=== PATIENT | male | born 1940 | race Caucasian/White ===

== ENCOUNTER 2018-07-09 09:51 | Outpatient (CLI) | payer MEDICARE, SELFPAY ==
--- NOTE | 2018-07-09 10:03 | DI.RAD_ITS ---
SYMPTOM/DIAGNOSIS: LT WRIST PAIN, M25.532 LEFT WRIST: No trauma history is provided. The bony structures are normally mineralized. There are moderate degenerative changes involving the first metacarpal multangular joint. Elsewhere minimal DJD is evident.
== END 2018-07-09 10:11 ==
PROVIDERS: PCP Family Medicine; Visit Provider Family Medicine
DX: M25.532 Pain in left wrist (principal); M19.232 Secondary osteoarthritis, left wrist
CPT/HCPCS: 73110

== ENCOUNTER → 2018-09-13 14:18 | Outpatient (BNVA) | payer MEDICARE, SELFPAY | PROVIDERS: PCP Family Medicine; Visit Provider Urology | DX: R97.20 Elevated prostate specific antigen [PSA] (principal); N47.5 Adhesions of prepuce and glans penis | CPT/HCPCS: 99213 ==

== ENCOUNTER 2018-10-10 02:07 | Outpatient (CLI) | payer OTHER, SELFPAY ==
[2018-10-10 11:12] LABS: HCT 40.2 % (40.0-50.0); HGB 13.7 g/dL (13.5-17.5); Mean Corp. HGB Concentration 34.1 g/dL (32.0-36.0); Mean Corpuscular Hemoglobin 32.9 pg (27.0-33.0); Mean Corpuscular Volume 96.4 fL (80-95); Mean Platelet Volume 10.9 fL (8.0-11.0); Platelet Count 157 x1000/uL (130-400); RBC 4.17 m/cumm (4.50-6.00); RBC Distribution Width 13.8 % (11.8-14.1); White Blood Cell Count 6.53 k/cumm (4.4-10.8)
[2018-10-10 11:25] LABS: Cholesterol 173 mg/dL (50-200); HDL Cholesterol 55 mg/dL (40-60); LDL CHOLESTEROL 97 mg/dL (<100); Triglyceride 96 mg/dL (30-150)
[2018-10-10 11:36] LABS: Uric Acid 4.1 mg/dL (3.5-7.2)
[2018-10-11 10:38] LABS: PSA, Diagnostic 19.3 ng/ml (0-6.5)
== END 2018-10-10 02:27 ==
PROVIDERS: PCP Family Medicine; Visit Provider Urology
DX: E78.5 Hyperlipidemia, unspecified (principal); M10.9 Gout, unspecified; K22.70 Barrett's esophagus without dysplasia; R97.20 Elevated prostate specific antigen [PSA]
CPT/HCPCS: 36415; 80061; 83721; 85027; 84153; 84550

== ENCOUNTER 2018-11-13 01:25 | Outpatient (CLI) | payer OTHER, SELFPAY ==
[2018-11-14 10:36] LABS: PSA, Diagnostic 18.5 ng/ml (0-6.5)
== END 2018-11-13 01:45 ==
PROVIDERS: PCP Family Medicine; Visit Provider Urology
DX: R97.20 Elevated prostate specific antigen [PSA] (principal)
CPT/HCPCS: 36415; 84153

== ENCOUNTER 2019-04-29 01:33 | Outpatient (CLI) | payer OTHER, SELFPAY ==
[2019-04-30 09:34] LABS: PSA, Diagnostic 18.9 ng/ml (0-6.5)
== END 2019-04-29 01:53 ==
PROVIDERS: PCP Family Medicine; Visit Provider Urology
DX: R97.20 Elevated prostate specific antigen [PSA] (principal)
CPT/HCPCS: 36415; 84153

== ENCOUNTER → 2019-05-09 15:17 | Outpatient (BNVA) | payer OTHER, SELFPAY | PROVIDERS: PCP Family Medicine; Visit Provider Urology | DX: R97.20 Elevated prostate specific antigen [PSA] (principal) | CPT/HCPCS: 99213 ==

== ENCOUNTER 2019-10-14 02:13 | Outpatient (CLI) | payer OTHER, SELFPAY ==
[2019-10-14 13:25] LABS: HCT 40.8 % (40.0-50.0); Mean Corp. HGB Concentration 34.3 g/dL (32.0-36.0); Mean Corpuscular Volume 96.2 fL (80-95); Mean Platelet Volume 10.7 fL (8.0-11.0); Platelet Count 156 x1000/uL (130-400); RBC 4.24 m/cumm (4.50-6.00); RBC Distribution Width 13.5 % (11.8-14.1); White Blood Cell Count 5.32 k/cumm (4.4-10.8)
[2019-10-15 10:38] LABS: PSA, Diagnostic 19.7 ng/mL (0.0-6.5)
== END 2019-10-14 02:33 ==
PROVIDERS: Urology; PCP Family Medicine; Visit Provider Family Medicine
DX: M10.9 Gout, unspecified (principal); K44.9 Diaphragmatic hernia without obstruction or gangrene; R97.20 Elevated prostate specific antigen [PSA]
CPT/HCPCS: 36415; 85027; 84153; 84550

== ENCOUNTER → 2019-11-07 08:52 | Outpatient (BNVA) | payer OTHER, SELFPAY | PROVIDERS: PCP Family Medicine; Referring Provider Family Medicine; Visit Provider Urology | DX: R97.20 Elevated prostate specific antigen [PSA] (principal); N40.0 Benign prostatic hyperplasia without lower urinary tract symptoms | CPT/HCPCS: 99213 ==

== ENCOUNTER 2020-11-01 02:38 | Outpatient (CLI) | payer OTHER, SELFPAY ==
[2020-11-01 12:33] LABS: Calculated LDL 91 mg/dL (<100); Cholesterol 160 mg/dL (<200); HDL Cholesterol 55 mg/dL (40-60); Triglyceride 70 mg/dL (<150)
[2020-11-01 22:29] LABS: PSA, Diagnostic 30.8 ng/mL (0.0-6.5)
== END 2020-11-01 02:39 | disposition home or self-care (01) ==
PROVIDERS: PCP Family Medicine; Visit Provider Family Medicine
DX: E78.5 Hyperlipidemia, unspecified (principal); C61 Malignant neoplasm of prostate
CPT/HCPCS: 36415; 80061; 84153

== ENCOUNTER → 2020-11-11 14:51 | Outpatient (BNVA) | payer OTHER, SELFPAY | PROVIDERS: PCP Family Medicine; Referring Provider Family Medicine; Visit Provider Nurse Practitioner Gerontology | DX: R97.20 Elevated prostate specific antigen [PSA] (principal); N40.0 Benign prostatic hyperplasia without lower urinary tract symptoms | CPT/HCPCS: 81003; 99214 ==

== ENCOUNTER 2021-05-04 03:29 | Outpatient (CLI) | payer OTHER, SELFPAY ==
[2021-05-04 22:12] LABS: PSA, Diagnostic 35.9 ng/mL (0.0-6.5)
== END 2021-05-04 03:30 | disposition home or self-care (01) ==
LOC: LBO 03:29
PROVIDERS: PCP Family Medicine; Visit Provider Nurse Practitioner Gerontology
DX: R97.20 Elevated prostate specific antigen [PSA] (principal)
CPT/HCPCS: 36415; 84153

== ENCOUNTER → 2021-05-10 14:54 | Outpatient (BNVA) | payer OTHER, SELFPAY | PROVIDERS: PCP Family Medicine; Referring Provider Family Medicine; Visit Provider Nurse Practitioner Gerontology | DX: R39.89 Other symptoms and signs involving the genitourinary system (principal); R97.20 Elevated prostate specific antigen [PSA] | CPT/HCPCS: 99214 ==

== ENCOUNTER 2021-05-26 01:23 | Outpatient (CLI) | payer OTHER, SELFPAY ==
--- NOTE | 2021-05-26 08:15 | DI.US_ITS ---
Exam(s) US PROSTATE BIOPSY EXAM: US PROSTATE BIOPSY CLINICAL HISTORY: ELEVATED PSA,R97.20 TECHNIQUE: Transrectal ultrasound was provided for Dr. Roe for guidance with performing prostate b iopsy. COMPARISON: No exams were available for comparison FINDINGS: No images were obtained. Please see procedure note for details. DATA REPOSITORY:
--- NOTE | 2021-05-26 14:10 | PROST_PTH ---
PATIENT: Ministerio Trevino LOC: [facility] U#:[id number] AGE/SX: 80/M ROOM: RE05/26/[address]: Lynne Beebe DNP : 1940 BED: DIS: 05/26/2021 SPEC #: [id number] RECD: 05/26/21 16:11 STATUS: ANG RE #: [id number] DENAE: 05/26/21 14:[address]: Lynne Bermudez DEPT: Surgical Specimen RECD BY: Manju Del Rio ENTERED: 05/26/21 16:14 SP TYPE: PROST OTHR DR: Demarco Lopez MD Tissues: 1 - PROSTATE NEEDLE BIOPSY 2 - PROSTATE NEEDLE BIOPSY 3 - PROSTATE NEEDLE BIOPSY 4 - PROSTATE NEEDLE BIOPSY 5 - PROSTATE NEEDLE BIOPSY 6 - PROSTATE NEEDLE BIOPSY 7 - PROSTATE NEEDLE BIOPSY 8 - PROSTATE NEEDLE BIOPSY 9 - PROSTATE NEEDLE BIOPSY 10 - PROSTATE NEEDLE BIOPSY 11 - PROSTATE NEEDLE BIOPSY 12 - PROSTATE NEEDLE BIOPSY Procedures: GROSS AND MICRO LEVEL 4 Comments: [id number]
--- NOTE | 2021-05-26 15:00 | W.PM.OP ---
Date of service: 05/26/21 Time of Service: 15:00 Operative Note Operative Note DATE OF PROCEDURE: 05/26/21 PRE-OP DIAGNOSIS: PSA elevated POST-OP DIAGNOSIS: same PROCEDURE: Transrectal ultra sound guided biopsy of the prostate SURGEON: Allen Roe ANESTHESIA TYPE: Local By Surgeon Refer to Anesthesia Record ESTIMATED BLOOD LOSS: 5 PATHOLOGY: other (12 laterally directed biopsies from the prostate) COMPLICATIONS: None Patient was transported to: same day Patient's condition: stable Indications: This is a 80-year-old gentleman who has had a negative prostate biopsy in the past. His PSA has gradually been raising and is now up to 35 ng/dL. He presents for repeat biopsy. Findings: Prostate volume 53 cc Procedure Description: The patient was given a preprocedural antibiotic and mechanical bowel prep. He is brought to the radiology suite on 05/26/2021. He was then placed in the left lateral position. The transrectal ultrasound probe was placed and the prostate was imaged in transverse and longitudinal planes. The prostatic volume was 53 cc. A periprostatic nerve block was then performed using 1% Xylocaine. The transition zone was enlarged. The peripheral zone was somewhat asymmetric with the left side being larger than the right. A total of 12 laterally directed biopsies were then taken. Each of the biopsies was labeled and sent to pathology for permanent section. The patient tolerated this procedure well. He will return in 2 weeks to review the pathology results.
== END 2021-05-26 01:43 ==
PROVIDERS: PCP Family Medicine; Visit Provider Nurse Practitioner Gerontology
DX: R97.20 Elevated prostate specific antigen [PSA] (principal); C61 Malignant neoplasm of prostate
CPT/HCPCS: 55700; 76942; 88305

== ENCOUNTER → 2021-06-10 10:53 | Outpatient (BNVA) | payer OTHER, SELFPAY | PROVIDERS: PCP Family Medicine; Referring Provider Family Medicine; Visit Provider Urology | DX: C61 Malignant neoplasm of prostate (principal) | CPT/HCPCS: 99215 ==

== ENCOUNTER 2021-06-24 02:28 | Outpatient (CLI) | payer OTHER, SELFPAY ==
--- NOTE | 2021-06-24 06:45 | DI.CT_ITS ---
Exam(s) CT ABDOMEN PELVIS W EXAM: CT ABDOMEN PELVIS W CLINICAL HISTORY: r/o mets,PROSTATE CA,C61 TECHNIQUE: Imaging Protocol: Axial computed tomography images with coronal and sagittal reformatted images were created and reviewed CONTRAST MATERIAL: Intravenous: Omnipaque 350 Contrast volume:100 mL Oral: Yes COMPARISON: CT CHEST FOR PULMONARY EMBOLUS from 08/18/2016 FINDINGS: ABDOMEN: Lung Bases: Normal where visualized. Small hiatal hernia. Liver: Normal density. No measurable mass. There is a lobulated contour of the liver suggesting hepat ic cirrhosis. Please correlate clinically. Portal, Superior Mesenteric, and Splenic Veins: Unremarkable. Gallbladder and Biliary Tract: No radiodense calculus or dilation. Pancreas: Normal density, no abnormal calcifications or inflammatory process. Spleen: Normal. Adrenals: No masses seen. Kidneys: Normal size, contour and axis. No radiodense stones or obstructive uropathy. No masses seen. Abdominal Aorta: Abdominal portion non-dilated. Moderate atherosclerosis. Bowel: No obstruction or bowel wall thickening. Appendix is unremarkable. There is diverticulosis see n in the sigmoid colon, but no evidence of acute diverticulitis. Peritoneal Cavity: No ascites, collection or mesenteric inflammatory response. No free air. Lymph Nodes: Within normal limits. Bones: Within normal limits for the patient's age. No lytic or sclerotic lesions are seen. Soft Tissues: Unremarkable. PELVIS: Bladder: There is diffuse thickening of the wall of the urinary bladder. This may be due to chronic bladder outlet obstruction but an infectious/inflammatory process cannot be excluded. Reproductive Organs: The prostate gland is enlarged and lobulated. There is heterogeneous enhancemen t. Lymph Nodes: Within normal limits. Bones: No lytic or sclerotic lesions. IMPRESSION: 1. No evidence of abdominal or pelvic metastatic disease. 2. Enlarged heterogeneously enhancing prostate gland. 3. Diffuse thickening of the wall of the urinary bladder. Differential considerations include underd istention, chronic bladder outlet obstruction, or an infectious/inflammatory process. Please clinica lly correlate. 4. Lobulated contour of the liver suspicious for hepatic cirrhosis. 5. Sigmoid diverticulosis, but no evidence of acute diverticulitis. RADIATION DOSE DELIVERED: 767.88mGy.cm Total DLP DATA REPOSITORY: All CT scans at this facility are submitted to the National Radiology Data Registry (NRDR) Dose Index Registry (DIR) with the [employer] (ACR). RADIATION OPTIMIZATION: All CT scans at this facility use at least one of these dose optimization te chniques: automated exposure control; mA and/or kV adjustment per patient size (includes targeted exa ms where dose is matched to clinical indication); or iterative reconstruction.
--- NOTE | 2021-06-24 06:55 | DI.NM_ITS ---
Exam(s) NM BONE SCAN WHOLE BODY GRP EXAM: NM BONE SCAN WHOLE BODY GRP CLINICAL HISTORY: r/o mets,PROSTATE CA,C61. TECHNIQUE: Injected Dose: 26 mCi Tc-99m MDP Delayed Images: 2-3 hours. COMPARISON: CR LEFT KNEE LIMITED 1 OR 2 VIEWS from 08/13/2012 CR LEFT KNEE LIMITED 1 OR 2 VIEWS from 08/13/[address] ABDOMEN PELVIS W from 06/24/2021 FINDINGS: Symmetric axial uptake. Bilateral renal excretion is identified. There is a focus of increased radiot racer uptake at the right aspect of the L4-L5 disc level. Comparison with a CT scan performed the show degenerative changes in this region. No lytic or sclerotic lesion is identified in this area. There is a photopenic area in the left knee consistent with the patient's known left total kne e replacement. There is symmetric activity in the shoulders most consistent with degenerative change s. IMPRESSION: 1. No evidence of metastatic disease. 2. Uptake in the lumbar spine at the L4-5 level on the right likely reflecting the degenerative celeste es seen on the CT scan from 06/24/2021. DATA REPOSITORY:
[2021-06-24] MEDS: Omnipaque 350 MG/ML 50 ML BTL IJ (09:11)
[2021-06-24] MEDS: Breeza Beverage 473 ML BTL PO (09:13)
== END 2021-06-24 02:48 ==
PROVIDERS: PCP Family Medicine; Visit Provider Urology
DX: C61 Malignant neoplasm of prostate (principal); M47.816 Spondylosis without myelopathy or radiculopathy, lumbar region; K57.30 Diverticulosis of large intestine without perforation or abscess without bleeding; N40.0 Benign prostatic hyperplasia without lower urinary tract symptoms
CPT/HCPCS: 78306; 74177; 82565; Q9967

== ENCOUNTER → 2021-06-27 14:56 | Outpatient (BNVA) | payer OTHER, SELFPAY | PROVIDERS: PCP Family Medicine; Referring Provider Family Medicine; Visit Provider Urology | DX: C61 Malignant neoplasm of prostate (principal) | CPT/HCPCS: 96402; J9217 ==

== ENCOUNTER → 2021-07-14 14:49 | Outpatient (BNVA) | payer OTHER, SELFPAY | PROVIDERS: PCP Family Medicine; Referring Provider Family Medicine; Visit Provider Physical Therapy Assistant | DX: R13.10 Dysphagia, unspecified (principal) | CPT/HCPCS: 99213 ==

== ENCOUNTER → 2021-07-28 13:26 | Outpatient (BNVA) | payer OTHER, SELFPAY | PROVIDERS: PCP Family Medicine; Referring Provider Family Medicine; Visit Provider Nurse Practitioner Gerontology | DX: C61 Malignant neoplasm of prostate (principal) | CPT/HCPCS: 96402; J9217 ==

== ENCOUNTER 2021-07-29 03:16 | Outpatient (CLI) | payer OTHER, SELFPAY ==
[2021-07-29 10:47] LABS: Source Nasal/Nares
[2021-07-29 15:01] LABS: COVID-19 PCR Negative (Negative)
== END 2021-07-29 03:17 | disposition home or self-care (01) ==
LOC: LBO 03:16
PROVIDERS: PCP Family Medicine; Visit Provider Surgery
DX: Z20.822 Contact with and (suspected) exposure to COVID-19 (principal); Z01.818 Encounter for other preprocedural examination
CPT/HCPCS: 87635

== ENCOUNTER 2021-08-01 08:14 | Day surgery (SDC) | payer OTHER, SELFPAY ==
--- NOTE | 2021-08-01 06:34 | W.PM.ENDDOP ---
Date of service: 08/01/21 Time of Service: 09:59 Endoscopy Report DATE OF PROCEDURE: 08/01/21 PRE-OP DIAGNOSIS: Dysphagia POST-OP DIAGNOSIS: other (Hiatal Hernia, Esophagitis, Gastritis with polyps) PROCEDURE: EGD with biopsies SURGEON: Kayla Chaves ANESTHESIA TYPE: General:No Airway (Carmen Mathis CRNA) ESTIMATED BLOOD LOSS: 3 PATHOLOGY: other (Antrum Bx, Cardia bx, Distal esophagus bx) COMPLICATIONS: None DISPOSITION: same day INDICATIONS: 80 y/o male with a history of GERD, hiatal hernia and hyperlipidemia presents for further evaluation of dysphagia. Patient has previously under gone several EGDs at [facility] in 2013, 2015, 2018 for surveillance of his Barretts esophagus.. He reports being due in 2022. Most recent Colonoscopy was in 2018 which was remarkable for a single polyp, with recommended follow up in 5 years. However, he has been progressively having difficulty swallowing items such as meats. He and his describe frequent coughing through all meals. He denies any pain with swallowing, heart burn, abdominal pain or bloating. FINDINGS: Inflammation of the stomach with several polyps Hiatal hernia Inflammation of the distal esophagus PROCEDURE DESCRIPTION: After informed consent was obtained the patient was take to the procedure room and placed in a supine position. Monitors were applied and a time out was done. The patients name, date of , procedure type, allergies to medications and metal in their body was reviewed. A bite block was placed and the patient was sedated. Once sedated and comfortable the gastroscope was advanced through the oropharynx which was grossly normal into the esophagus. The proximal and mid-esophagus were normal. In the distal esophagus there was inflammation noted. The scope was advanced into the stomach and through the pylorus into the 3rd portion of the duodenum. The duodenum was noted to be normal. The scope was retracted back into the stomach and biopsies were done to rule out H. pylori. There were no ulcers. There was moderate inflammation throughout the stomach. There were 2 polyps in the cardia which were biopsied. The scope was retroflexed. The cardia and fundus were noted to have inflammation. There was a hiatal hernia noted. The scope was retracted back into the esophagus and biopsies were done of the GE junction to rule out Landers's. The Z line was irregular. The GE junction was at 38 cm. There was erosion of the esophageal lining at 37 cm and this was biopsied. The scope was removed and the patient was woken up and taken back to [facility] in stable condition. Follow up: I will call patient with results. Add Carafate to take TID before meals
--- NOTE | 2021-08-01 06:35 | PDOC.DSDIS_ITS ---
Discharge Plan Disposition Patient Disposition: HOME Condition: Good Discharge Details Reason For Visit: EGD Attending Provider: Kayla Chaves Primary Care Provider: Demarco Lopez Home Meds and New Rx's Prescriptions: New sucralfate [Carafate] 1 gram tablet 1 g PO TID 14 Days Qty: 42 RF: 0 Continued fluocinonide 0.05 % cream 1 applic TP PRN RF: 0 triamcinolone acetonide 0.1 % cream 1 applic TP PRN RF: 0 creamy vaseline See Rx Instructions topical .COMPLEX RF: 0 vitamin B complex [B Complex-Vitamin B12] Tablet 1 tab PO DAILY RF: 0 valacyclovir 1 gram tablet 1,000 mg PO DAILY Qty: 30 RF: 2 pantoprazole 40 mg tablet,delayed release (DR/EC) 40 mg PO DAILY Qty: 90 RF: 4 simvastatin 40 mg tablet 40 mg PO DAILY Qty: 90 RF: 4 allopurinol 300 mg tablet 300 mg PO DAILY Qty: 90 RF: 4 cholecalciferol (vitamin D3) 10 mcg (400 unit) capsule 10 mcg PO DAILY RF: 0 calcium carbonate [Calcium 600] 600 mg calcium (1,500 mg) tablet 600 mg PO DAILY RF: 0 Lupron Depot (3 month) 11.25 mg Syringe Kit IM RF: 0 Discharge Instructions Instructions: Diet for Stomach Ulcers and Gastritis (ED), Gastritis (DC), Gastric Polyps (DC), Hiatal Hernia (DC), Esophagitis (DC) Additional Instructions: Findings: Inflammation of the stomach, esophagus Hiatal hernia Follow up: I am ordering a Barium swallow to look at the function of the esophagus and make sure you are not aspirating Please call if you develop: fevers >101.5 Nausea or Vomiting Abdominal pain that is not transient Rectal bleeding that is more then a tbsp A hard abdomen and inability to pass gas DAY SURGERY UNIT POST ENDOSCOPY INSTRUCTIONS Instructions for everyone who is given Anesthesia: For your safety, please do the following for the next 24 Hours: a. Do not drive or operate dangerous equipment b. Do not drink alcohol beverages or use any recreational drugs for the first 24 hours or while taking pain medications. The medications in your body may have a reaction that can be dangerous. c. Do not make any important decisions or sign any important papers 1. Generally there are no restrictions on your activity after a day or so has gone by, but you may feel a bit fatigued for a few days. 2. After you arrive home you may have a light meal and return to a normal diet as you can tolerate it without feeling sick to your stomach. 3. After surgery, you may feel pain or discomfort. This should be only transi ent, but if it persists please contact your doctor. 4. If there are any questions regarding the findings of your procedure, please feel free to contact your doctor. 6. If you are unable to contact your doctor with a problem, contact the hospital at [phone]. 7. Continue all your regular medications unless directed otherwise. I understand the above instructions and have no questions. Signature of Patient or Responsible Adult Escort Date/Time Name of Responsible Adult Escort Signature of Nurse Date/Time Activity:: Activity as Tolerated Diet:: low acid Discharge Orders Discharge Orders: Discharge Order (Routine); Ordered 08/01/21 Ordered By: Kayla Chaves
[2021-08-01 08:43] VITALS: BP 128/60; PULSE 54; RESP 16; TEMP 36.4; O2SAT 97
--- NOTE | 2021-08-01 09:03 | ANES.PREOP_ITS ---
General Info Date of Service Date Performed: 08/01/21 Height: 5 ft 6 in Weight: 78.4 kg Body Mass Index (BMI): 27.8 Surgical Procedure: Operation Date: 08/01/21 09:50 Proposed Procedures Side Surgeon p Gastroscopy Kayla Chaves MD Meds Allergies and Home Medications Allergies Allergy/AdvReac Type Severity Reaction Status Date / Time No Known Allergies Allergy Verified 08/01/21 08:36 Home Medication Medication Instructions Recorded creamy vaseline See Rx Instructions TOPICAL 10/17/19 .COMPLEX fluocinonide 0.05 % topical cream 1 applic TP PRN gm 10/17/19 triamcinolone acetonide 0.1 % 1 applic TP PRN gm 10/17/19 topical cream allopurinol 300 mg tablet 300 mg PO DAILY #90 tab-cap 10/22/20 pantoprazole 40 mg tablet,delayed 40 mg PO DAILY #90 tab-cap 10/22/20 release simvastatin 40 mg tablet 40 mg PO DAILY #90 tab-cap 10/22/20 valacyclovir 1 gram tablet 1,000 mg PO DAILY #30 tab 10/22/20 vitamin B complex 1 tab PO DAILY 10/22/20 calcium carbonate 600 mg calcium 600 mg PO DAILY 07/14/21 (1,500 mg) tablet cholecalciferol (vitamin D3) 10 10 mcg PO DAILY 07/14/21 mcg (400 unit) capsule leuprolide (3 month) [Lupron Depot mg IM 08/01/21 (3 month)] Current Visit Medications: Current Medications Generic Name Dose Route Start Last Admin Trade Name Freq PRN Reason Stop Dose Admin Hyoscyamine Sulfate 0.125 mg 08/01/21 06:36 Hyoscyamine 0.125 Mg Sl/Oral/Chew SL DIRECTED PRN Ringer's Solution 1,000 mls @ 80 mls/hr 08/01/21 06:00 IV 08/28/21 23:59 INFUSION ZONIA IV Miscellaneous Supplies 1 each 08/01/21 06:00 Iv Access IV 08/28/21 23:59 DIRECTED [facility] Ondansetron HCl 4 mg 08/01/21 06:36 Ondansetron 4 Mg/2 Ml Vial IVP Q4H PRN PRN Nausea / Vomiting Sodium Chloride 0 ml 08/01/21 06:00 Normal Saline Flush 10 Ml Syr IV 08/28/21 23:59 PRN PRN Sodium Chloride 0 ml 08/01/21 06:00 Normal Saline 10 Ml Vial IJ 08/28/21 23:59 DIRECTED PRN Sterile Water 0 ml 08/01/21 06:00 Water,Injection,Sterile 10 Ml Vial IJ 08/28/21 23:59 DIRECTED PRN PFSH Active Problems Active Problems: Problem Status Onset Code 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 game Surgical History Surgical History Arthroplasty of knee 10/03/11; LEFT LACERATION REPAIR (09/23/1949) NASOPHARYNGOSCOPY (08/17/97) Tonsillectomy (~1947) Tobacco Smoking/Tobacco Use Status: Former Tobacco Use Passive smoking exposure: Yes Second hand exposure: Yes Alcohol Alcohol Intake: current Alcohol intake frequency: 0-2 drinks per day Alcohol type: beer and hard liquor Substance Use Substance use: Never Substance use type: does not use Details: alcohol: t-1 , 1/4 ounce alcohol Vital Signs and Lab Results Vital Signs Most Recent Vital Signs in EMR: Most Recent Vital Signs Temp Pulse Resp BP Pulse Ox 36.4 C L 54 L 16 128/60 97 08/01/21 08:43 08/01/21 08:43 08/01/21 08:43 08/01/21 08:43 08/01/21 08:43 Lab Results Blood Type / Crossmatch: No Data to Display Complete Blood Count: No Data to Display Complete Metabolic Panel: No Data to Display Liver Function Panel: No Data to Display Coagulation Panel: No Data to Display Cardiac Panel: No Data to Display Arterial Blood Gas: No Data to Display Venous Blood Gas: No Data to Display Pancreas Panel: No Data to Display Thyroid Panel: No Data to Display Infectious Disease: Coronavirus (COVID-19)(PCR) Negative (Negative) 07/29/21 09:01 07/29/21 Coronavirus 2019 Source Nasal/Nares 07/29/21 09:01 07/29/21 Blood Cultures: No Data to Display Toxicology Panel: No Data to Display Imaging and Studies Imaging and Studies Stress Test Summary: Summary: 1. Myocardial perfusion imaging: No myocardial perfusion defects noted. 2. Stress ECG conclusions: Barrios treadmill score: -21. This score predicts a high risk of cardiac events. 3. Impressions: Typical symptoms developed with exercise. Significant EKG changes in multiple leads with prolonged time to improvement in recovery. Abnormal hemodynamics with exercise. Normal perfusion, however significant loop of bowel on rest images. No TID. Patient will likely require LHC, patient should follow up with cardiology. 09/06/15 Anesthesia Assessment and Plan Anesthesia History Personal History: No History of Anesthesia Complications Family History: No Family History of Anesthesia Complications Exercise Tolerance Exercise Tolerance: Metabolic Equivalents>4 Pertinent Negatives Pertinent Negatives: No Symptoms of GERD (Dysphagia), No Major Cardiovascular Symptoms or Complaints, No Major Pulmonary Symptoms or Complaints and No History of CVA/TIA Cardiac & Pulmonary Exam Cardiac Exam: Normal S1/S2 Heart Sounds Pulmonary Exam: Clear Bilateral Breath Sounds Implantable Cardiac Device Does patient have a Pacemaker or an ICD?: No Airway Exam Known Difficult Airway: No Mallampati Class: 2 Mouth Opening: Normal (> 3cm) Thyromental Distance: Greater than 3 cm Neck Range of Motion: Full ROM Neck Circumference: Normal Teeth Condition: Normal Dentition ASA Classification ASA Score: ASA 2 Emergency Case?: No NPO Status NPO Status: NPO Clears >2 hours, Solids >8 hours Anesthesia Plan Resuscitation Status: Full Code Anesthesia Technique: General Anesthesia Airway Planned: Natural Airway Monitors Used: Standard Monitors
[2021-08-01] MEDS: Lactated Ringers 1,000 ML 80 ML IV (09:05)
[2021-08-01 09:30] VITALS: BMI 27.8
--- NOTE | 2021-08-01 09:45 | STOM_PTH ---
PATIENT: Ministerio Trevino LOC: [facility] U#:[id number] AGE/SX: 80/M ROOM: RE08/01/[address]: Kayla Chaves MD : 1940 BED: DIS: 08/01/2021 SPEC #: [id number] RECD: 08/01/21 12:30 STATUS: ANG REQ #: [id number] DENAE: 08/01/21 09:[address]: Kayla Chaves DEPT: Surgical Specimen RECD BY: Manju Del Rio ENTERED: 08/01/21 12:31 SP TYPE: STOMACH OTHR DR: Demarco Lopez MD Tissues: 1 - STOMACH BIOPSY 2 - STOMACH BIOPSY 3 - ESOPHAGUS BIOPSY Procedures: GROSS AND MICRO LEVEL 4 Comments: [id number]
[2021-08-01 10:00] VITALS: BP 132/65; PULSE 68; RESP 20; TEMP 36.4; O2SAT 99
[2021-08-01 10:28] VITALS: BP 105/55; PULSE 49; RESP 18; TEMP 36.4; O2SAT 100
--- NOTE | 2021-08-01 10:34 | W.ANESPOSTOP ---
Postoperative Evaluation Date, Time and Location Date Performed: 08/01/21 Time Performed: 10:00 Patient Location: Day Surgery Unit Vital Signs Most Recent Imported Vital Signs: Most Recent Vital Signs Temp Pulse Resp BP Pulse Ox 36.4 C L 68 20 132/65 99 08/01/21 10:00 08/01/21 10:00 08/01/21 10:00 08/01/21 10:00 08/01/21 10:00 Pain Score Most Recent Pain Score: Most Recent Pain Score Pain Level 0 08/01/21 10:00 Assessment Mental Status: Awake (Alert & Oriented to Patient Baseline) Airway and Respiratory Function: Patent airway with normal (patient baseline) respiratory exam Cardiovascular Function: Hemodynamically Stable Hydration Status: Adequately Hydrated Nausea & Vomiting: No Nausea or Vomiting Pain: Pt. Denies Any Pain Peripheral Nerve Block: Patient did not receive a nerve block
== END 2021-08-01 11:04 | disposition home or self-care (01) ==
PROVIDERS: PCP Family Medicine; Visit Provider Surgery
PROC: 0DJ68ZZ Inspection of Stomach, Via Natural or Artificial Opening Endoscopic (ICD-10-PCS; CPT 43235; principal; 2021-08-01 09:45)
DX: K29.70 Gastritis, unspecified, without bleeding (principal); K22.70 Barrett's esophagus without dysplasia; K44.9 Diaphragmatic hernia without obstruction or gangrene; K31.7 Polyp of stomach and duodenum; K20.90 Esophagitis, unspecified without bleeding; E78.5 Hyperlipidemia, unspecified
CPT/HCPCS: 43239; 88305; J2001; J2704

== ENCOUNTER 2021-08-12 01:46 | Outpatient (CLI) | payer OTHER, SELFPAY ==
--- NOTE | 2021-08-12 07:30 | DI.RAD_ITS ---
Exam(s) RF BARIUM SWALLOW UGI EXAM: RF BARIUM SWALLOW UGI CLINICAL HISTORY: Dysphagia, ? aspiration, BARRETTS ESOPHAGUS, HIATAL HERNIA TECHNIQUE: 2D and realtime digital imaging was performed. CONTRAST MATERIAL: Thick and thin barium and barium tablet were administered. COMPARISON: CT CT ABDOMEN PELVIS W from 06/24/2021 FINDINGS: The lateral tack cutter view of the neck shows degenerative changes, greatest at C 6 7. No prevertebral so ft tissue swelling. Epiglottis appears normal. PA and lateral chest tack cutter so normal heart size and clear lung michael. Mildly tortuous aorta. Mild degenerative changes are noted in the spine. Automobile Technician view of the abdomen shows a normal bowel gas pattern. Degenerative changes and mild scoliosis are no bridgette. There is no evidence of organomegaly. There are no visible urinary tract calculi. Patient swallowed barium without difficulty. Laryngeal penetration and alannah aspiration was observed . Esophageal peristalsis appears normal. There is some pooling in the vallecula and piriform sinuse s. There is a prominent cricopharyngeus impression. A tiny Zenker's diverticulum is also present. There is a small hiatal hernia. No significant reflux was observed. there is no evidence of ulcera tion, stricture or mass in the esophagus, stomach or duodenum. Barium tablet passed into the stomach without delay. Multiple diverticula are noted in the jejunum. IMPRESSION: 1. Significant aspiration during the swallow. 2. Small hiatal hernia. Tiny Zenker diverticulum. 3. Multiple jejunal diverticula. RADIATION DOSE DELIVERED: Ka,r= mGy
[2021-08-12] MEDS: Simethicone/Sod Bicarb/Cit Ac, 4 gram PACKET 1 PACKET PO (09:44)
[2021-08-12] MEDS: Barium Sulfate 700 MG TAB PO (09:44)
[2021-08-12] MEDS: Barium Sulfate 60% W/V 355 ML BTL PO (09:44)
== END 2021-08-12 02:06 ==
PROVIDERS: PCP Family Medicine; Visit Provider Surgery
DX: R13.10 Dysphagia, unspecified (principal); K22.70 Barrett's esophagus without dysplasia; K22.5 Diverticulum of esophagus, acquired; K44.9 Diaphragmatic hernia without obstruction or gangrene; K57.10 Diverticulosis of small intestine without perforation or abscess without bleeding; R05.8 Other specified cough
CPT/HCPCS: 74221; 74246; J3490

== ENCOUNTER 2021-09-16 02:01 | Outpatient (CLI) | payer OTHER, SELFPAY ==
[2021-09-16 10:35] LABS: Source Nasal/Nares
[2021-09-17 12:51] LABS: COVID-19 PCR Negative (Negative)
== END 2021-09-16 02:02 | disposition home or self-care (01) ==
LOC: LBO 02:01
PROVIDERS: PCP Family Medicine; Visit Provider Family Medicine
DX: Z20.822 Contact with and (suspected) exposure to COVID-19 (principal)
CPT/HCPCS: 87635

== ENCOUNTER 2021-09-19 02:46 | Outpatient (CLI) | payer OTHER, SELFPAY ==
--- NOTE | 2021-09-19 08:31 | DI.RAD_ITS ---
Exam(s) RF MODIFIED SPEECH BA SWALLOW TECHNIQUE: Modified barium swallow was performed in conjunction with speech pathology. CONTRAST MATERIAL: Oral barium Oral water soluble contrast was administered. COMPARISON: No exams were available for comparison FINDINGS: FLUOROSCOPY WAS PROVIDED DURING MODIFIED BARIUM SWALLOW PERFORMED BY THE SPEECH PATHOLOGIST. Please see speech pathology report for details. There was penetration but no alannah aspiration on this study. No Zenker's diverticulum. Hypertense u pper esophageal sphincter was demonstrated. IMPRESSION: Penetration but no aspiration evident. See separate speech pathology report. RADIATION DOSE DELIVERED: ashely Mcbride=21.3 mGy
--- NOTE | 2021-09-19 14:30 | ST.MBS ---
Date of Service Date of service: 09/19/21 Time of Service: 14:30 Modified Barium Swallow Study Findings: Videofluoroscopic Swallowing Evaluation / Modified Barium Swallow Study (VFSE/MBSS) Speech Language Pathology Report SUBJECTIVE: Patient was received in the radiology suite. He reports no interim updates to swallow fxn/medical status since last visit in our office. Agreeable to participate in instrumental swallow study this date. OBJECTIVE: Videofluoroscopic Swallow Evaluation (VFSE/MBSS) was conducted in the lateral projection by Speech-Language Pathologist, in collaboration with Radiologist, to evaluate oropharyngeal swallow function. 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 See radiologist?s note for this exam for further detail. PO barium contrast trials: Oral barium water soluble contrast was administered as follows: -IDDSI Level 0 Varibar thin liquid (40% w/v) -IDDSI Level 2 Varibar nectar thick/mildly thick liquid (40% w/v) -IDDSI Level 4 Varibar pudding/pureed/extremely thick (40% w/v) -IDDSI Level 7 Regular Solid: 1/2 brenda cracker coated in 3 mL Varibar puddin -13 mm ----Barium tablet PHYSIOLOGIC FINDINGS Oral Phase 1 Lip Closure: [0-No labial escape] 2 Tongue Control: [0- Cohesive bolus between tongue to palatal seal] though noting anterior escape during post 3 Bolus Preparation/Mastication: [0- Timely and efficient chewing/mashing] 4 Bolus Transport/Lingual Motion: [1- Delayed initiation of tongue motion] mild 5 Oral residue: [1- Trace residue lining oral structures] Location: tongue 6 Initiation of pharyngeal swallow: [0- Bolus head at posterior angle of ramus; first hyoid excursion] [2- Bolus head at posterior laryngeal surface of epiglottis] Noting depression of the hyoid bone during AP transit, and delayed initiation of hyoid excursion at times, whereas elevation of the thyroid cartilage begins during AP transit or at posterior angle of ramus Pharyngeal Phase 7 Velar Elevation: [1- Trace column of contrast or air between soft palate and pharyngeal wall] thin liquid only, appearing due to delayed elevation 8 Laryngeal Elevation: [1- Partial superior movement of thyroid cartilage with partial approximation of arytenoids to epiglottic petiole] 9 Anterior Hyoid Excursion: [1- Partial anterior movement] ? noting variable performance, more excursion with larger bolus, at times appearing without anterior movement, at times with partial. [2- No anterior movement] 10 Epiglottic Movement: [2- Absent/No inversion] 11 Laryngeal Vestibule Closure: [1- Incomplete; narrow column of air/contrast in laryngeal vestibule] Mildly thick, Thin [2- None; wide column of air/contrast in laryngeal vestibule] (variable/inconsistent with Thin liquids) Penetration occurs variably both before and during initial swallow onset from current bolus (vs. prior residue). 12 Pharyngeal Stripping Wave: [1- Present; diminished] 13 Pharyngeal Contraction: DNT; lack of AP view 14 PES/UES Opening: [1- Partial distension and partial duration; partial obstruction of flow] 15 Tongue Base Retraction: [2- Narrow column of contrast between tongue base and posterior pharyngeal wall] [3- Wide column of contrast between tongue base and posterior pharyngeal wall ] variable 16 Pharyngeal residue: [2- Collection of residue within or on pharyngeal structures ] Location: Diffuse: Valleculae>Pyriform sinuses > tongue base, aryepiglottic folds Herlinda Pharyngeal Residue Severity Rating Scale (YPRS) (Blade, et al, 2015) Vallecula Residue Severity IV Moderate 25-50% Epiglottic ligament covered (liquid trials) V Severe >50% Filled to epiglottic rim] (pudding thick, regular solid trials) Pyriform Sinus Residue Severity II Trace 1-5% Trace coating of the mucosa (liquids) III Mild 5-25% Up wall to quarter full (pudding, solids) Esophageal Phase 17 Esophageal Clearance Upright Position: [DNT; lack of AP view] though noting at time of exam Radiologist noting esophageal retention of barium tablet NOTE: This study was performed for interpretation only of the oropharyngeal and pharyngoesophageal domains of swallowing. It is not intended to diagnose any other radiologic abnormalities or substitute for a formal esophagram study. Overall 8-Point Penetration-Aspiration Scale (PAS) (Tarik, et al, 1996) 1 - No material enters the airway. (Pudding thick & regular solids) 2 - Material enters the airway, remains above the vocal folds, and is ejected from the airway. 3 - Material enters the airway, remains above the vocal folds, and is not ejected from the airway. 4 - Material enters the airway, contacts the vocal folds, and is ejected from the airway. (Mildly thickened liquids, thin liquids (variable) 5 - Material enters the airway, contacts the vocal folds, and is not ejected from the airway. (Thin liquids) 6 - Material enters the airway, passes below the vocal folds, and is ejected into the larynx or out of the airway. 7 - Material enters the airway, passes below the vocal folds, and is not ejected from the trachea despite effort. 8 - Material enters the airway, passes below the vocal folds, and no effort is made to eject. Clinical Indicator(s) of Prandial/Postprandial Aspiration: none Trialed Compensatory Swallow Strategies & Outcome: Postures: none Maneuvers: -3-second Preparatory Set - unsuccessful -Volitional Cough - successful -Volitional Throat Clear - successful -Secondary saliva swallow x[3]- successful to improve, not resolve pharyngeal residue. 3x swallows to clear barium tablet from valleculae, then pyriform sinus. Bolus Modifications -Delivery/Alternating Consistencies - Wash with thin liquid successful to clear barium tablet from esophagus] -Reduced Volume - successful, reduced degree of penetration for thin liquids -Increased Viscosity ? unsuccessful to eliminate penetration of liquids into laryngeal vestibule Dysphagia Outcome and Severity Scale (APRIL) [LEVEL 7 - Full PO: normal diet - Normal in all situations LEVEL 6 - Full PO: normal diet - Within functional limits/modified independence LEVEL 5 - Full PO: modified diet and/or independence - Mild dysphagia; Distant supervision, may need 1 diet consistency restricted LEVEL 4 - Full PO: modified diet and/or independence - Mild-moderate dysphagia; Intermittent supervision/cueing, 1 or 2 consistencies restricted LEVEL 3 - Full PO: modified diet and/or independence - Moderate dysphagia; Total assist, supervision, or strategies 2 or more diet consistencies restricted LEVEL 2 - Nonoral nutrition necessary - Moderate-severe dysphagia; Maximum assistance or use of strategies with partial PO only (tolerates at least 1 consistency safely with total use of strategies) LEVEL 1 - Nonoral nutrition necessary - Severe dysphagia; NPO, unable to tolerate any PO safely] IMPRESSIONS: Diagnosis: Moderate oral/pharyngeal/esophageal dysphagia, likely chronic; likely due to presbyphagia and anatomic/physiologic changes of pharynx and esophagus 2/2 chronic GERD. Characterized by reduced tongue base retraction, lack of epiglottic inversion, reduced anterior hyoid excursion, and reduced distension of PES in setting of hypertension noted by radiologist at UES. Swallow safety is impaired; swallow efficiency is impaired. Patient appears to be at low risk for potential aspiration PNA, pulmonary compromise given lack of PNA hx and high activity level, and low risk for malnutrition, low risk for dehydration. Diet modification is indicated to reduce risk of choking in setting of significant pharyngeal residue. Swallow prognosis is good given overall activity level, candidacy for oral-pharyngeal swallow exercises, and pending patient/caregiver training in risk management as outlined. Patient appears to be an excellent candidate for behavioral swallow rehabilitation. PLAN: Noting patient to receive radiation therapy early 2020 for prostate CA, may wish to coordinate scheduling of LEVELER HELPER visits with [facility] (across the [place] from our office), or may wish to defer swallow rehabilitation until after cancer treatment. Patient wishes to consider these options and contact our office when/if he wishes to engage in swallow rehabilitation. Diet recommendation: IDDSI Level 6-Soft & Bite-Sized Solids 0-Thin Liquids Please see further details at www.iddsi.org Risk Management: Behavioral reflux precautions, including upright position during + 90 mins after meals. Small bites, approx [id number] Very small sips, approx 5mL / teaspoon Multiple swallows per solid bolus (2-3) to encourage clearance of pharyngeal stasis/residue Control risk factors for aspiration pneumonia via (a) thorough oral hygiene & (b) maintaining physical mobility as tolerated Specialist referrals: n/a ? patient already followed by GI. Continue to address medical treatment of GERD with PCP. Ancillary tests: n/a ? already performed Therapy: Recommend subsequent outpatient session with LEVELER HELPER to review results of today's exam and develop treatment plan as appropriate. May consider the following: - Strategy training to decrease risk of aspiration/choking - Exercises to promote tongue base retraction, anterior hyoid excursion, and UES distension in setting of hypertensive PES 2/2 chronic GERD. - Further reflux education/counseling Goal: TBD pending patient/caregiver interview Follow-up exam: N/A at this time. If patient wishes to engage in swallow rehabilitation, a follow-up exam may be conducted in the future to monitor for improvement. Time spent: 40 minutes Thank you for allowing me to take part in this patient's care. Please feel free to contact me with any questions/concerns. Margaret Chaney M.S., CCC-LEVELER HELPER Speech Language Pathologist [phone] Coding CPT Codes MOTION FLUOROSCOPY/SWALLOW - [id number] ([id number])
[2021-09-19] MEDS: Barium Sulfate 81% w/w for Oral Suspension 148 GM BTL PO (15:47)
[2021-09-19] MEDS: Barium Sulfate Oral Paste 40% W/V 230 ML TUBE PO (15:49)
[2021-09-19] MEDS: Barium Sulfate 700 MG TAB PO (15:51)
== END 2021-09-19 03:06 ==
PROVIDERS: PCP Family Medicine; Visit Provider Speech-Language Pathologist
DX: R13.14 Dysphagia, pharyngoesophageal phase (principal); R13.11 Dysphagia, oral phase; K21.9 Gastro-esophageal reflux disease without esophagitis
CPT/HCPCS: 92611; 74221

== ENCOUNTER → 2021-10-31 14:28 | Outpatient (BNVA) | payer OTHER, SELFPAY | PROVIDERS: PCP Family Medicine; Visit Provider Nurse Practitioner Gerontology | DX: C61 Malignant neoplasm of prostate (principal) | CPT/HCPCS: 96402; J9217 ==

== ENCOUNTER 2021-12-09 20:44 | Outpatient (CLI) | payer OTHER, SELFPAY ==
--- NOTE | 2021-12-09 09:45 | DI.RAD_ITS ---
Exam(s) XR HIP RT COMPLETE AP PELVIS EXAM: XR HIP RT COMPLETE AP PELVIS CLINICAL HISTORY: RT HIP PAIN S/P FALL, PRIMARY MALIGNANT NEOPLASM OF PROSTATE, C61 TECHNIQUE: COMPARISON: CT CHEST FOR PULMONARY EMBOLUS from 08/18/[address] ABDOMEN PELVIS W from 06/24/2021 FINDINGS: Two views were obtained. There are severe degenerative changes of the lumbar spine. There are moder ate degenerative changes of the SI joints and hips. There is an ossicle projected adjacent to the ac etabulum on the right which has been present on prior examinations. There is no evidence of acute fr acture or dislocation. IMPRESSION: RADIATION DOSE DELIVERED: Total DLP
== END 2021-12-09 21:04 ==
PROVIDERS: PCP Family Medicine; Visit Provider Radiology Radiation Oncology
DX: C61 Malignant neoplasm of prostate (principal); M16.11 Unilateral primary osteoarthritis, right hip; M51.36 Other intervertebral disc degeneration, lumbar region
CPT/HCPCS: 73502

== ENCOUNTER 2021-12-14 02:28 | Outpatient (CLI) | payer OTHER, SELFPAY ==
[2021-12-14 14:37] LABS: HCT 35.3 % (40.0-50.0); HGB 11.9 g/dL (13.5-17.5); MCHC 33.7 % (32.0-36.0); MCV 97.8 fL (80-95); MPV 10.3 fL (8.0-11.0); Platelet Count 128 10^3/uL (130-400); RBC 3.61 10^6/uL (4.36-5.78); RDW 13.8 % (11.8-14.1)
[2021-12-14 16:44] LABS: Anion Gap 11.2 mmol/L (3-11); BUN 18 mg/dL (7-18); CO2 24.8 mmol/L (21.0-32.0); Calcium 9.6 mg/dL (8.5-10.1); Chloride 106 mmol/L (98-107); Glucose 93 mg/dL (74-106); Sodium 142 mmol/L (136-145)
[2021-12-14 16:58] LABS: Calculated LDL 99 mg/dL (<100); Cholesterol 182 mg/dL (<200); HDL Cholesterol 60 mg/dL (40-60); Triglyceride 119 mg/dL (<150)
[2021-12-14 22:52] LABS: PSA, Diagnostic 0.2 ng/mL (0.0-6.5)
[2021-12-20 15:16] LABS: Testosterone, Total <7.0 ng/dL (240-950)
== END 2021-12-14 02:29 | disposition home or self-care (01) ==
PROVIDERS: PCP Family Medicine; Visit Provider Family Medicine
DX: Z00.00 Encounter for general adult medical examination without abnormal findings (principal); E78.5 Hyperlipidemia, unspecified; R53.83 Other fatigue; E87.1 Hypo-osmolality and hyponatremia; C61 Malignant neoplasm of prostate
CPT/HCPCS: 36415; 80048; 80061; 84402; 84403; 85027; 84153

== ENCOUNTER → 2022-01-30 13:04 | Outpatient (BNVA) | payer OTHER, SELFPAY | PROVIDERS: PCP Family Medicine; Referring Provider Family Medicine; Visit Provider Nurse Practitioner Gerontology | DX: C61 Malignant neoplasm of prostate (principal) | CPT/HCPCS: 99213 ==

== ENCOUNTER → 2022-01-31 14:21 | Outpatient (BNVA) | payer OTHER, SELFPAY | PROVIDERS: PCP Family Medicine; Referring Provider Family Medicine; Visit Provider Nurse Practitioner Gerontology | DX: R97.20 Elevated prostate specific antigen [PSA] (principal); C61 Malignant neoplasm of prostate | CPT/HCPCS: 96402; J9217 ==

== ENCOUNTER 2022-03-06 04:00 | Outpatient (CLI) | payer OTHER, SELFPAY | END 2022-03-06 04:01 | disposition home or self-care (01) | LOC: LBO 04:00 | PROVIDERS: PCP Family Medicine; Visit Provider Nurse Practitioner Gerontology ==

== ENCOUNTER 2022-03-20 03:29 | Outpatient (CLI) | payer OTHER, SELFPAY ==
[2022-03-23 13:08] LABS: PSA, Ultrasensitive 0.02 ng/mL (<= 6.5)
[2022-03-27 15:43] LABS: Testosterone, Total <7.0 ng/dL (240-950)
== END 2022-03-20 03:30 | disposition home or self-care (01) ==
LOC: LBO 03:29
PROVIDERS: PCP Family Medicine; Visit Provider Nurse Practitioner Gerontology
DX: C61 Malignant neoplasm of prostate (principal); R97.20 Elevated prostate specific antigen [PSA]
CPT/HCPCS: 36415; 84153; 84403

== ENCOUNTER → 2022-05-24 15:11 | Outpatient (BNVA) | payer OTHER, SELFPAY | PROVIDERS: PCP Family Medicine; Referring Provider Family Medicine; Visit Provider Nurse Practitioner Gerontology | DX: C61 Malignant neoplasm of prostate (principal); R97.20 Elevated prostate specific antigen [PSA] | CPT/HCPCS: 96402; J9217 ==

== ENCOUNTER 2022-08-11 01:24 | Outpatient (CLI) | payer OTHER, SELFPAY ==
--- OUTSIDE RECORDS SUMMARY | 2022-08-11 01:25 | XMS_ITS | Encounter Summary ---
:1940 Author Organization [facility] [place] [address] Care Team Providers Name Role Phone Demarco Lopez MD Primary Care Provider [phone] Encounter Details Date Type Department Care Team Description 09/07/2021 Orders Only [facility] malignant neoplasm of prostate with high risk of recurrence due to Tai score of 8 to 10 and PSA greater than 20; [facility] BRENDA Lagunas [address] [id number] Social History Tobacco Use Types Packs/Day Years Used Date Smoking Tobacco: Former Cigarettes 1 30 Smokeless Tobacco: Never Comments: quit 40 years ago Alcohol Use Standard Drinks/Week Comments Yes 3 (1 standard drink = 0.6 oz pure alcoho l) drinks nonalchoholic beer Financial Resource Strain Answer Date Recorded How hard is it for you to pay for the very basics like Not h jennifer at all 08/05/2021 food, housing, medical care, and heating? Food Insecurity Answer Date Recorded Within the past 12 months, you worried that your food would Never true 08/05/2021 run out before you got money to buy more. Within the past 12 months, the food you bought just didn't N ever true 08/05/2021 last and you didn't have money to get more. Transportation Needs Answer Date Recorded In the past 12 months, has lack of transportation kept you f rom No 08/05/2021 medical appointments or from getting medications? In the past 12 months, has lack of transportation kept you f rom No 08/05/2021 meetings, work, or getting things needed for daily living? Housing Stability Answer Date Recorded In the last 12 months, was there a time when you were not ab le No 08/05/2021 to pay the mortgage or rent on time? In the last 12 months, how many places have you lived? 1 08/05/2021 In the last 12 months, was there a time when you did not hav e a No 08/05/[address] or slept in a fpc (including now)? Sex Assigned at Date Recorded Not on file documented as of this encounter Plan of Treatment Upcoming Encounters Date Type Specialty Care Team Description 04/13/2023 Hospital Encounter Gastroenterology Janneth Schwartz MD [facility] ER DR GASTROENTEROLOGY DEPT. [place], [place] [address] (Wo rk) Scheduled Procedures Name Priority Associated Diagnoses Date/Time COLONOSCOPY, DIAGNOSTIC 5 yr surv from 04/12/18 documented as of this encounter Visit Diagnoses Diagnosis Primary malignant neoplasm of prostate w ith high risk of recurrence due to Tai score of 8 to 10 and PSA greater than 20 Anxiety Anxiety state, unspecified documented in this encounter Care Teams Joiner Helper Relationship Specialty Start Date End Date Demarco Lopez MD PCP - General 04/20/[address] [place] [address] documented as of this encounter
--- OUTSIDE RECORDS SUMMARY | 2022-08-11 01:25 | XMS_ITS | Encounter Summary ---
:1940 Author Organization [facility] [place] [address] Care Team Providers Name Role Phone Demarco Lopez MD Primary Care Provider [phone] Encounter Details Date Type Department Care Team Description 11/17/2021 [facility] neoplasm of prostate [address] with high risk of [place], [place] RADIATION ONCOL OGY recurrence due to [id number] [place], [place] Tai score of 8 to [phone] 10 and PSA greater [phone] (Wo rk) than 20 Social History Tobacco Use Types Packs/Day Years [...] place to sleep or slept in a group home (including now)? Sex Assigned at Date Recorded Not on file documented as of this encounter Last Filed Vital Signs Vital Sign Reading Time Taken Comments Blood Pressure 106/72 11/17/2021 3:00 PM EST Pulse 79 11/17/2021 3:00 PM EST Temperature 36.5 ??C (97.7 ??F) 11/17/2021 3:00 PM EST Respiratory Rate 16 11/17/2021 3:00 PM EST Oxygen Saturation 98% 11/17/2021 3:00 PM EST Inhaled Oxygen Concentration - - Weight 80.4 kg (177 lb 3.2 oz) 11/17/2021 3:00 PM EST Height - - Body Mass Index 27.75 04/12/2018 2:36 PM EDT documented in this encounter Progress Notes Errol Brasher MD - 11/17/2021 3:00 PM EST Images from the original note were not included. 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 Roe Diagnosis High-Risk Prostate Cancer (PSA 35, cT1c, Gl 4+5) NEOADJUVANT / CONCURRENT THERAPY: LT-ADT (planned 32 months; from Dr Roe) Lupron #1: (7.5 mg) - Dr Roe - 06/27/21 Lupron #2: (22.5 mg) - Dr Roe - 07/28/21 Lupron #3: (22.5 mg) - Dr Roe - 10/31/21 INTENT OF THERAPY: Definitive (Curative) RADIATION TREATMENT DETAILS: Initial Treatment Site Mini-Pelvis (to avoid diverticular disease), Entire SV and Prostate Prescribed Dose 45 Gy in 25 fractions Boost Treatment Site 1 Proximal SV and Prostate Prescribe Dose 68.4Gy in 38 fractions Boost Treatment Site 2 Prostate Prescribed Dose 79.2 Gy in 44 fractions Current Dose: 46.8 Gy in 26 fractions INTERVAL HISTORY General No changes since last seen. +HF, tolerable. GI No diarrhea. 2-3 smaller/softer BMs daily. Nocturia 0-1 x/nt at baseline. Now going 3-4x/nt. Not emptying bladder well. Slight dysuria - Tylenol BID helps. Prostate Today's Scores 08/05/2021 Sexual Health Inventory for Men 1 (Severe ED) International Prostate Symptom Score 4 ( Mild LUTS) MEDICATIONS Medications 11/11/21 4756 Medication Sig Taking? acetaminophen (Tylenol) 325 mg Tablet Take by mouth every 4 hours as needed for Pain. Taking 1 tab, TID for dysuria Yes pantoprazole EC (Protonix) 40 mg Tablet, Delayed Release (E.C.) daily. Yes Psyllium Seed-Sucrose (0) Powder Take by mouth daily. Yes simvastatin (Zocor) 40 mg Tablet Take 40 mg by mouth daily. Yes cholecalciferol, Vitamin D3, 50 mcg (2,000 unit) Capsule Take by mouth daily. Yes calcium carbonate/vitamin D3 (CALTRATE WITH VITAMIN D3 ORAL) Take by mouth. Yes triamcinolone (KENALOG) 0.1 % Cream Apply to affected itchy rash areas twice daily until clear Yes Calcipotriene (DOVONEX) 0.005 % Crea 1 Appl(s), Top, Twice daily to affected areas until jyotsna Yes allopurinol (ZYLOPRIM) 300 mg tablet Take by mouth daily. Patient taking differently: Take by mouth daily. Yes colchicine (COLCRYS) 0.6 mg tablet Take by mouth daily. Patient taking differently: Take by mouth daily. Yes VITAMIN B COMPLEX (B COMPLEX VITAMINS ORAL) Yes ibuprofen (ADVIL;MOTRIN) 800 mg tablet Take by mouth. IMAGING I have personally reviewed this patient's interval portal imaging to confirm accurate positioning and alignment which matches the patient's original approved treatment planning images. EXAM: BP 106/72 Pulse 79 Temp 36.5 ??C (97.7 ??F) Resp 16 Wt 80.4 kg (177 lb 3.2 oz) SpO2 98% BMI 27.75 kg/m?? Constitutional: he appears well-developed and well-nourished. No distress. Abdomen: Soft, nt Performance Status: KPS Score ECOG Grade Definition X 90-100 0 Fully active, able to carry on all pre-disease performance without restriction 70-80 1 Restricted in physically strenuous activity but ambulatory and able to carry out work of a light or sedentary nature, e.g., light house work, office work 50-60 2 Ambulatory and capable of all selfcare but unable to carry out any work activities; up and about more than 50% of waking hours 30-40 3 Capable of only limited selfcare; confined to bed or chair more than 50% of waking hours 10-20 4 Completely disabled; cannot carry on any selfcare; totally confined to bed or chair IMPRESSION/PLAN Tolerance to radiotherapy/ADT: Tolerating as anticipated. Continue as planned. Tolerating Lupron well - getting this from Dr Roe. LUTS Rec Aleve BID QAC for urgency/frequency. Likely he will benefit from Flomax. Rx sent to pharmacy for 0.4mg qHS. Followup: Return to clinic next week for on treatment check. documented in this encounter Plan of Treatment Upcoming Encounters Date Type Specialty Care Team Description 04/13/2023 Hospital Encounter Gastroenterology Janneth Schwartz MD [facility] GA[facility] DEPT. [place], [place] [address] (Wo rk) Scheduled Procedures Name Priority Associated Diagnoses Date/Time COLONOSCOPY, DIAGNOSTIC 5 yr surv from 04/12/18 documented as of this encounter Visit Diagnoses Diagnosis Primary malignant neoplasm of prostate w ith high risk of recurrence due to Tai score of 8 to 10 and PSA greater than 20 documented in this encounter Care Teams Setter Automatic Spinning Lathe Relationship Specialty Start Date End Date Demarco Lopez MD PCP - General 04/20/[address] [place] [address] documented as of this encounter
--- OUTSIDE RECORDS SUMMARY | 2022-08-11 01:25 | XMS_ITS | Encounter Summary ---
:1940 Author Organization [facility] Address [address] [place] [address] Care Team Providers Name Role Phone Demarco Lopez MD Primary Care Provider [phone] Encounter Details Date Type Department Care Team Description 09/28/2021 Notes [facility] OFFICE OF CARE [address] [place] [phone] Social History Tobacco Use Types Packs/Day Years [...] place to sleep or slept in a custodial (including now)? Sex Assigned at Date Recorded Not on file documented as of this encounter Progress Notes Yudelka Andrade MSW - 09/28/2021 2:58 PM EST Reason for Referral: Brief assessment of social and emotional needs. Met with pt prior to his sim today to introduce myself and role of social media intern to assess/address barriers to getting to and through treatments; address support needs and connect with community services and resources as needed. Family/Social Supports: Pt identified his of 21 years (together 50 years) as his primary support. Living Situation/Daily Activities/Transportation: Pt manages his daily chores and activities. He does not expect any issues with transportation. 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 He has [employer] Managed Medicare for insurance. He does not have any financial concerns. Advance Directives: Pt has completed his advance directive and a copy is in his record. Utilization of Community Resources: None at this time. Adjustment to Illness/Mental Health Concerns: Pt indicated he is coping as best he can. He has good support from his . They have planned for their present and future needs. Identified Needs: Pt did not identify any specific needs. Referrals: None at this time. Social Work Interventions: Brief assessment Supportive Counseling Plan: Informed pt of WEIGHT TRAINING INSTRUCTOR availability and contact information. Will follow to assess/address psychosocial needs. YESSY Walker, HOSPITAL LIAISON, OSW-C Quality Assurance Assessor [facility] documented in this encounter Plan of Treatment Upcoming Encounters Date Type Specialty Care Team Description 04/13/2023 Hospital Encounter Gastroenterology Janneth Schwartz MD [facility] ER GASTROENTEROLOGY DEPT. [place], [place] [address] (Wo rk) Scheduled Procedures Name Priority Associated Diagnoses Date/Time COLONOSCOPY, DIAGNOSTIC 5 yr surv from 04/12/18 documented as of this encounter Visit Diagnoses Not on filedocumented in this encounter Care Teams Surface Boss Relationship Specialty Start Date End Date Demarco Lopez MD PCP - General 04/20/[address] [place] [address] documented as of this encounter
--- OUTSIDE RECORDS SUMMARY | 2022-08-11 01:25 | XMS_ITS | Encounter Summary ---
:1940 Author Organization [facility] [place] [address] Care Team Providers Name Role Phone Demarco Lopez MD Primary Care Provider [phone] Encounter Details Date Type Department Care Team Description 11/24/2021 [facility] neoplasm of prostate [address] with high risk of [place], [place] RADIATION ONCOL OGY recurrence due to [id number] [place], [place] Tai score of 8 to [phone] 10 and PSA greater [phone] (Wo rk) than 20 Social History Tobacco [...] Sign Reading Time Taken Comments Blood Pressure 129/60 11/24/2021 3:00 PM EST Pulse 73 11/24/2021 3:00 PM EST Temperature 36.7 ??C (98 ??F) 11/24/2021 3:00 PM EST Respiratory Rate 18 11/24/2021 3:00 PM EST Oxygen Saturation 98% 11/24/2021 3:00 PM EST Inhaled Oxygen Concentration - - Weight 79.2 kg (174 lb 9.6 oz) 11/24/2021 3:00 PM EST Height - - Body Mass Index 27.35 04/12/2018 2:36 PM EDT documented in this encounter Progress Notes Errol Brasher MD - 11/24/2021 3:15 PM EST Images from the original note were not included. RADIATION ONCOLOGY - Weekly On Treatment Visit Note 11/24/21 ERROL BRASHER MD Radiation Oncology [facility] [phone] (paging chief catalyst operator) Pager #[phone] PATIENT IDENTIFICATION Name Shailesh Trevino Date of [...] 79.2 Gy in 44 fractions Current Dose: 55.8 Gy in 31 fractions INTERVAL HISTORY General Overall feels fair. More tired. +HF, tolerable. GI No diarrhea. 1 BM daily. Nocturia 0-1 x/nt at baseline. Now going 2-3x/nt which is better since starting ibuprofen and flomax qhs. Some overnight overflow UI as well the past 2 nights. Dysuria resolved with ibuprofen 200mg qAC. Prostate Today's Scores 08/05/2021 Sexual Health Inventory for Men 1 (Severe ED) International Prostate Symptom Score 4 ( Mild LUTS) MEDICATIONS Medications 11/24/21 1526 Medication Sig Taking? tamsulosin (Flomax) 0.4 mg Capsule Take 1 capsule by mouth nightly. Yes pantoprazole EC (Protonix) 40 mg Tablet, [...] COMPLEX (B COMPLEX VITAMINS ORAL) Yes ibuprofen (Advil) 200 mg Tablet Take 200 mg by mouth every 6 hours as needed for Pain. 1 pill with each meal for urinary frequency acetaminophen (Tylenol) 325 mg Tablet Take by mouth every 4 hours as needed for Pain. Taking 1 tab, TID for dysuria IMAGING I have personally reviewed this patient's interval portal imaging to confirm accurate positioning and alignment which matches the patient's original approved treatment planning images. EXAM: BP 129/60 Pulse 73 Temp 36.7 ??C (98 ??F) Resp 18 Wt 79.2 kg (174 lb 9.6 oz) SpO2 98% BMI 27.35 kg/m?? Constitutional: he appears well-developed and well-nourished. [...] getting this from Dr Roe. LUTS Rec cont ibuprofen, Flomax qhs. Followup: Return to clinic next week for on treatment check. documented in this encounter Plan of Treatment Upcoming Encounters Date Type Specialty Care Team Description 04/13/2023 Hospital Encounter Gastroenterology Janneth Schwartz MD [facility] GASTROENTEROLOGY DEPT. [place], [place] [address] (Wo rk) Scheduled Procedures Name Priority Associated Diagnoses Date/Time COLONOSCOPY, DIAGNOSTIC 5 yr surv from 04/12/18 documented as of this encounter Visit Diagnoses Diagnosis Primary malignant neoplasm of prostate w ith high risk of recurrence due to Tai score of 8 to 10 and PSA greater than 20 documented in this encounter Care Teams Tongue Presser Relationship Specialty Start Date End Date Demarco Lopez MD PCP - General 04/20/[address] [place] [address] documented as of this encounter
--- OUTSIDE RECORDS SUMMARY | 2022-08-11 01:25 | XMS_ITS | Encounter Summary ---
:1940 Author Organization [facility] [place] [address] Care Team Providers Name Role Phone Demarco Lopez MD Primary Care Provider [phone] Encounter Details Date Type Department Care Team Description 02/02/2022 TH Visit Radiation Oncology [facility]rol S, Prim rafat malignant (TeleHealth) at [facility] neoplasm of prostate [address] [place] [address] DR with high risk of [place], [place] RADIATION ONCOL OGY recurrence due to [address] [place], [place] Tai score of 8 to [phone] 10 and PSA greater [phone] than 20 (Work) Social History Tobacco Use Types Packs/Day Years [...] place to sleep or slept in a [facility] (including now)? Sex Assigned at Date Recorded Not on file documented as of this encounter Progress Notes Errol Brasher MD - 02/02/2022 2:00 PM EDT Images from the original note were not included. RADIATION ONCOLOGY - End of Treatment Phone Visit Note 02/02/22 ERROL BRASHER MD Radiation Oncology [facility] [phone] (paging motion picture operator) Pager #[phone] PATIENT IDENTIFICATION Name Shailesh Trevino Date of 1940 PCP Demarco Lopez MD Referring MD (if different) Dr. Roe Diagnosis High-Risk Prostate Cancer (PSA 35, cT1c, Gl 4+5) NEOADJUVANT / CONCURRENT THERAPY: LT-ADT (planned 32 months; ongoing from Dr oRe) INTENT OF THERAPY: Definitive (Curative) RADIATION TREATMENT DETAILS: Initial Treatment Site Mini-Pelvis (to avoid diverticular disease), Entire SV and Prostate Prescribed Dose 45 Gy in 25 fractions Boost Treatment Site 1 Proximal SV and Prostate Prescribe Dose 68.4Gy in 38 fractions Boost Treatment Site 2 Prostate Prescribed Dose 79.2 Gy in 44 fractions Completion Date 12/14/21 INTERVAL HISTORY General Overall feels fair. Main concern are multiple recent implant failures / tooth fractures which have increased in frequency since starting Lupron. (He does have a history of dental issues that precede ADT/RT.) GI No diarrhea. 1 BM daily. Nocturia 0-1 x/nt per baseline, taking flomax 0.8 mg qhs. Prostate Today's Scores 08/05/2021 Sexual Health Inventory for Men 1 (Severe ED) International Prostate Symptom Score 4 ( Mild LUTS) MEDICATIONS Medications 12/08/21 9254 Medication Sig Taking? naproxen sodium (ANAPROX) 220 mg Tablet Take 220 mg by mouth 2 times daily (with meals). tamsulosin (Flomax) 0.4 mg Capsule Take 1 capsule by mouth nightly. Patient taking differently: Take 0.4 mg by mouth nightly. 1- 2 a night pantoprazole EC (Protonix) 40 mg Tablet, Delayed Release (E.C.) daily. Psyllium Seed-Sucrose (0) Powder Take by mouth daily. simvastatin (Zocor) 40 mg Tablet Take 40 mg by mouth daily. cholecalciferol, Vitamin D3, 50 mcg (2,000 unit) Capsule Take by mouth daily. calcium carbonate/vitamin D3 (CALTRATE WITH VITAMIN D3 ORAL) Take by mouth. allopurinol (ZYLOPRIM) 300 mg tablet Take by mouth daily. Patient taking differently: Take by mouth daily. VITAMIN B COMPLEX (B COMPLEX VITAMINS ORAL) IMAGING / LABS PSA 12/16/21 - 0.2 EXAM: No exam - phone visit Performance Status: KPS Score ECOG Grade Definition 90-100 0 Fully active, able to carry on all pre-disease performance without restriction XX 70-80 1 Restricted in physically strenuous activity [...] bed or chair IMPRESSION/PLAN Tolerance to radiotherapy/ADT: Recovered from acute effects of RT as anticipated. Discussed concern of periodontal disease. I did explain that there does seem to be some limited evidence suggesting advanced decay among men receiving ADT although stopping Lupron would not be recommended and the alternative therapy (casodex monotherapy) has its own side effects. I recommended that hecontinue Lupron and he plans to have another dose from Dr Roe which is scheduled for April. He will be meeting with a medical supervisor logging in the coming weeks as well to review alternative dental approaches. Biochemically CHELO with excellent response to date. LUTS Rec cont Flomax PRN, he can reduce to 1 pill nightly as tolerated. Followup: Return to clinic as needed - he has ongoing f/u w Dr Roe. We confirmed that he has access to our phone number and portal in case any further questions or concerns arise. documented in this encounter Plan of Treatment Upcoming Encounters Date Type Specialty Care Team Description 04/13/2023 Hospital Encounter Gastroenterology Janneth Schwartz MD [facility] DR GASTROENTEROLOGY DEPT. [place], [place] [address] (Wo rk) Scheduled Procedures Name Priority Associated Diagnoses Date/Time COLONOSCOPY, DIAGNOSTIC 5 yr surv from 04/12/18 documented as of this encounter Visit Diagnoses Diagnosis Primary malignant neoplasm of prostate w ith high risk of recurrence due to [place] score of 8 to 10 and PSA greater than 20 documented in this encounter Care Teams Director Diversity Relationship Specialty Start Date End Date Demarco Lopez MD PCP - General 04/20/[address] [place] [address] documented as of this encounter
--- OUTSIDE RECORDS SUMMARY | 2022-08-11 01:25 | XMS_ITS | Encounter Summary ---
:1940 Author Organization [facility] Address [address] [place] [address] Care Team Providers Name Role Phone Demarco Lopez MD Primary Care Provider [phone] Encounter Details Date Type Department Care Team Description 07/08/2021 [facility] [address] [phone] Social History Tobacco Use Types Packs/Day Years Used Date Smoking Tobacco: Former Smokeless Tobacco: Never Alcohol Use Standard Drinks/Week Comments Yes 10 (1 standard drink = 0.6 oz pure alcoh ol) Financial Resource Strain Answer Date Recorded How [...] place to sleep or slept in a intermediate (including now)? Sex Assigned at Date Recorded Not on file documented as of this encounter Miscellaneous Notes Telephone Encounter - Lauren Zafar - 07/08/2021 2:11 PM EDT Radiation Oncology New Patient Scheduling Note I called Shailesh to inform him that Dr. Roe has referred him to see Dr. Brasher for a radiation new patient consultation. I have confirmed his appointments on 08/05 will include a 30 minute visit at 930 to see our clinic nurse, followed by a [address] Brasher. I have requested that he arrive 15 minutes early in order to complete paperwork. I confirmed our address and answered all of his questions, and our contact information should any further questions or concerns arise. I also confirmed I would send an appt letter with additional instructions documented in this encounter Plan of Treatment Upcoming Encounters Date Type Specialty Care Team Description 04/13/2023 Hospital Encounter Gastroenterology Janneth Schwartz MD [facility] GASTROENTEROLOGY DEPT. [place], [place] [address] (Wo rk) Scheduled Procedures Name Priority Associated Diagnoses Date/Time COLONOSCOPY, DIAGNOSTIC 5 yr surv from 04/12/18 documented as of this encounter Visit Diagnoses Not on filedocumented in this encounter Care Teams Sap Business Objects Developer Relationship Specialty Start Date End Date Demarco Lopez MD PCP - General 04/20/[address] [place] [address] documented as of this encounter
--- OUTSIDE RECORDS SUMMARY | 2022-08-11 01:25 | XMS_ITS | Encounter Summary ---
:1940 Author Organization [place] [address] Care Team Providers Name Role Phone Demarco Lopez MD Primary Care Provider [phone] Reason for Visit Reason Comments Skin Check Encounter Details Date Type Department Care Team Description 09/29/2019 Office Visit Dermatology at [facility], Xerosis cutis; Lian GARCIA Inflamed seborrheic keratosis; [address] Seborrheic keratosis; Justin B [facility] [place], [place] [id number] [phone] Social History Tobacco Use Types Packs/Day Years [...] place to sleep or slept in a assisted (including now)? Sex Assigned at Date Recorded Not on file documented as of this encounter Progress Notes Doug Castanon MD - 09/29/2019 3:15 PM EST Problem: 1. Skin concerns 2. History of recurrent herpes labialis 3. History of psoriasiform dermatitis/psoriasis glans penis controlled Vaseline cream Shailesh follows up bothered by pruritus of his temples with and an itchy lesion on his leg. He has soresin his mouth. He had previously been given valacyclovir for herpes labialis but is run out of that. He was taking it as needed, a dose once every great while. He has been using triamcinolone cream 80 gtube for itchy areas on his hand on his face and on the glans penis. I think he misunderstood my recommendations as we were using Vaseline cream to the penis, and for short- term use only for psoriasis punch biopsy-proven around the rectum. That area is cleared. Physical examination reveals a pleasant 79-year-old gentleman who has a seborrheic keratosis on the right lateral thigh and numerous seborrheic keratoses on his back. Additionally he has some on his temples and forehead. He has not herpes labialis but healing aphthous ulcerations on the right buccal mu cosa, and on the inner labial mucosa. Examination of the face the chest the back hands arms and forearms is otherwise benign. 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 Encourage patient to go back to using Vaseline cream for his psoriasis the glans penis and also for the gluteal cleft area 2. Warned him about using corticosteroid cream given for one indication for others due to sterile atrophy side effects 3. Today no triamcinolone refill given Seborrheic keratoses 1. Symptomatic pruritic seborrheic keratosis of right lateral thigh treated with LN2 x2 today 2. Advised patient not to use triamcinolone to seborrheic keratosis on temples do not use on face long-term . 3. Discussed the option of LN2 removal for symptomatic [place] on face and back but he defers. Intermittent irritant dermatitis hands 1. Recommend using CeraVe cream for dry itchy skin of hands not always triamcinolone cream. Aphthous ulcerations mouth 1. Prescription given for fluocinonide 0.05% gel apply to affected areas on a twice daily basis until he healed and is continue. 15 g dispensed with 2 refills 2. Patient notes that accidentally biting the inside of his mouth seems to set this off. We discussed that this is a frequent precipitant of aphthous ulcerations 3. Advised patient to use a soft toothbrush. The patient denies any areas of rough edges on his teeth which could be traumatizing him. 4. [facility] [place] but if he needs refills and long-term use would utilize [facility] Cc: Demarco Lopez MD documented in this encounter Plan of Treatment Upcoming Encounters Date Type Specialty Care Team Description 04/13/2023 Hospital Encounter Gastroenterology Janneth Schwartz MD [facility] GASTROENTEROLOGY DEPT. [place], [place] [address] (Wo rk) Scheduled Procedures Name Priority Associated Diagnoses Date/Time COLONOSCOPY, DIAGNOSTIC 5 yr surv from 04/12/18 documented as of this encounter Visit Diagnoses Diagnosis Xerosis cutis Other specified disease of sebaceous gla nds Inflamed seborrheic keratosis Seborrheic keratosis Other seborrheic keratosis Pruritus Unspecified pruritic disorder documented in this encounter Care Teams Line Installer Repairer Relationship Specialty Start Date End Date Demarco Lopez MD PCP - General 04/20/[address] [place] [address] documented as of this encounter
--- OUTSIDE RECORDS SUMMARY | 2022-08-11 01:25 | XMS_ITS | Encounter Summary ---
:1940 Author Organization [place] [address] Care Team Providers Name Role Phone Demarco Lopez MD Primary Care Provider [phone] Reason for Visit Consultation (Routine) - Closed Specialty Diagnoses / Procedures Referred By Contact Refer red To Contact Radiation Oncology Diagnoses Primary malignant neoplasm of prostate with high risk of recurrence due to Tai score of 8 to 10 and PSA greater than 20 Errol Brasher MD [facility] Rad Onc Office Procedures Simulation for Radiation Therapy Planning [address] [place] [address] [place] [id number] Referral ID Status Reason Start Date Expiration Date Visits V isits Requested Authorized [id number] Closed Consult, 09/16/2021 03/31/2022 44 44 Test & Treat Encounter Details Date Type Department Care Team Description 09/28/2021 Ancillary Appointment Radiation Oncology at [facility] [place] MD [address] [place] [address] [place], [place] RADIATION ONCOL OGY [address] [place], [place] [phone] [id number] (Wo rk) Social History Tobacco Use Types Packs/Day Years [...] place to sleep or slept in a skilled nursing (including now)? Sex Assigned at Date Recorded Not on file documented as of this encounter Patient Instructions Patient InstructionsMalu Obrien RN - 09/28/2021 2:30 PM EST General instructions for Radiation therapy Radiation Oncology Team Radiation Oncologist -The doctor who will direct all aspects of your radiation treatments Nurse Practitioner - They assist your doctor in treating your side effects and with follow up appointments. Registered Nurse - They assist you in learning about you radiation treatments, , and things you can do to help manage the side effects. Clerical Assigner - They take the doctors radiation prescription and customize it into doses (or days of treatments) specific for you. Physicist - They make sure all the machines are operating correctly and double check calculations for your treatment. Radiation Technologists - They operate the machines which deliver your radiation. You see them dailyand they schedule your treatments. Simulation CT/ Planning Session Your first step after deciding to start radiation treatments is done on a special CAT scanner in theradiation department. The images obtained are used to plan your treatments. This may be scheduled the same day you meet your doctor or in a separate visit. This usually takes between 30 minutes to one hour. You may need an IV for contrast. If so our nurse will let you know that day along with any other special instructions. During this visit we may may Your skin with a tiny ???tattoos?? , take pictures or make special molds or masks to help us place you in the exact treatment position every day. After this session it takes up to two weeks for your plan to be developed and checked by your doctor, the dosimetrists and the physicist. Skin Care - Your nurse will provide you with the necessary creams and supplies as you need them during your treatments. Please make sure you keep the treatment area clean and dry. Be sure to notice if your clothing rubs or digs into the treatment area and try to wear clothes which are less abrasive, like cotton or loose fitting. Do not use harsh soaps, ointments, deodorants or tapes in the treatment area unless directed by your nurse or doctor. Keep the treatment area out of the sun during treatments. General precautions DO NOT USE heating pads, hot water bottles, hot poultices, heat lamps, heat in any form, or ice packs to the area of your body being treated. It is common to start feeling fatigue after a few weeks of being treated. You can help minimize thisby getting regular exercise or walking and getting plenty of rest. In general a well balanced diet is recommended. The sterilisation technician and nurse will inform you of any special diet requirements. Avoid shaving the treatment area with a razor. If you must shave use an electric razor. >>>>Please remember: Do not urinate before your radiation treatment. Try to have a comfortably full bladder if possible. This will help reduce side effects on the longrun. If you have any questions or concerns about these directions,please inform your nurse. >>> >Diarrhea management for patients receiving pelvic radiation: ?? For watery stools: Follow a low roughage, low fiber diet.Also avoid any foods/beverages with highacid content. For example:Tomatoes, citrus and vinegar. ?? Drink plenty of water;8-10 glasses/day ?? Take 1 imodium tablet after each loose watery stool. Do not take more than 8 tabs per day. Notify physician if diarrhea is not relieved after 8 tabs. You will have a weekly on-treatment visit every with Dr Brasher after your treatment. Nursing is available daily if needed. Contact numbers Section of Radiation Oncology Our normal business hours are: Sunday - Sunday 8 AM to [address] [facility] phone# [phone] [facility] If you have questions about your radiation appointments please ask to speak to one of our police department secretary staff. If you have questions for a nurse/doctor about radiation treatments, radiation side effects or you are not feeling well it is best to call early in the day. This allows a nurse to return your call by 5PM the same day. If you call after 4 PM, a nurse will return your call by 5 PM the following day unless it is emergent. If you experience any of the following you need to seek emergency care immediately by calling 911 1. Sudden and unexpected breathing difficulty without any exertion 2. Sudden onset of chest pain 3. Sudden onset of severe pain or uncontrolled pain 4. Sudden onset of severe weakness and/or unable to ambulate 5. Sudden new onset of a seizure 6. Fall resulting in injury A Radiation Oncology doctor is insolvency practitioner after our normal hours and on weekends. To call for urgent medical issues from radiation treatments that can not wait until normal business hours, please call for either location and have the monorail crane operator page the Radiation Oncologist insolvency practitioner. documented in this encounter Progress Notes Errol Brasher MD - 09/28/2021 2:30 PM EST Simulation Note for External Beam Radiation Treatment Planning [facility] Nicanor Trevino is a 81 y.o. year old male with high risk prostate cancer who was simulated for definitive radiotherapy to the pelvis and prostate today. No changes were made from the plan as documented in the original simulation order and instructions. After confirming informed consent, a retrograde urethrogram was performed using a small amount of contrast dye, and then a 2.5mm slice thickness CT scan of the patient's pelvis was obtained. This scan was performed to delineate both target volumes and organs/structures at risk. These images will be used to create a customized treatment plan employing multileaf collimators and beams-eye view to treat the target to prescription dose while maximally sparing organs at risk, with the overall goal of maximizing the likelihood of a favorable disease response while minimizing the likelihood of any short term side effects or care home complications of therapy. I anticipate his prescription dose will be 79.2 Gy to the prostate, delivered in daily 1.8 Gy fractions over the course of 9.5 weeks. Anticipate therapy to begin within the next 10 days. Furthermore, Ianticipate this patient will require IMRT or VMAT treatment planning and delivery as the critical treatment volume of interest (in this case, pelvic lymphatics, seminal vesicles, and prostate) is/are irregular and in close proximity to sensitive structures which must be protected (including his femurs, bladder, rectum, small bowel, and penile bulb). The patient tolerated this procedure well, and was provided instructions with regard to upcoming appointments. documented in this encounter Plan of Treatment Upcoming Encounters Date Type Specialty Care Team Description 04/13/2023 Hospital Encounter Gastroenterology Janneth Schwartz MD [facility] DR GASTROENTEROLOGY DEPT. [place], [place] [address] (Wo rk) Scheduled Orders Name Type Priority Associated Diagnoses Order S chedule Simulation for Procedures Routine Primary malignant Ordered: 08/17/2021 Radiation Therapy neoplasm of prostate Planning with high risk of recurrence due to [place] score of 8 to 10 and PSA greater than 20 Scheduled Procedures Name Priority Associated Diagnoses Date/Time COLONOSCOPY, DIAGNOSTIC 5 yr surv from 04/12/18 documented as of this encounter Visit Diagnoses Not on filedocumented in this encounter Care Teams Bricklayer Relationship Specialty Start Date End Date Demarco Lopez MD PCP - General 04/20/[address] [place] [address] documented as of this encounter
--- OUTSIDE RECORDS SUMMARY | 2022-08-11 01:25 | XMS_ITS | Clinical Summary ---
:1940 Author Organization [facility] [address] Care Team Providers Name Role Phone Demarco Lopez MD Primary Care Provider [phone] Allergies No known active allergies Medications Medication Sig Dispensed Refills Start Date End Date Status allopurinol (ZYLOPRIM) Take by mouth 0 2010 Active 300 mg tablet daily. VITAMIN B COMPLEX (B 0 2010 Active COMPLEX VITAMINS ORAL) calcium Take by mouth. 0 Activ e carbonate/vitamin D3 (CALTRATE WITH VITAMIN D3 ORAL) simvastatin (Zocor) 40 Take 40 mg by 0 10/22/2020 Active mg Tablet mouth daily. cholecalciferol, Take by mouth 0 Active Vitamin D3, 50 mcg daily. (2,000 unit) Capsule Psyllium Seed-Sucrose Take by mouth 0 Active (0) Powder daily. pantoprazole EC daily. 0 10/21/2021 Act mayra (Protonix) 40 mg Tablet, Delayed Release (E.C.) tamsulosin (Flomax) 0.4 Take 1 capsule by 30 tablet 11/17/19 22 Active mg Capsule mouth nightly. Additional Information Patient taking differently: 0.4 mg Oral NIGHTLY, 1- 2 a night, Reported on 12/08/2021 naproxen sodium (ANAPROX) 220 mg Take 220 mg by mouth 2 times daily 0 Active Tablet (with meals). Active Problems Problem Noted Date Primary malignant neoplasm of prostate with high risk of recurrence due to 08/03/2021 Tai score of 8 to 10 and PSA greater than 20 Cancer Staging: Clinical: Stage IIIC (cT 1c, cN0, cM0, PSA: 35, Grade Group: 5) - Signed by Errol Brasher MD on 08/03/2021 Anemia, iron deficiency 10/28/2015 AK (actinic keratosis) 04/20/2014 Other seborrheic keratosis 04/20/2014 Herpes labialis 07/26/2012 Psoriasis 07/26/2012 Inflamed seborrheic keratosis 07/26/2012 Social History Tobacco Use Types Packs/Day Years [...] Assigned at Date Recorded Not on file Last Filed Vital Signs Vital Sign Reading Time Taken Comments Blood Pressure 117/45 12/14/2021 12:39 PM EDT Pulse 63 12/14/2021 12:39 PM EDT Temperature 36.7 ??C (98 ??F) 12/14/2021 12:39 PM EDT Respiratory Rate 16 12/08/2021 2:00 PM EDT Oxygen Saturation 100% 12/14/2021 12:39 PM EDT Inhaled Oxygen Concentration - - Weight 81.4 kg (179 lb 6.4 oz) 12/08/2021 2:00 PM EDT Height 170.2 cm (5' 7) 04/12/2018 2:36 PM EDT Body Mass Index 28.1 04/12/2018 2:36 PM EDT Plan of Treatment Upcoming Encounters Date Type Specialty Care Team Description 04/13/2023 Hospital Encounter Gastroenterology Janneth Schwartz MD [facility] GA[facility]OLOGY DEPT. [place], [place] [address] (Wo rk) Scheduled Procedures Name Priority Associated Diagnoses Date/Time COLONOSCOPY, DIAGNOSTIC 5 yr surv from 04/12/18 Health Maintenance Due Date Last Done Comments Covid-19 Vaccine (#1) 03/10/1941 Hepatitis C Screening 1960 Tdap adult 1961 Tetanus vaccine 1961 Zoster vaccine (1 of 2) 1992 Pneumoccocal Vaccine: 65+ (1 - 2007 PCV) Colonoscopy 04/12/2021 04/12/2018, 04/12/2018, 10/01/2015, Additional history exists Influenza (Flu) vaccine (1 of - 05/25/2022 Influenza standard series) Insurance Payer Benefit Plan / Subscriber ID Effective Dates Phone Addre ss Type Group [employer] MANAGED A[employer] [id number] 2021-Amy [phone] [address] MEDICARE MANAGED t 6 [id number] [place] [address] Advance Directives Documents on File Type Date Recorded 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
--- OUTSIDE RECORDS SUMMARY | 2022-08-11 01:25 | XMS_ITS | Encounter Summary ---
:1940 Author Organization [facility] Address [address] [place] [address] Care Team Providers Name Role Phone Demarco Lopez MD Primary Care Provider [phone] Encounter Details Date Type Department Care Team Description 2021 Refill Radiation Oncology at [facility] Errol MD [address] [facility] RADIATION ONCOLOGY [place], [place] [address] [place], [place] [id number] (Wo rk) Social History Tobacco Use Types [...] place to sleep or slept in a snf (including now)? Sex Assigned at Date Recorded Not on file documented as of this encounter Plan of Treatment Upcoming Encounters Date Type Specialty Care Team Description 04/13/2023 Hospital Encounter Gastroenterology Janneth Schwartz MD [facility] GASTROENTEROLOGY DEPT. [place], [place] [address] (Wo rk) Scheduled Procedures Name Priority Associated Diagnoses Date/Time COLONOSCOPY, DIAGNOSTIC 5 yr surv from 04/12/18 documented as of this encounter Visit Diagnoses Not on filedocumented in this encounter Care Teams Embalmer/Funeral Director Relationship Specialty Start Date End Date Demarco Lopez MD PCP - General 04/20/[address] [place] [address] documented as of this encounter
--- OUTSIDE RECORDS SUMMARY | 2022-08-11 01:25 | XMS_ITS | Encounter Summary ---
:1940 Author Organization [facility] [place] [address] Care Team Providers Name Role Phone Demarco Lopez MD Primary Care Provider [phone] Encounter Details Date Type Department Care Team Description 10/28/2018 External Results Medical Records Provider, [place] [address] Social History Tobacco Use Types Packs/Day Years [...] place to sleep or slept in a senior living (including now)? Sex Assigned at Date Recorded Not on file documented as of this encounter Plan of Treatment Upcoming Encounters Date Type Specialty Care Team Description 04/13/2023 Hospital Encounter Gastroenterology Janneth Schwartz MD [facility] GASTROENTEROLOGY DEPT. [place], [place] [address] (Wo rk) Scheduled Procedures Name Priority Associated Diagnoses Date/Time COLONOSCOPY, DIAGNOSTIC 5 yr surv from 04/12/18 documented as of this encounter Procedures Procedure Name Priority Date/Time Associated Diagnosis Comme nts SURGICAL PATHOLOGY Routine 10/28/2018 Results f or this SCAN procedure are i n the results section . documented in this encounter Results Scan Doc: Surgical Pathology (10/28/2018) Narrative This result has an attachment that is no t available. Doug Castanon MD MEDIA MGR SCAN EXT ORDR/RSLT documented in this encounter Visit Diagnoses Not on filedocumented in this encounter Care Teams Toll Collector Relationship Specialty Start Date End Date Demarco Lopez MD PCP - General 04/20/[address] [place] [address] documented as of this encounter
--- OUTSIDE RECORDS SUMMARY | 2022-08-11 01:25 | XMS_ITS | Encounter Summary ---
:1940 Author Organization [facility] Address [address] [address] Care Team Providers Name Role Phone Demarco Lopez MD Primary Care Provider [phone] Encounter Details Date Type Department Care Team Description 12/14/2021 Notes Only Radiation Oncology at [facility] Errol MD [address] [facility] RADIATION ONCOLOGY [place], [place] [address] [place], [place] [id number] (Wo rk) Social History Tobacco Use Types [...] place to sleep or slept in a long term (including now)? Sex Assigned at Date Recorded Not on file documented as of this encounter Last Filed Vital Signs Vital Sign Reading Time Taken Comments Blood Pressure 117/45 12/14/2021 12:39 PM EDT Pulse 63 12/14/2021 12:39 PM EDT Temperature 36.7 ??C (98 ??F) 12/14/2021 12:39 PM EDT Respiratory Rate - - Oxygen Saturation 100% 12/14/2021 12:39 PM EDT Inhaled Oxygen Concentration - - Weight - - Height - - Body Mass Index - - documented in this encounter Progress Notes Errol Brasher MD - 12/14/2021 12:15 PM EDT Images from the original note were not included. RADIATION ONCOLOGY - Weekly On Treatment Visit Note 12/14/21 ERROL BRASHER MD Radiation Oncology [facility] [phone] (paging power plant operator) Pager #[phone] PATIENT IDENTIFICATION Name Shailesh Trevino Date of [...] 79.2 Gy in 44 fractions Current Dose: 79.2 Gy in 44 fractions INTERVAL HISTORY General Overall feels fair. More tired. +HF, tolerable. GI No diarrhea. 1 BM daily. Nocturia 0-1 x/nt at baseline. Now going 1-3x/nt taking aleve BID and flomax 0.8 mg qhs. Prostate Today's Scores 08/05/2021 Sexual Health Inventory for Men 1 (Severe ED) International Prostate Symptom Score 4 ( Mild LUTS) MEDICATIONS Medications 12/08/21 2216 Medication Sig Taking? naproxen sodium (ANAPROX) 220 [...] B COMPLEX (B COMPLEX VITAMINS ORAL) IMAGING I have personally reviewed this patient's interval portal imaging to confirm accurate positioning and alignment which matches the patient's original approved treatment planning images. RT hip xray - 12/09/21 - no evidence of fracture EXAM: BP 117/45 Pulse 63 Temp 36.7 ??C (98 ??F) SpO2 100% Constitutional: he appears well-developed and well-nourished. No [...] IMPRESSION/PLAN Tolerance to radiotherapy/ADT: Tolerating as anticipated. Completes today. Continue Lupron - getting this from Dr Roe. LUTS Rec cont Aleve BID, Flomax qhs. Followup: Return to clinic or phone visit in 4-6 weeks, or sooner as needed. documented in this encounter Plan of Treatment Upcoming Encounters Date Type Specialty Care Team Description 04/13/2023 Hospital Encounter Gastroenterology Janneth Schwartz MD [facility] GASTROENTEROLOGY DEPT. [place], [place] [address] (Wo rk) Scheduled Procedures Name Priority Associated Diagnoses Date/Time COLONOSCOPY, DIAGNOSTIC 5 yr surv from 04/12/18 documented as of this encounter Visit Diagnoses Not on filedocumented in this encounter Care Teams Bottle Capping Machine Operator Relationship Specialty Start Date End Date Demarco Lopez MD PCP - General 04/20/[address] [place] [address] documented as of this encounter
--- OUTSIDE RECORDS SUMMARY | 2022-08-11 01:25 | XMS_ITS | Encounter Summary ---
:1940 Author Organization [facility] [place] [address] Care Team Providers Name Role Phone Demarco Lopez MD Primary Care Provider [phone] Encounter Details Date Type Department Care Team Description 09/14/2021 Procedure visit Radiation Oncology Errol Brasher P rim[facility] malignant at [facility] neoplasm of prostate [address] [place] [address] DR with high risk of [place], [place] RADIATION ONCOL OGY recurrence due to [address] [place] [address] to 10 and PSA [phone] greater than 20 (Work) Social History Tobacco Use [...] place to sleep or slept in a long-term (including now)? Sex Assigned at Date Recorded Not on file documented as of this encounter Last Filed Vital Signs Vital Sign Reading Time Taken Comments Blood Pressure 151/63 09/14/2021 10:30 AM EST Pulse 61 09/14/2021 10:30 AM EST Temperature 36.4 ??C (97.6 ??F) 09/14/2021 8:07 AM EST Respiratory Rate 16 09/14/2021 10:30 AM EST Oxygen Saturation 100% 09/14/2021 10:30 AM EST Inhaled Oxygen Concentration - - Weight - - Height - - Body Mass Index - - documented in this encounter Patient Instructions Patient InstructionsSchMalu pires RN - 09/14/2021 8:30 AM EST After Your Gold Coil Implantation Procedure: ?? You may resume normal activity. ?? You may resume intercourse in one week. ?? You may resume normal activity ( no bike riding, horse back riding, snowmobiling, or ATV riding for a couple days to avoid discomfort) ?? You may take extra-strength or regular Tylenol for any discomfort. ?? Start dexamethasone as directed. 1 pill twice a day for 3 days, then 1 pill once a day for 3 days. Always take this medication with food. Avoid taking too late in the evening as it may causes insomnia. It may cause temporary elevation of blood sugar for diabetic patients. ?? You estela resume any NSAIDs 48 hours after the procedure. ?? Call us if you notice any unusual swelling ,difficulty with urination, pain or if you have any otherconcerns. ? Future Appointments: ? MRI : You will receive separate instructions specifically from the hospital ( [facility]) concerning your exact arrival time and what you need to do to prepare for this. Date:09/20 around 4:30 ? Your planning session (simulation) will be done at : [ ] [facility] at the Radiation Oncology Department section 2K [x ] [facility] [place], [place] ?? [Date: 09/28/20 ] [Time:arrive at 2:00 ] For proper visualization of prostate, it is required that you have a moderately full bladder. ?? This will require you to arrive 30 minutes before scheduled appointment and drink 2 glasses of water upon arrival. There are no restrictions with eating. How to reach us: [facility] [phone] For weekends and after hours: Call [facility] ask for the supervisor telephone information radiation oncologist ?? documented in this encounter Progress Notes Malu Obrien RN - 09/14/2021 8:30 AM EST Radiation Oncology Procedure Nursing Note Procedure: Prostate fiducial / Space Oar implant by Dr Errol Brasher Time of patient arrival to clinic:0800 See flowsheet for all vital signs and medication list updated info. Pre procedure questions: [yes] If Applicable: He confirms taking lorazepam 1mg po at (time): n/a, he decided not to take lorazepam. ] He comes to clinic accompanied by a mule driver. [yes ] reviewed allergies. Specifically confirmed that he is not allergic to contrast dye. ( for Space Oar w/contrast) [ yes ] if Applicable: He confirms holding blood thinner as directed. [ yes ] He confirms taking Levaquin( antibiotic) this morning at , Time: 0700 [ yes ] He administered fleets enema as directed; last night and this AM, with good results. [ yes ] He confirms eating breakfast or at least a small meal prior to procedure to avoid low blood sugar. Patient states all his questions are answered and he is ready to proceed. Procedure Time out/start time: See Time out flow sheet for details. Assessment:Patient tolerated procedure well with no complaint of pain. Time procedure ended: After procedure,he was assisted to stretcher and transported to stretcher/emergency equipment bay for further monitoring. Time: XXX assisted to recliner. He denied lightheadedness. Vitals stable. Time: xxx dressed self with supervision Gait steady. >> See AVS for printed instructions which were reviewed with him. He has the [facility] phone number and verbalized understanding to ask for the supervisor telephone information radiation oncologist if he needs to call after clinic hours. [ ] If applicable: He was reminded to not drive home due to Lorazepam. Chicken Cleaner: xxx Time of discharge: vital signs stable,and gait steady. Errol Brasher MD - 09/14/2021 8:30 AM EST Identification and Indications: Shailesh Trevino is a 81 y.o. gentleman with high-risk prostate cancer who presents today for theprocedures listed below: Procedures and Rationale: 1. Gold coil fiducial marker placement in prostate for daily image guided localization. 2. SpaceOAR hydrogel injection between rectal wall and prostate gland to reduce rectal irradiation during radiation therapy. SpaceOAR is an absorbable polyethylene glycol (PEG) hydrogel (SpaceOAR) thatwas placed into perirectal fat space, thereby pushing the rectum away from the prostate. Physician(s): Errol Brasher MD, MS Anesthesia: Local lidocaine (2%) Description of Procedure: Shailesh Trevino was placed in the lithotomy position with EMLA cream applied to the perineal skin. After a time-our was performed, a transrectal ultrasound probe was then placed within the rectum and stabilized using the placement positioning system. On initial inspection, it was clear that Shailesh has posterior disease and CANDELARIO into the [place]??? fascia. Given this finding, I decided NOT to proceed with a hydrogel implant. The perineum was prepped and draped. The SpaceOAR system was then prepared as per rivers and lakes boatman's recommendations, using sterile technique. Lidocaine was then used to anesthetize SQ tissues and a needle was placed trans- perineally into the right lobe of the prostate under ultrasound guidance with the graticule serving for stabilization andposition verification. The ultrasound was used to monitor the advancement of the needle, and lidocaine was locally applied as the needle was advanced towards the apex of the prostate. Once it was properly positioned, two 5mm gold coils ([employer]) were separately placed within the right lobe, and the needle was removed. This procedure was repeated within the left prostate. Complications: none Estimated Blood Loss: minimal Disposition: Shailesh Trevino tolerated the treatment well. He will return shortly for MRI imaging and for CT-based simulation and treatment planning, with radiation therapy to proceed thereafter. documented in this encounter Plan of Treatment Upcoming Encounters Date Type Specialty Care Team Description 04/13/2023 Hospital Encounter Gastroenterology Janneth Schwartz MD [facility] DR GASTROENTEROLOGY DEPT. [place], [place] [address] (Wo rk) Scheduled Procedures Name Priority Associated Diagnoses Date/Time COLONOSCOPY, DIAGNOSTIC 5 yr surv from 04/12/18 documented as of this encounter Visit Diagnoses Diagnosis Primary malignant neoplasm of prostate w ith high risk of recurrence due to [place] score of 8 to 10 and PSA greater than 20 documented in this encounter Care Teams Ui Lead Developer Relationship Specialty Start Date End Date Demarco Lopez MD PCP - General 04/20/[address] [place] [address] documented as of this encounter
--- OUTSIDE RECORDS SUMMARY | 2022-08-11 01:25 | XMS_ITS | Encounter Summary ---
:1940 Author Organization [facility] [place] [address] Care Team Providers Name Role Phone Demarco Lopez MD Primary Care Provider [phone] Encounter Details Date Type Department Care Team Description 11/03/2021 [facility] neoplasm of prostate [address] with high risk of [place], [place] RADIATION ONCOL OGY recurrence due to [address] [place], [place] Tai score of 8 to [phone] [address] 10 and PSA greater [phone] (Wo rk) than 20 Social History Tobacco [...] Sign Reading Time Taken Comments Blood Pressure 144/64 11/03/2021 2:00 PM EST Pulse 63 11/03/2021 2:00 PM EST Temperature 36.5 ??C (97.7 ??F) 11/03/2021 2:00 PM EST Respiratory Rate 16 11/03/2021 2:00 PM EST Oxygen Saturation 100% 11/03/2021 2:00 PM EST Inhaled Oxygen Concentration - - Weight 80.2 kg (176 lb 12.8 oz) 11/03/2021 2:00 PM EST Height - - Body Mass Index 27.69 04/12/2018 2:36 PM EDT documented in this encounter Progress Notes Errol Brasher MD - 11/03/2021 2:30 PM EST Images from the original note were not included. RADIATION ONCOLOGY - Weekly On Treatment Visit Note 11/03/21 ERROL BRASHER MD Radiation Oncology [facility] [phone] (paging roll forming machine operator) Pager #[phone] PATIENT IDENTIFICATION Name Shailesh Trevino Date of [...] 79.2 Gy in 44 fractions Current Dose: 28.8 Gy in 16 fractions INTERVAL HISTORY General No changes since last seen. He slipped and fell on ice earlier this week. +HF, tolerable. More hip weakness, which he finds distressing (makes skiing less enjoyable). GI No diarrhea. Nocturia 0-1 x/nt at baseline. Now going 2x/nt but getting up due to HFs. Slight increase in daytime frequency and urgency with weaker stream as well. He had some slight leakage today. Baseline IPSS history is listed below. Pain: Pain score today is 0/10. Prostate Today's Scores 08/05/2021 Sexual Health Inventory for Men 1 (Severe ED) International Prostate Symptom Score 4 ( Mild LUTS) MEDICATIONS Medications 11/03/21 1421 Medication Sig Taking? pantoprazole EC (Protonix) 40 mg Tablet, Delayed [...] original approved treatment planning images. EXAM: BP 144/64 Pulse 63 Temp 36.5 ??C (97.7 ??F) Resp 16 Wt 80.2 kg (176 lb 12.8 oz) SpO2 100% BMI 27.69 kg/m?? Constitutional: he appears well-developed and well-nourished. [...] getting this from Dr Roe. LUTS Rec Aleehsan [facility] for urgency/frequency Followup: Return to clinic next week for on treatment check. documented in this encounter Plan of Treatment Upcoming Encounters Date Type Specialty Care Team Description 04/13/2023 Hospital Encounter Gastroenterology Janneth Schwartz MD [facility] GASTROENTEROLOGY DEPT. [place], [place] [address] (Wo rk) Scheduled Procedures Name Priority Associated Diagnoses Date/Time COLONOSCOPY, DIAGNOSTIC 5 yr surv from 04/12/18 documented as of this encounter Visit Diagnoses Diagnosis Primary malignant neoplasm of prostate w ith high risk of recurrence due to [place] score of 8 to 10 and PSA greater than 20 documented in this encounter Care Teams Port Drier Relationship Specialty Start Date End Date Demarco Lopez MD PCP - General 04/20/15 [facility] [address] [place] [address] documented as of this encounter
--- OUTSIDE RECORDS SUMMARY | 2022-08-11 01:25 | XMS_ITS | Encounter Summary ---
:1940 Author Organization [place] [place] [address] Care Team Providers Name Role Phone Demarco Lopez MD Primary Care Provider [phone] Encounter Details Date Type Department Care Team Description 10/27/2021 [facility] neoplasm of prostate [address] with high risk of [place], [place] RADIATION ONCOL OGY recurrence due to [address] [place], [place] score of 8 to [phone] 10 and PSA greater [phone] (Wo rk) than 20 Social History Tobacco [...] place to sleep or slept in a halfway (including now)? Sex Assigned at Date Recorded Not on file documented as of this encounter Last Filed Vital Signs Vital Sign Reading Time Taken Comments Blood Pressure 126/52 10/27/2021 3:00 PM EST Pulse 70 10/27/2021 3:00 PM EST Temperature 36.6 ??C (97.9 ??F) 10/27/2021 3:00 PM EST Respiratory Rate 16 10/27/2021 3:00 PM EST Oxygen Saturation 100% 10/27/2021 3:00 PM EST Inhaled Oxygen Concentration - - Weight 78.8 kg (173 lb 12.8 oz) 10/27/2021 3:00 PM EST Height - - Body Mass Index 27.22 04/12/2018 2:36 PM EDT documented in this encounter Progress Notes Errol Brasher MD - 10/27/2021 4:15 PM EST Images from the original note were not included. RADIATION ONCOLOGY - Weekly On Treatment Visit Note 10/27/21 ERROL BRASHER MD Radiation Oncology [facility] [phone] (paging muffle operator) Pager #[phone] PATIENT IDENTIFICATION Name Shailesh Trevino Date of 1940 PCP Demarco Lopez MD Referring MD (if different) Dr. Roe Diagnosis High-Risk Prostate Cancer (PSA 35, cT1c, Gl 4+5) NEOADJUVANT / CONCURRENT THERAPY: LT-ADT (planned 32 months; from Dr Roe) Lupron #1: (7.5 mg) - Dr Roe - 06/27/21 Lupron #1: (22.5 mg) - Dr Roe - 07/28/21 INTENT OF THERAPY: Definitive (Curative) RADIATION TREATMENT DETAILS: Initial Treatment Site Mini-Pelvis (to avoid diverticular disease), Entire SV and Prostate Prescribed Dose 45 Gy in 25 fractions Boost Treatment Site 1 Proximal SV and Prostate Prescribe Dose 68.4Gy in 38 fractions Boost Treatment Site 2 Prostate Prescribed Dose 79.2 Gy in 44 fractions Current Dose: 19.8 Gy in 11 fractions INTERVAL HISTORY General No changes since last seen. +HF, tolerable GI No diarrhea. Nocturia 0-1 x/nt at baseline. Slight increase in daytime frequency. Baseline IPSS history is listed below. Pain: Pain score today is 0/10. Prostate Today's Scores 08/05/2021 Sexual Health Inventory for Men 1 (Severe ED) International Prostate Symptom Score 4 ( Mild LUTS) MEDICATIONS Medications 10/27/21 1604 Medication Sig Taking? pantoprazole EC (Protonix) 40 mg Tablet, Delayed Release (E.C.) daily. Yes Psyllium Seed-Sucrose (0) Powder Take by mouth daily. Yes simvastatin (Zocor) 40 mg Tablet Take 40 mg by mouth daily. Yes cholecalciferol, Vitamin D3, (cholecalciferol, Vitamin D3,) 50 mcg (2,000 unit) Capsule Take by [...] ORAL) Yes ibuprofen (ADVIL;MOTRIN) 800 mg tablet IMAGING I have personally reviewed this patient's interval portal imaging to confirm accurate positioning and alignment which matches the patient's original approved treatment planning images. EXAM: BP 126/52 Pulse 70 Temp 36.6 ??C (97.9 ??F) Resp 16 Wt 78.8 kg (173 lb 12.8 oz) SpO2 100% BMI 27.22 kg/m?? Constitutional: he appears well-developed and well-nourished. No distress. Performance Status: KPS Score ECOG Grade Definition [...] radiotherapy/ADT: Tolerating as anticipated. Continue as planned. Louie Roe was scheduled for 10/26/21 - will track down records. Followup: Return to clinic next week for on treatment check. documented in this encounter Plan of Treatment Upcoming Encounters Date Type Specialty Care Team Description 04/13/2023 Hospital Encounter Gastroenterology Janneth Schwartz MD [facility] ER DR GASTROENTEROLOGY DEPT. [place], [place] [address] (Wo rk) Scheduled Procedures Name Priority Associated Diagnoses Date/Time COLONOSCOPY, DIAGNOSTIC 5 yr surv from 04/12/18 documented as of this encounter Visit Diagnoses Diagnosis Primary malignant neoplasm of prostate w ith high risk of recurrence due to [place] score of 8 to 10 and PSA greater than 20 documented in this encounter Care Teams Registered Diet Technician Relationship Specialty Start Date End Date Demarco Lopez MD PCP - General 04/20/[address] [place] [address] documented as of this encounter
--- OUTSIDE RECORDS SUMMARY | 2022-08-11 01:25 | XMS_ITS | Encounter Summary ---
:1940 Author Organization [facility] Address [facility] [address] [place] [address] Care Team Providers Name Role Phone Demarco Lopez MD Primary Care Provider [phone] Encounter Details Date Type Department Care Team Description 09/15/2021 [facility] [address] [phone] Social History Tobacco Use [...] place to sleep or slept in a residential (including now)? Sex Assigned at Date Recorded Not on file documented as of this encounter Miscellaneous Notes Telephone Encounter - Malu Obrien RN - 09/15/2021 2:18 PM EST Radiation Oncology Nurse Telephone Note [facility] [place] [place] Radiation Oncology Post-Procedure Phone Note Name: Shailesh Johnston#: [id number] : 1940 Date/Time of Call: 09/15/21 Procedure: Placement of Gold Coil Fiducials Date of Procedure: 09/14/21 Spoke on the phone to: Patient If not patient, whom? x Message left on answering machine Call attempted - unable to contact patient General condition as stated by the patient or designee: Excellent Good Fair Poor Other x He went skiing this morning. ??? The patient's pain is controlled:Patient Denies pain YES NO x Comments/intervention: ??? Patient denies tenderness / swelling in perineum/scrotum: YES NO x Coments/intervention: ??? Patient deneis changes in urinary symptoms: YES NO Comments/intervention: ??? Patient has questions re medications: YES NO x Comments/interventions: ??? Patient knows how to contact us in case of emergency: YES NO x Comments/interventions: Section Radiation Oncology [facility] documented in this encounter Plan of Treatment Upcoming Encounters Date Type Specialty Care Team Description 04/13/2023 Hospital Encounter Gastroenterology Janneth Schwartz MD [facility] GASTROENTEROLOGY DEPT. [place], [place] [address] (Wo rk) Scheduled Procedures Name Priority Associated Diagnoses Date/Time COLONOSCOPY, DIAGNOSTIC 5 yr surv from 04/12/18 documented as of this encounter Visit Diagnoses Not on filedocumented in this encounter Care Teams Oral And Maxillofacial Surgery Relationship Specialty Start Date End Date Demarco Lopez MD PCP - General 04/20/[address] [place] [address] documented as of this encounter
--- OUTSIDE RECORDS SUMMARY | 2022-08-11 01:25 | XMS_ITS | Encounter Summary ---
:1940 Author Organization [facility] Address [facility] [address] [place] [address] Care Team Providers Name Role Phone Demarco Lopez MD Primary Care Provider [phone] Encounter Details Date Type Department Care Team Description 09/07/2021 Telephone Radiation Oncology a t [facility] Rad Nurse, [address] [phone] Social History Tobacco Use [...] place to sleep or slept in a usp (including now)? Sex Assigned at Date Recorded Not on file documented as of this encounter Plan of Treatment Upcoming Encounters Date Type Specialty Care Team Description 04/13/2023 Hospital Encounter Gastroenterology Janneth Schwartz MD [facility] GASTROENTEROLOGY DEPT. [place], [place] [address] (Wo rk) Scheduled Procedures Name Priority Associated Diagnoses Date/Time COLONOSCOPY, DIAGNOSTIC 5 yr surv from 04/12/18 documented as of this encounter Visit Diagnoses Not on filedocumented in this encounter Care Teams Scratch Brusher Relationship Specialty Start Date End Date Demarco Lopez MD PCP - General 04/20/[address] [place] [address] documented as of this encounter
--- OUTSIDE RECORDS SUMMARY | 2022-08-11 01:25 | XMS_ITS | Encounter Summary ---
:1940 Author Organization [facility] [address] Care Team Providers Name Role Phone Demarco Lopez MD Primary Care Provider [phone] Encounter Details Date Type Department Care Team Description 12/01/2021 [facility] neoplasm of prostate [address] with high risk of [place], [place] RADIATION ONCOL OGY [place] [id number] [place], [place] score of 8 to [phone] 10 and PSA greater [phone] (Wo rk) than 20 Social History Tobacco [...] Sign Reading Time Taken Comments Blood Pressure 123/54 12/01/2021 3:00 PM EST Pulse 71 12/01/2021 3:00 PM EST Temperature 36.3 ??C (97.3 ??F) 12/01/2021 3:00 PM EST Respiratory Rate 20 12/01/2021 3:00 PM EST Oxygen Saturation 98% 12/01/2021 3:00 PM EST Inhaled Oxygen Concentration - - Weight 82.4 kg (181 lb 9.6 oz) 12/01/2021 3:00 PM EST Height - - Body Mass Index 28.44 04/12/2018 2:36 PM EDT documented in this encounter Progress Notes Errol Brasher MD - 12/01/2021 3:15 PM EST Images from the original note were not included. RADIATION ONCOLOGY - Weekly On Treatment Visit Note 12/01/21 ERROL BRASHER MD Radiation Oncology [facility] [phone] (paging paper gluing operator) Pager #[phone] PATIENT IDENTIFICATION Name Shailesh Trevino Date of [...] 79.2 Gy in 44 fractions Current Dose: 64.8 Gy in 36 fractions INTERVAL HISTORY General Overall feels fair. More tired. +HF, tolerable. He slipped/fell on ice again this week with significant pain on the right hip. GI No diarrhea. 1 BM daily. Nocturia 0-1 x/nt at baseline. Now going 3x/nt taking aleve and flomax 0.4mg qhs. Dysuria resolved with ibuprofen 200mg qAC. Prostate Today's Scores 08/05/2021 Sexual Health Inventory for Men 1 (Severe ED) International Prostate Symptom Score 4 ( Mild LUTS) MEDICATIONS Medications 12/01/21 1528 Medication Sig Taking? naproxen sodium (ANAPROX) 220 mg Tablet Take 220 mg by mouth 2 times daily (with meals). Yes tamsulosin (Flomax) 0.4 mg Capsule Take 1 [...] VITAMIN D3 ORAL) Take by mouth. Yes allopurinol (ZYLOPRIM) 300 mg tablet Take by mouth daily. Patient taking differently: Take by mouth daily. Yes VITAMIN B COMPLEX (B COMPLEX VITAMINS ORAL) Yes IMAGING I have personally reviewed this patient's interval portal imaging to confirm accurate positioning and alignment which matches the patient's original approved treatment planning images. EXAM: BP 123/54 Pulse 71 Temp 36.3 ??C (97.3 ??F) Resp 20 Wt 82.4 kg (181 lb 9.6 oz) SpO2 98% BMI 28.44 kg/m?? Constitutional: he appears well-developed and well-nourished. [...] radiotherapy/ADT: Tolerating as anticipated. Continue as planned. Continue Lupron - getting this from Dr Roe. LUTS Rec cont Aleve BID, Flomax qhs. Discussed that he can double flomax dose prn. Followup: Return to clinic next week for on treatment check. documented in this encounter Plan of Treatment Upcoming Encounters Date Type Specialty Care Team Description 04/13/2023 Hospital Encounter Gastroenterology Janneth Schwartz MD [facility] GASTROENTEROLOGY DEPT. [place], [place] [address] (Wo rk) Scheduled Procedures Name Priority Associated Diagnoses Date/Time COLONOSCOPY, DIAGNOSTIC 5 yr surv from 04/12/18 documented as of this encounter Visit Diagnoses Diagnosis Primary malignant neoplasm of prostate w ith high risk of recurrence due to [place] score of 8 to 10 and PSA greater than 20 documented in this encounter Care Teams Ethologist Relationship Specialty Start Date End Date Demarco Lopez MD PCP - General 04/20/[address] [place] [address] documented as of this encounter
--- OUTSIDE RECORDS SUMMARY | 2022-08-11 01:25 | XMS_ITS | Encounter Summary ---
:1940 Author Organization [facility] Address [facility] [place] [address] Care Team Providers Name Role Phone Demarco Lopez MD Primary Care Provider [phone] Encounter Details Date Type Department Care Team Description 12/15/2021 Notes Only Radiation Oncology at [facility] Errol MD [address] [facility] RADIATION ONCOLOGY [place], [place] [phone] [place], [place] [id number] (Wo rk) Social History Tobacco Use Types [...] place to sleep or slept in a correction (including now)? Sex Assigned at Date Recorded Not on file documented as of this encounter Progress Notes Errol Brasher MD - 12/15/2021 3:26 PM EDT Images from the original note were not included. RADIATION ONCOLOGY - Treatment Completion Summary Errol Brasher MD, MS Radiation Oncology [facility] [phone] (paging loading unit operator) Pager #[phone] PATIENT IDENTIFICATION ?? Name Shailesh Trevino Date of 1940 ? PCP Demarco Lopez MD Referring MD (if different) Dr. Roe ? Diagnosis High-Risk Prostate Cancer (PSA 35, cT1c, Gl 4+5) ? NEOADJUVANT / CONCURRENT THERAPY: LT-ADT (planned 32 months; from Dr Roe) ?? INTENT OF THERAPY: Definitive (Curative) ?? RADIATION TREATMENT DETAILS: ?? Initial Treatment Site Mini-Pelvis (to avoid diverticular disease irradiation), Entire SV and Prostate Prescribed Dose 45 Gy in 25 fractions ? Boost Treatment Site 1 Proximal SV and Prostate Prescribe Dose 68.4Gy in 38 fractions ? Boost Treatment Site 2 Prostate Prescribed Dose 79.2 Gy in 44 fractions ? Start Date End Date 10/13/21 12/14/21 ?SPECIAL TECHNICAL CONSIDERATIONS: The patient was simulated on a CT simulator. Customized michael were designed to encompass the targetvolume and identify organs at risk and with the intent of minimizing normal tissue toxicity. TREATMENT TOLERANCE: With regard to side effects noted during radiotherapy, the patient tolerated treatment extremely well with no significant acute (Grade 3 or above) toxicity. TREATMENT RESPONSE: The patient's response to treatment was undetermined, as he was largely asymptomatic at the time of presentation. Future assessment will be determined via serial PSA measurement. FOLLOWUP: Follow-up visit with Radiation Oncology in [facility] will be scheduled in 4-6 weeks for routine post-procedural symptom check; he has received instructions to call this office or seek thehelp of the local emergency room if any further problems should arise prior to followup. documented in this encounter Plan of Treatment Upcoming Encounters Date Type Specialty Care Team Description 04/13/2023 Hospital Encounter Gastroenterology Janneth Schwartz MD [facility] DR GASTROENTEROLOGY DEPT. [place], [place] [address] (Wo rk) Scheduled Procedures Name Priority Associated Diagnoses Date/Time COLONOSCOPY, DIAGNOSTIC 5 yr surv from 04/12/18 documented as of this encounter Visit Diagnoses Not on filedocumented in this encounter Care Teams Landscape Management Technician Relationship Specialty Start Date End Date Demarco Lopez MD PCP - General 04/20/[address] [facility] [address] [place] [address] documented as of this encounter
--- OUTSIDE RECORDS SUMMARY | 2022-08-11 01:25 | XMS_ITS | Encounter Summary ---
:1940 Author Organization [facility] Address [address] [place] [address] Care Team Providers Name Role Phone Demarco Lopez MD Primary Care Provider [phone] Encounter Details Date Type Department Care Team Description 08/22/2021 [facility] [address] [phone] Social History Tobacco Use [...] place to sleep or slept in a half-way (including now)? Sex Assigned at Date Recorded Not on file documented as of this encounter Miscellaneous Notes Telephone Encounter - Lindsay Carson RN - 08/22/2021 4:34 PM EST Telephone call to patient to relay information from Dr. Brasher regarding patient's question about casodex. Patient responded Good, I have enough pills to take. Telephone Encounter - Lindsay Carson RN - 08/22/2021 4:26 PM EST ----- Message from Errol Brasher MD sent at 08/22/2021 4:10 PM EST ----- Regarding: RE: Patient Questions Angel Toribio - given his known gastric ulcer disease I would not recommend casodex for him. That wording is 'stock phrasing' common to all my AVS printouts and usually I erase that. In his case it looks like I forgot to do that. Please let him know that there are no studies comparing casodex + lupron against lupron by itself, and in patients where there is even a slight risk of casodex causing harm I often omit it. Thanks Errol ----- Message ----- From: Malu Obrien RN Sent: 08/19/2021 5:11 PM EST To: Errol Brasher MD, [facility] Rad Onc Nurse Subject: FW: Patient Questions Dr Brasher , He called because when he read the AVS you gave him. It states the Csodex, which he doesn't have a prescription for. If you want him to have it he has a mail order [facility] pharmacy or [facility] in [place] if it needs to be started sooner. Malu ----- Message ----- From: Fabiola Pedro Sent: 08/19/2021 2:34 PM EST To: Laura Rad Onc Nurse Subject: Patient Questions He has questions on casodex and his treatment. 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 Thanks Karin! documented in this encounter Plan of Treatment Upcoming Encounters Date Type Specialty Care Team Description 04/13/2023 Hospital Encounter Gastroenterology Janneth Schwartz MD [facility] DR GASTROENTEROLOGY DEPT. [place], [place] [address] (Wo rk) Scheduled Procedures Name Priority Associated Diagnoses Date/Time COLONOSCOPY, DIAGNOSTIC 5 yr surv from 04/12/18 documented as of this encounter Visit Diagnoses Not on filedocumented in this encounter Care Teams Java Lead Developer Relationship Specialty Start Date End Date Demarco Lopez MD PCP - General 04/20/[address] [place] [address] documented as of this encounter
--- OUTSIDE RECORDS SUMMARY | 2022-08-11 01:25 | XMS_ITS | Encounter Summary ---
:1940 Author Organization [facility] [address] Care Team Providers Name Role Phone Demarco Lopez MD Primary Care Provider [phone] Reason for Visit Reason Comments Suture / Staple Removal Encounter Details Date Type Department Care Team Description 11/04/2018 Office Visit Dermatology at [facility], Xerosis cutis; Lian GARCIA Visit for suture removal [address] [facility] Justin B DERMATOLOGY [place], [place] [id number] [phone] Social History Tobacco Use Types Packs/Day Years [...] place to sleep or slept in a mcc (including now)? Sex Assigned at Date Recorded Not on file documented as of this encounter Progress Notes Doug Castanon MD - 11/04/2018 4:45 PM EST Problem: Follow-up for suture removal biopsy results Shailesh follows up and the biopsy came back consistent with psoriasis. Physical examination shows interval improvement of the perineal erythema and scaling. This despite the fact that he misunderstood my instructions at the time of a phone call with biopsy results, on October 29, and is not been using triamcinolone to the affected area. Assessment plan: Inverse psoriasis perineum 1. Recommend the patient use once daily triamcinolone cream to this area he still has some leftover 2. Sutures removed 3. Return to clinic in another year for repeat check Pruritus, much improved 1. Patient doing better showering only every other day, using Ivory soap, and using CeraVe cream 2. Patient may continue triamcinolone sparingly to areas of itching which are many fewer today now CC: Demarco Lopez MD documented in this encounter Plan of Treatment Upcoming Encounters Date Type Specialty Care Team Description 04/13/2023 Hospital Encounter Gastroenterology Janneth Schwartz MD [facility] GASTROENTEROLOGY DEPT. [place], [place] [address] (Wo rk) Scheduled Procedures Name Priority Associated Diagnoses Date/Time COLONOSCOPY, DIAGNOSTIC 5 yr surv from 04/12/18 documented as of this encounter Visit Diagnoses Diagnosis Xerosis cutis Other specified disease of sebaceous gla nds Visit for suture removal Encounter for removal of sutures documented in this encounter Care Teams Office Technician Relationship Specialty Start Date End Date Demarco Lopez MD PCP - General 04/20/[address] [place] [address] documented as of this encounter
--- OUTSIDE RECORDS SUMMARY | 2022-08-11 01:25 | XMS_ITS | Encounter Summary ---
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 due to Tai score of 8 to 10 and PSA greater than 20 Errol Brasher MD [facility] Rad Mri Procedures MRI Pelvis wo (Prostate) [address] [place] [address] [place] [address] [place], [place] [address] Referral ID Status Reason Start Date Expiration Date Visits V isits Requested Authorized [id number] Closed Specialty 08/17/2021 02/14/2023 1 1 Service Requested Consultation (Routine) - Closed Specialty Diagnoses / Procedures Referred By Contact Refer red To Contact Radiation Oncology Diagnoses Primary malignant neoplasm of prostate with high risk of recurrence due to Tai score of 8 to 10 and PSA greater than 20 Errol Brasher MD [facility] Procedures Simulation for Radiation Therapy Planning [address] [place] [address] [place] [address] Referral ID Status Reason Start Date Expiration Date Visits V isits Requested Authorized [id number] Closed Consult, 09/16/2021 03/31/2022 44 44 Test & Treat Encounter Details Date Type Department Care Team Description 08/17/2021 Orders Only Radiation Oncology at [place], [place] [facility]ata rimary malignant [facility] neoplasm of prostate [address] with high risk of [place], [place] RADIATION ONCOL [place] [phone] [place], [place] score of 8 to [phone] [address] and PSA greater [phone] (Wo rk) than 20 Social History Tobacco [...] Encounter Gastroenterology Janneth Schwartz MD [facility] GASTROENTEROLOGY DEPT. [place], [place] [address] (Wo rk) Scheduled Orders Name [...] from 04/12/18 documented as of this encounter Results MRI Pelvis wo (Prostate) (09/20/2021 5:01 PM EST) Anatomical Region Laterality Modality Pelvis Magnetic Resonance Specimen (Source) Anatomical Location Collection Method / Collectio n Time Received Time / Laterality Volume Impressions 09/21/2021 10:25 AM EST MRI for radiation treatment planning pur poses Thank you for letting us participate in the care of this patient. ??If you are a health care provider and have any questi ons regarding this report, please contact the number below. ??For patients who have questions please contact the health healthcare administrative assistant that requested your imaging first. ? Narrative 09/21/2021 10:25 AM EST EXAMINATION: MRI PELVIS WO (PROSTATE) CLINICAL HISTORY: prostate cancer s/p AD T, fiducial marker and hydrogel placement. MRI for radiation planning, p lease use volumetric study sequence if possible (e.g. PARISI or the like) TECHNIQUE: MRI of the prostate without contrast. COMPARISON: None FINDINGS: The prostate measures 3.2 x 4.8 x 3.9 cm for calculated volume of 31.2 cc. Prostate fiducial markers are in place b ilaterally. No pelvic lymphadenopathy. No osseous metastases identified. Unrema rkable appearance of the urinary bladder and the rectum. Diverticulosis coli. Procedure Note Bandar Lewis MD - 09/21/2021Format ting of this note might be different from the original. EXAMINATION: MRI PELVIS WO (PROSTATE) CLINICAL HISTORY: prostate cancer s/p AD T, fiducial marker and hydrogel placement. MRI for radiation planning, p lease use volumetric study sequence if possible (e.g. PARISI or the like) TECHNIQUE: MRI of the prostate without contrast. COMPARISON: None FINDINGS: The prostate measures 3.2 x 4.8 x 3.9 cm for calculated volume of 31.2 cc. Prostate fiducial markers are in place b ilaterally. No pelvic lymphadenopathy. No osseous metastases identified. Unrema rkable appearance of the urinary bladder and the rectum. Diverticulosis coli. IMPRESSION MRI for radiation treatment planning pur poses Thank you for letting us participate in the care of this patient. If you are a health care provider and have any questi ons regarding this report, please contact the number below. For patients w ho have questions please contact the health healthcare administrative assistant that requested your imaging first. Electronically signed by: Bandar oro MD, [facility] ([phone]), at 09/21/2021 10:25 AM Errol Brasher MD IMG MRI ORDERABLES documented in this encounter Visit Diagnoses Diagnosis Primary malignant neoplasm of prostate w ith high risk of recurrence due to [place] score of 8 to 10 and PSA greater than 20 Primary malignant neoplasm of prostate w ith high risk of recurrence due to [place] score of 8 to 10 and PSA greater than 20 documented in this encounter Care Teams Bell Maker Relationship Specialty Start Date End Date Demarco Lopez MD PCP - General 04/20/[address] [place] [address] documented as of this encounter
--- OUTSIDE RECORDS SUMMARY | 2022-08-11 01:25 | XMS_ITS | Encounter Summary ---
:1940 Author Organization [facility] [place] [address] Care Team Providers Name Role Phone Demarco Lopez MD Primary Care Provider [phone] Reason for Visit Consultation (Routine) - Closed Specialty Diagnoses / Procedures Referred By Contact Refer red To Contact Radiation Oncology Diagnoses Malignant neoplasm of prostate MALIGNANT NEOPLASM OF PROSTATE Allen Roe MD Kapadia, Nirav S, MD Procedures TREATMENT OPTIONS [address] [place] [address] [place], [place] RADIATION ON COLOGY [address] [place] [address] Phone: Fax: Referral ID Status Reason Start Date Expiration Date Visits Requ ested Visits Authorized [id number] Closed 06/28/2021 06/28/2022 1 1 Encounter Details Date Type Department Care Team Description 08/05/2021 Office Visit Radiation Oncology at [facility] rimary malignant [facility] neoplasm of prostate [address] [place] [address] with high risk of [place], [place] RADIATION ONCOL OGY recurrence due to [id number] [place], [place] Tai score of 8 to [phone] [id number] 10 and PSA greater [phone] (Wo rk) than 20 Social History Tobacco [...] Sign Reading Time Taken Comments Blood Pressure 134/58 08/05/2021 10:07 AM EST Pulse 58 08/05/2021 10:07 AM EST Temperature - - Respiratory Rate 18 08/05/2021 10:07 AM EST Oxygen Saturation 99% 08/05/2021 10:07 AM EST Inhaled Oxygen Concentration - - Weight 76.2 kg (168 lb) 08/05/2021 10:07 AM EST with sh oes Height - - Body Mass Index 26.31 04/12/2018 2:36 PM EDT documented in this encounter Patient Instructions Patient InstructionsErrol Brasher MD - 08/05/2021 10:00 AM EST Dear Mr. Trevino, Dr. Roe asked for me to see you to discuss how radiation therapy can be used to treat your prostate cancer and this note is to recap our discussion regarding use of radiation treatments. As your radiation oncologist, I work closely with your other healthcare providers and most importantly, with you to make sure that the treatments we discuss and offer keep your personal preferences and goals in mind. We discussed the following next steps as part of your cancer evaluation and/or treatment: 1. The aggressiveness of your prostate cancer: You technically have high risk prostate cancer, which is a risk given to your cancer of coming back after treatment. This is based on three things 1. Your PSA (the blood test) was 35. PSA values below 10 are considered low risk and 10-20 are considered medium risk and above 20 are considered high risk. 2. Your highest Tai score was 9 (this is how aggressive your prostate cancer looks under the microscope). [place] scores for cancer range from 6-10, and 6 is considered lowest risk, while scores of8-10 are considered higher risk. 3. How aggressive your prostate cancer felt when Dr. Roe did the prostate exam (through the rectum). The decision to treat prostate cancer is based on both the risk that the cancer can kill you and your general overall health. I agree with Dr. Roe's recommendation that this should be treated since we would otherwise expect you to live a normal length of life. 2. Radiation Treatment Options: Radiation for your prostate cancer can be done in either 9 weeks with external beam radiation alone, or in 5.5 weeks. Side effects (diarrhea, urinary effects) may be slightly worse with the 5.5 week course 3. Fiducial marker and SpaceOAR gel implants: If you decide to choose external beam radiation by itself, the first step will be for you to return to our clinic so that we can place small gold markers (called fiducials) into the prostate, which help us visualize the prostate on a daily basis prior to treating you with radiation. These small gold seeds are about the size of a grain of rice, and we willplace one into each side of the prostate. At the same time I will also implant a gel called SpaceOAR, which involves an injection of the gel into the space between the prostate and rectum, to decrease the amount of radiation that goes to the rectum. Some early data suggests it may be helpful in reducing radiation injury to the rectum. These procedures will be performed here in our clinic, and our nursing team will provide you instructions with how to prepare yourself. It takes approximately 2 hours from when you arrive to when you leave the building. 4. Radiation Therapy and Planning: Radiation therapy involves using high energy radiation which kills cancer but also normal healthy tissues. In order to make sure the radiation goes to the cancerous tissues and to also avoid radiating the normal tissues, we design radiation beams beams into special shapes which come from various different directions. Because no two people and no two cancers are completely identical, the radiation plan we create for you will be unique to you and your body. In order to figure out how many beams to use, how much radiation to give, which angles they should come from, and how they should be shaped, we have asked you to undergo 2 mapping scans: one is done here in our department known as a CT simulation, or CT sim, for short. This is essentially a CAT-scan similar to scans which you may have received before, but slightly different in a few ways: First, it allows usto place you in the exact same position which you should expect to be placed during each of your radiation treatment sessions. Second, it lets us better understand where the radiation targets and the normal tissues that we want to avoid exist, in relation to each other and the radiation beams. The second scan is a prostate MRI which will show us the position of the markers and improve our ability to see your prostate. Following these scans, we then perform additional calculations and measurements to create the absolute best plan possible for you. Depending on the complexity of the plan, these processes can take fromjust few hours to several days, and for that we ask for your patience. If you have any questions about the planning process or your custom radiation plan, I would be more than happy to review the plan with you during your first week of treatment. I anticipate you would receive either 28 or 44 treatments total, daily Sunday-Sunday. (28 treatments if you choose to have the shorter course.) Your start date and time would be provided once the simulation scan is completed. During your radiation treatments , you can expect to see me once per week so that I can examine you to make sure you are tolerating radiation treatments and so that we can monitor your response to treatment. 5. SIDE EFFECTS - Short Term: We discussed some common temporary side effects that you may experience during radiation. Common side effects may include irritative symptoms of the bladder or prostate, which can result in more frequent urination or defecation. Other common side effects mahy include weake megha urinary stream or burning with urination. If you experience any of these, please let us know so that we can help to treat them. These typically resolve within 4-6 weeks of completion radiation. 6. SIDE EFFECTS - Returning Officer: These can include be permanent damage of the radiated tissues, including the rectum/bowel, bladder, prostate and surrounding tissues. Potential serious injury is rare, but can include poor wound healing, bleeding, or destruction of healthy tissue that may require surgery to repair and may result in a colostomy (bag for defecation) or urostomy (bag for urination). There may be a slow, assisted decrease in your sexual function as well, which is partly due to the aging process but also partly due to radiation side effects. This is typically responsive to medications like Viagra. Finally, there is a risk that radiation to your prostate increases the chance of getting another cancer caused by radiation, possibly of the prostate, bladder, rectum or surrounding tissues. This risk is overall quite low (approximately 1% above your normal risk for each 10 years you are alive), but is something to be aware of. 7. Hormone therapy: For high risk prostate cancers such as yours, I recommend a course of anti-testosterone therapy for 36 months (typically starting 2 months before radiation, contiuing for 2 months during radiation and ongoing after radiation is completed). This is usually given as a shot that lastsfor 3 months at a time. The reason we recommend this is that the male hormone testosterone is used by prostate cancer as a fuel. By decreasing the body's production of testosterone, we can 'starve' theprostate cancer. The main side effects of hormone therapy include hot flashes, night sweats, weight gain, depressed mood, loss of sexual interest and impotence. There is also a very low risk of heart at tack among men who have recently had a heart attack. These side effects usually reverse within 3-6 months of stopping the hormone therapy when testosterone recovers, although it can take up to a full year. During your radiation treatments we would also give you a pill to take once a day called Casodex (bicaluatamide) that blocks the effect of testosterone in the body. You should start taking this on the same day as your first injection of anti-testosterone shot (today, if you like.) Please do not hesitate to call me at [phone] with any other questions or concerns you have. If I am not here, one of our radiation oncology nurses can assist you or help you get in touch with me. A Radiation Oncology doctor is also vocational rehabilitation consultant after our normal hours and on weekends for urgent questions or concerns related to radiation treatments that can not wait until normal business hours. To reach the on-call doctor after-hours, just call and have the bolt machine operator page the Radiation Oncologist vocational rehabilitation consultant. And, as always, if you experience any life-threatening emergencies which any include the following, you need to seek emergency care immediately by calling 911: 1. Sudden and unexpected breathing difficulty without any exertion 2. Sudden onset of chest pain 3. Sudden onset of severe pain or uncontrolled pain 4. Sudden onset of severe weakness and/or unable to walk 5. Sudden new onset of a seizure 6. Fall resulting in injury 7. Uncontrollable bleeding Errol Russell MD, MS Files Supervisor of Radiation Oncology [facility] documented in this encounter Progress Notes Errol Brasher MD - 08/05/2021 10:00 AM EST Images from the original note were not included. Radiation Oncology Prostate Cancer Consult Note Errol Brasher MD, MS [facility] [phone] PATIENT IDENTIFICATION: PATIENT NAME: Shailesh Trevino DATE OF : 1940 REFERRING PROVIDER: Dr Roe REASON FOR CONSULTATION : Cancer Staging Malignant neoplasm of prostate Staging form: Prostate, AJCC 8th Edition - Clinical: Stage IIIC (cT1c, cN0, cM0, PSA: 35, Grade Group: 5) - Signed by Errol Brasher MD on08/03/2021 HISTORY OF PRESENT ILLNESS: Shailesh Varghese) is a 80 y.o. male recently diagnosed with a high- risk prostate cancer. Presenting Symptoms / Duration: ePSA, followed by Dr Roe with history of prior negative biopsies Prior consultations / recommendations: Dr Roe - 06/27/21 - high grade, high volume prostate cancer. Rec ADT/XRT. Lupron 7.5mg given that day and referral placed to Rad/Onc. Dr Roe - 07/28 - 2nd dose Lupron administered (22.5 mg) Dr Chaves - EGD 08/01/21 - gastric polyps and esophageal inflammation noted. Biopsies obtained. PSA History: 05/04/21 - 35.9 Pathology Results / Location: [facility] Bx (Dr Roe) - Gl 4+5 x 2 - Gl 4+4 x 5 - Gl 4+3 x 2 + PNI Pertinent Imaging Studies: 06/24/21 - Bone scan, CT A/P: no LAD, no bone metastases Ministerio is here today to discuss radiation therapy for treatment of his recently diagnosed prostate cancer. REVIEW OF SYSTEMS: REVIEW OF SYSTEMS 08/05/2021 Constitutional Hot flashes Ear / nose / throat / mouth Mouth sores, Difficulty swallowing Eyes None of the above Respiratory Cough, Thick mucous or spit (Sputum or Phlegm) Cardiovascular None of the above Gastrointestinal Trouble swallowing, Constipation, Diarrhea Skin, hair Itching Musculoskeletal Back pain Neurological None of the above Hematologic / Lymphatic Night sweats Genitourinary Frequent urination He has been COVID vaccinated. Most recent colonoscopy was 2019. A comprehensive 14 point review of systems was conducted with this patient and is otherwise negativeexcept as documented above. Baseline BRIANNE and IPSS are as below: Prostate Scores and Responses 08/05/2021 Confidence, level - past 6 months Very low Penetration - past 6 months No sexual activity Penetration, maintain - past 6 months Did not attempt intercourse Erection, maintain - past 6 months Did not attempt intercourse Sexual satisfaction - past 6 months Did not attempt intercourse Sexual Health in Men 1 (SEVERE ED) Incomplete emptying Not at all Frequency Less than 1 time in 5 Intermittency Not at all Urgency Less than half the time Weak Stream Not at all Straining Not at all Nocturia 1 time Quality of life Mostly satisfied Total IPSS Score 4 ( MILD LUTS) EPIC-PC Responses 08/05/2021 Urinary Incontinence Symptom Score 0 Urinary Irritation/Obstructive Symptom Score 1 Bowel Symptom Score 6 Vitality/Hormonal Symptom Score 3 Overall Prostate Cancer QOL Score 10 Urinary function problem Very small problem Urinary control Total control # of pads used per day None Urinary dripping/leakage problem No problem Pain or burning with urination No problem Weak urine stream/incomplete bladder emptying No problem Need to urinate frequently Very small problem Rectal pain or urgency of bowel movements Small problem Increased frequency of your bowel movements Small problem Overall problems with your bowel movements Small problem Bloody stools No problem Ability to reach orgasm Very poor to none Quality of your erections None at all Problem with sexual function or lack of it No problem Hot flashes or breast tenderness/enlargement Moderate problem Feeling depressed No problem Lack of energy No problem PAST MEDICAL HISTORY No past medical history on file. Past Surgical History: Procedure Laterality Date ??? PRG UNLISTED DIAGNOSTIC GASTROENTEROLOGY PROCEDURE N/A 11/16/2015 VIDEO CAPSULE ENDOSCOPY performed by Janneth Schwartz MD at [facility] ENDOSCOPY ??? PRO COLONOSCOPY, REMV LESN, SNARE 09/30/2013 COLONOSCOPY, POLYPECTOMY, REMOVAL LESION BY SNARE performed by Janneth Schwartz MD at [facility] ENDOSCOPY ??? PRO COLONOSCOPY, REMV LESN, SNARE N/A 10/01/2015 COLONOSCOPY, POLYPECTOMY, REMOVAL LESION BY SNARE performed by Janneth Schwartz MD at [facility] ENDOSCOPY ??? PRO COLONOSCOPY, REMV LESN, SNARE N/A 04/12/2018 COLONOSCOPY, POLYPECTOMY, REMOVAL LESION BY SNARE (WRVU 4.67) performed by Janneth Schwartz MD at [facility] ENDOSCOPY ??? PRO UPPER GI ENDOSCOPY, BIOPSY 09/30/2013 UPPER GASTROINTESTINAL ENDOSCOPY,WITH BIOPSY SINGLE OR MULTIPLE performed by Janneth Schwartz MD at [facility] ENDOSCOPY ??? PRO UPPER GI ENDOSCOPY, BIOPSY N/A 10/01/2015 UPPER GASTROINTESTINAL ENDOSCOPY,WITH BIOPSY SINGLE OR MULTIPLE performed by Janneth Schwartz MD at [facility] ENDOSCOPY ??? PRO UPPER GI ENDOSCOPY, BIOPSY N/A 11/16/2015 EGD WITH BIOPSY performed by Janneth Schwartz MD at [facility] ENDOSCOPY ??? PRO UPPER GI ENDOSCOPY, BIOPSY N/A 04/12/2018 EGD WITH BIOPSY (WRVU 2.49) performed by Janneth Schwartz MD at [facility] ENDOSCOPY CONTRAINDICATIONS TO RADIATION THERAPY: None ?? Prior radiation therapy: No ?? Active Lupus: No ?? Systemic Scleroderma: No MEDICATIONS / ALLERGIES: Medications 08/05/21 0954 Medication Sig Taking? calcium carbonate/vitamin D3 (CALTRATE WITH VITAMIN D3 ORAL) Take by mouth. Yes cholecalciferol, vitamin D3, (VITAMIN D3 ORAL) Take by mouth. Yes sucralfate (Carafate) 1 gram Tablet Take 1 g by mouth 4 times daily. Yes triamcinolone (KENALOG) 0.1 % Cream Apply to affected itchy rash areas twice daily until clear Yes pantoprazole (PROTONIX) 40 mg Tablet, Delayed Release (E.C.) TAKE 1 TABLET DAILY Yes Calcipotriene (DOVONEX) 0.005 % Crea 1 Appl(s), Top, Twice daily to affected areas until jyotsna Yes allopurinol (ZYLOPRIM) 300 mg tablet Take by mouth daily. Patient taking differently: Take by mouth daily. Yes colchicine (COLCRYS) 0.6 mg tablet Take by mouth daily. Patient taking differently: Take by mouth daily. Yes SIMVASTATIN ORAL Yes VITAMIN B COMPLEX (B COMPLEX VITAMINS ORAL) Yes meTOPROLOL succinate (TOPROL-XL) 25 mg Tablet Sustained Release 24 hr Daily nitroGLYcerin (NITROSTAT) 0.4 mg Tablet, Sublingual Q 5 MIN. X 3 ferrous sulfate 325 mg (65 mg iron) Tablet Take 325 mg by mouth daily (with breakfast). valACYclovir (VALTREX) 1 g tablet TAKE 1 TABLET DAILY Patient not taking: Reported on 08/05/2021 ibuprofen (ADVIL;MOTRIN) 800 mg tablet No Known Allergies SOCIAL HISTORY: [place]: [place], [place] Living Situation: With Transit time to [facility]: 40 mins Employment history: Retired Smokin pyh, quit 40 yrs ago Alcohol Rare Illicits: Denies FAMILY HISTORY: No family history on file. PHYSICAL EXAM BP 134/58 (Patient Position: Sitting) Pulse 58 Resp 18 Wt 76.2 kg (168 lb) Comment: with shoes SpO2 99% BMI 26.31 kg/m?? General: alert, well appearing, and in no distress sitting in exam room with at side RICKIE: deferred TODAY'S PERFORMANCE STATUS: KPS Score ECOG Grade Definition X 90-100 [...] selfcare; totally confined to bed or chair ASSESSMENT / PLAN: Shailesh Trevino is a 80 y.o. man diagnosed with high-risk prostate cancer (cT1c, Gl 4+5, PSA 35). Staging CT and bone scan are negative for metastatic disease. 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 Biopsies to evaluate progressive dysphagia were taken earlierthis week - results from distal esophagus inflamed mucosa and stomach polyups pending. He also has abarium swallow study pending for 08/12/21. Today we reviewed the risks, benefits, rationale, implications and alternatives of the various management options. Given Ministerio's age and extent of disease, surveillance and surgery were not recommendedby Dr Roe and I agree with this assessment. However, should he be diagnosed with an esophageal or gastric malignancy, Ministerio understands that upfront therapy recommendations may change. With regard to his radiation options, we reviewed the following: SBRT to the prostate Moderately hypofractionated RT to the prostate +/- pelvic RT Standard fractionated RT to prostate + pelvic RT Combination brachytherapy to the prostate + pelvic RT We reviewed that in general treatment efficacy is similar between radiation therapy and surgery, buthave varying logistic concerns and side effects. With regard to brachytherapy, we discussed the benefit in terms of added PSA control that can be achieved with a brachytherapy boost, but that it comes with added morbidity with - as yet - uncertain benefits in terms of disease-specific survival endpoints. Given his age I do not recommend brachytherapy. In the short term, I reviewed the common irritative bowel and bladder side effects associated with all forms of radiotherapy. In the assisted, I explained there is an approximately 2% chance of serious bladder or rectal toxicity as well as a very low risk of inducing a secondary malignancy. I also reviewed that with radiation there are few reliable salvage curative options.Logistics of external beamtreatment were also reviewed, including the role of fiducial marker placement with or without spaceOAR hydrogel placement, simulation, and treatment. I also reviewed the role of long-term ADT and side effects associated with this treatment. He understands there is a survival benefit when ADT is added to radiotherapy, and that side effects can include diminished libido, hot flashes, weight gain, mood swings, depression and/or osteoporosis. Clinical trials were also reviewed briefly. He is not a candidate for any currently open trials at [facility]. On balance, Ministerio wishes to proceed with LT-ADT + standard fractionated EBRT, assuming that the workup for a possible GI malignancy are negative. Informed consent for fiducial marker placement, spaceOAR hydrogel insertion, and radiotherapy were obtained today in clinic. Follow-up appointments will be made accordingly. All of his questions were answered to his satisfaction, and we have provided him with our contact information should any further questions or concerns arise. SUMMARY OF PLAN / RECOMMENDATION: 1. Intent of therapy: Curative 2. Clinical Trial Availability: No 3. Await pathology / barium swallow results 4. Schedule for fiducials, simulation pending above Time Attestation: I certify spending at least 60 minutes in providing care to this patient today, 08/05/21 as reflected by the following activities: - review of his medical record in the chart, including interpretation of imaging, laboratory and pathologic studies referenced above - discussion of the above with the patient as part of shared medical decision making - documenting the outcome of today's visit as above ERROL BRASHER MD, MS Lindsay Carson RN - 08/05/2021 10:00 AM EST RADIATION ONCOLOGY NURSING INITIAL NURSING ASSESSMENT IDENTIFICATION: Shailesh Trevino is a 80 y.o. year-old male with prostate cancer. PRESENTING SYMPTOMS/CHIEF COMPLAINT: Rising PSA. Previous prostate biopsy. REVIEW OF SYSTEMS: Answers for HPI/ROS submitted by the patient on 08/05/2021 Distress: 0 IN THE PAST 12 MONTHS HAVE YOU: Fallen more than one time? no Injured yourself as result of the fall? N/A Experienced difficulty with walking/problems with balance? No Do you use any assistive devices? No Any history of collagen vascular diseases:No Any Implanted Devices/Hardware: No If yes please put alert in ARIA patient summary Prior Radiotherapy: No Prior Chemotherapy: No Prior Hormone Therapy: Yes Current lupron with Dr. Roe. Last given 3 month dose 07/28/21. Next dosescheduled 10/31/2021. LEARNING ASSESSMENT REVIEWED: Yes ADVANCED DIRECTIVE: not addressed this encounter PAIN ASSESSMENT: [0] out of 10 *eD-H Adult PCS Flow Sheet if 4 or above SOCIAL ASSESSMENT: See [facility] social assessment information entered. Support Systems: Family. Here today with Nikkie. Barriers to treatment: None identified. Referrals/Interventions: [employer] J[employer]EE LEAD per routine RADIATION SPECIFIC TEACHING: [facility] Radiation Therapy and You Site specific teaching : Other: PLAN: Per Dr. Brasher documented in this encounter Plan of Treatment Upcoming Encounters Date Type Specialty Care Team Description 04/13/2023 Hospital Encounter Gastroenterology Janneth Schwartz MD [facility] [address] GASTROENTEROLOGY DEPT. [place], [place] [address] (Wo rk) Scheduled Procedures Name Priority Associated Diagnoses Date/Time COLONOSCOPY, DIAGNOSTIC 5 yr surv from 04/12/18 documented as of this encounter Visit Diagnoses Diagnosis Primary malignant neoplasm of prostate w ith high risk of recurrence due to [place] score of 8 to 10 and PSA greater than 20 documented in this encounter Care Teams Shank Rander Relationship Specialty Start Date End Date Demarco Lopez MD PCP - General 04/20/[address] [place] [address] documented as of this encounter
--- OUTSIDE RECORDS SUMMARY | 2022-08-11 01:25 | XMS_ITS | Encounter Summary ---
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 Rad Mri Procedures MRI Pelvis wo (Prostate) [address] [place] [address] [place] [address] [place] [address] 05 [phone] Referral ID Status Reason Start Date Expiration Date Visits V isits Requested Authorized [id number] Closed Specialty 08/17/2021 02/14/2023 1 1 Service Requested Encounter Details Date Type Department Care Team Description 09/20/2021 Hospital Encounter MRI at [facility] Errol Brasher, Primary malignant [facility] MD neoplasm of prostate Drive [address] with high [place] RADIATION recurrence [place] [id number] ONCOLOGY Holton score of [facility], [place] [address] [place] [address] greater than 20 Social History Tobacco Use Types [...] on file documented as of this encounter Medications at Time of Discharge Medication Sig Dispensed Refills Start Date End Date simvastatin (Zocor) 40 Take 40 mg by mouth 0 09/25 mg Tablet daily. cholecalciferol, Vitamin Take by mouth daily. 0 D3, 50 mcg (2,000 unit) Capsule calcium Take by mouth. 0 carbonate/vitamin D3 (CALTRATE WITH VITAMIN D3 ORAL) allopurinol (ZYLOPRIM) Take by mouth daily. 0 300 mg tablet VITAMIN B COMPLEX (B 0 2010 COMPLEX VITAMINS ORAL) levoFLOXacin (LEVAQUIN) Take 1 tablet by 10 tablet 0 202009/28/2021 500 mg Tablet mouth daily. dexamethasone (DECADRON) Take one tablet by 9 tablet 0 09/28/2021 1 mg Tablet mouth twice daily for 3 days. Then, take one tablet by mouth daily for 3 days. Start day of procedure LORazepam (Ativan) 1 mg Take one tablet 1 2 tablet 0 09/0909/28/2021 Tablet hour prior to your procedure. If you do not feel relaxed when you arrive at the Cancer Center, you may take an additional pill triamcinolone (KENALOG) Apply to affected 80 g 1 10/2512/01/2021 0.1 % Cream itchy rash areas twice daily until clear Calcipotriene (DOVONEX) Apply topically as 0 08/2412/01/2021 0.005 % Crea needed. colchicine (COLCRYS) 0.6 Take by mouth daily. 0 1 11/10/2009 12/01/2021 mg tablet ibuprofen (ADVIL;MOTRIN) Take by mouth. 0 010 11/24/2021 800 mg tablet documented as of this encounter Plan of Treatment Upcoming Encounters Date Type Specialty Care Team Description 04/13/2023 Hospital Encounter Gastroenterology Janneth Schwartz MD [facility] GASTROENTEROLOGY DEPT. [place], [place] [address] (Wo rk) Scheduled Procedures Name Priority Associated Diagnoses Date/Time COLONOSCOPY, DIAGNOSTIC 5 yr surv from 04/12/18 documented as of this encounter Procedures Procedure Name Priority Date/Time Associated Diagnosis Comme nts MRI PELVIS WO Routine 09/20/2021 5:01 PM Primary malignant Res ults for this (PROSTATE) EST neoplasm of prostate procedu re are in with high risk of the result s recurrence due to section. Tai score of 8 to 10 and PSA greater than 20 documented in this encounter Results MRI Pelvis wo (Prostate) [...] who have questions please contact the health attending ambulatory care that requested your imaging first. ? Narrative [...] ho have questions please contact the health attending ambulatory care that requested your imaging first. Errol Brasher MD IMG MRI ORDERABLES documented in this encounter Visit Diagnoses Diagnosis Primary malignant neoplasm of prostate w ith high risk of recurrence due to Holton score of 8 to 10 and PSA greater than 20 documented in this encounter Care Teams Ux Developer Designer Relationship Specialty Start Date End Date Demarco Lopez MD PCP - General 04/20/[address] [place] [address] documented as of this encounter
--- OUTSIDE RECORDS SUMMARY | 2022-08-11 01:25 | XMS_ITS | Encounter Summary ---
:1940 Author Organization [facility] [place] [address] Care Team Providers Name Role Phone Demarco Lopez MD Primary Care Provider [phone] Encounter Details Date Type Department Care Team Description 10/20/2021 [facility] neoplasm of prostate [address] with high risk of [place], [place] RADIATION ONCOL [place] [address] [place], [place] Oxford score of 8 to [phone] 10 and PSA greater [phone] (Wo rk) than 20 Social History Tobacco [...] Sign Reading Time Taken Comments Blood Pressure 139/62 10/20/2021 1:00 PM EST Pulse 80 10/20/2021 1:00 PM EST Temperature 36.4 ??C (97.5 ??F) 10/20/2021 1:00 PM EST Respiratory Rate 16 10/20/2021 1:00 PM EST Oxygen Saturation 100% 10/20/2021 1:00 PM EST Inhaled Oxygen Concentration - - Weight 80.3 kg (177 lb) 10/20/2021 1:00 PM EST Height - - Body Mass Index 27.72 04/12/2018 2:36 PM EDT documented in this encounter Progress Notes Errol Brasher MD - 10/20/2021 1:45 PM EST Images from the original note were not included. RADIATION ONCOLOGY - Weekly On Treatment Visit Note 10/20/21 ERROL BRASHER MD Radiation Oncology [facility] [phone] (paging piano machine operator) Pager #[phone] PATIENT IDENTIFICATION Name Shailesh Trevino Date of 1940 PCP Demarco Lopez MD Referring MD (if different) Dr. Roe Diagnosis High-Risk Prostate Cancer (PSA 35, cT1c, Gl 4+5) NEOADJUVANT / CONCURRENT THERAPY: LT-ADT (planned 32 months) Lupron #1: (7.5 mg) - Dr Roe [...] 79.2 Gy in 44 fractions Current Dose: 10.8 Gy in 6 fractions INTERVAL HISTORY General No changes since last seen. +HF, tolerable GI No diarrhea. Nocturia 0-1 x/nt at baseline. Slight increase in daytime frequency. Baseline IPSS history is listed below. Pain: Pain score today is 0/10. Prostate Today's Scores 08/05/2021 Sexual Health Inventory for Men 1 (Severe ED) International Prostate Symptom Score 4 ( Mild LUTS) MEDICATIONS Medications 10/20/21 1345 Medication Sig Taking? Psyllium Seed-Sucrose (0) Powder Take by mouth [...] original approved treatment planning images. EXAM: BP 139/62 Pulse 80 Temp 36.4 ??C (97.5 ??F) Resp 16 Wt 80.3 kg (177 lb) SpO2 100% BMI 27.72 kg/m?? Constitutional: he appears well-developed and well-nourished. [...] radiotherapy/ADT: Tolerating as anticipated. Continue as planned. Next Lupron scheduled w Dr Roe on 10/26/21 Followup: Return to clinic next week for on treatment check. documented in this encounter Plan of Treatment Upcoming Encounters Date Type Specialty Care Team Description 04/13/2023 Hospital Encounter Gastroenterology Janneth Schwartz MD [facility] GASTROENTEROLOGY DEPT. [place], [place] [address] (Wo rk) Scheduled Procedures Name Priority Associated Diagnoses Date/Time COLONOSCOPY, DIAGNOSTIC 5 yr surv from 04/12/18 documented as of this encounter Visit Diagnoses Diagnosis Primary malignant neoplasm of prostate w ith high risk of recurrence due to Tai score of 8 to 10 and PSA greater than 20 documented in this encounter Care Teams Mold Maker Apprentice Relationship Specialty Start Date End Date Demarco Lopez MD PCP - General 04/20/[address] [place] [address] documented as of this encounter
--- OUTSIDE RECORDS SUMMARY | 2022-08-11 01:26 | XMS_ITS | Encounter Summary ---
:1940 Author Organization [facility] [place] [address] Care Team Providers Name Role Phone Demarco Lopez MD Primary Care Provider [phone] Reason for Visit Reason Comments Medication Refill Encounter Details Date Type Department Care Team Description 09/20/2015 Refill Gastroenterology at [facility] Janneth Schwartz MD [facility] [place] [address] GASTROENTEROLOGY DEPT. [phone] [place], [place] [address] (Wo rk) Social History Tobacco Use Types Packs/Day Years Used Date Smoking Tobacco: Never Alcohol Use Standard Drinks/Week Comments Yes 2.5 (1 standard drink = 0.6 oz pure alco hol) Financial Resource Strain Answer Date Recorded How [...] Janneth Schwartz MD [facility] GASTROENTEROLOGY DEPT. [place], [place] [address] (Wo rk) Scheduled Procedures Name Priority Associated Diagnoses Date/Time COLONOSCOPY, DIAGNOSTIC 5 yr surv from 04/12/18 documented as of this encounter Visit Diagnoses Not on filedocumented in this encounter Care Teams Yard Goods Salesperson Relationship Specialty Start Date End Date Demarco Lopez MD PCP - General 04/20/[address] [place] [address] documented as of this encounter
--- OUTSIDE RECORDS SUMMARY | 2022-08-11 01:26 | XMS_ITS | Encounter Summary ---
:1940 Author Organization [facility] [place] [address] Care Team Providers Name Role Phone Demarco Lopez MD Primary Care Provider [phone] Reason for Visit Reason Comments Medication Refill Encounter Details Date Type Department Care Team Description 02/18/2017 Refill [place] [facility] [place]ann[place] Schwartz MD [facility] [place] [address] GASTROENTEROLOGY DEPT. [phone] [place], [place] [address] (Wo rk) Social History Tobacco Use Types Packs/Day Years Used Date Smoking Tobacco: Former Smokeless Tobacco: Never Alcohol Use Standard Drinks/Week Comments Yes 5 (1 standard drink = 0.6 oz pure alcoho l) Financial Resource Strain Answer Date Recorded How [...] place to sleep or slept in a care home (including now)? Sex Assigned at Date Recorded Not on file documented as of this encounter Plan of Treatment Upcoming Encounters Date Type Specialty Care Team Description 04/13/2023 Hospital Encounter Gastroenterology Janneth Schwartz MD [facility] GASTROENTEROLOGY DEPT. [place], [place] [address] (Wo rk) Scheduled Procedures Name Priority Associated Diagnoses Date/Time COLONOSCOPY, DIAGNOSTIC 5 yr surv from 04/12/18 documented as of this encounter Visit Diagnoses Not on filedocumented in this encounter Care Teams Signal System Testing Maintainer Relationship Specialty Start Date End Date Demarco Lopez MD PCP - General 04/20/[address] [place] [address] documented as of this encounter
--- OUTSIDE RECORDS SUMMARY | 2022-08-11 01:26 | XMS_ITS | Encounter Summary ---
:1940 Author Organization [facility] Address [facility] [place] [address] Care Team Providers Name Role Phone Juhi Howell APRN Primary Care Provider Reason for Visit Reason Comments Medication Refill Encounter Details Date Type Department Care Team Description 02/12/2011 Refill Dermatology Doug Castanon MD [address] [facility] [address] DERMATOLOGY [place], [place] [address] [place] [address] [phone] (Wo rk) Social History Tobacco Use Types Packs/Day Years Used Date Smoking Tobacco: Never Assessed Financial Resource Strain Answer Date Recorded How [...] place to sleep or slept in a prison (including now)? Sex Assigned at Date Recorded Not on file documented as of this encounter Plan of Treatment Upcoming Encounters Date Type Specialty Care Team Description 04/13/2023 Hospital Encounter Gastroenterology Janneth Schwartz MD [facility] GASTROENTEROLOGY DEPT. [place], [place] [address] (Wo rk) Scheduled Procedures Name Priority Associated Diagnoses Date/Time COLONOSCOPY, DIAGNOSTIC 5 yr surv from 04/12/18 documented as of this encounter Visit Diagnoses Not on filedocumented in this encounter Care Teams Manager Action Relationship Specialty Start Date End Date Juhi Howell APRN PCP - General 09/07/10 04/19/15 [address] [place] [address] documented as of this encounter
--- OUTSIDE RECORDS SUMMARY | 2022-08-11 01:26 | XMS_ITS | Encounter Summary ---
:1940 Author Organization [place] [address] Care Team Providers Name Role Phone Demarco Lopez MD Primary Care Provider [phone] Reason for Visit Reason Comments Skin Check Encounter Details Date Type Department Care Team Description 04/20/2015 Office Visit Dermatology at [place] (reinaldo Beal MD keratosis) [address] [facility] Justin B DERMATOLOGY [place], [place] [id number] [phone] Social History Tobacco Use Types Packs/Day Years [...] as of this encounter Patient Instructions Patient InstructionsEmmanuel Joi OlivaRAEGAN - 04/20/2015 4:17 PM EDT [facility] Actinic Keratosis: After Your Visit Your Care Instructions Actinic keratosis is a skin growth caused by sun damage. It can turn into skin cancer, but this isn't common. Actinic keratoses, also called solar keratoses, are small red, brown, or skin-colored scalypatches. They are most common on the face, neck, hands, and forearms. Your doctor can remove these growths by freezing or scraping them off or by putting medicines on them. Follow-up care is a cabello part of your treatment and safety. Be sure to make and go to all appointments, and call your doctor if you are having problems. It's also a good idea to know your test results and keep a list of the medicines you take. How can you care for yourself at home? ?? If your doctor removes the growth, clean the area with soap and water 2 times a day unless your doctor gives you different instructions. Don't use hydrogen peroxide or alcohol, which can slow healing. ?? You may cover the wound with a thin layer of petroleum jelly, such as Vaseline, and a nonstick bandage. To prevent actinic keratosis ?? Always wear sunscreen on exposed skin. Make sure the sunscreen blocks ultraviolet rays (both UVA and UVB) and has a sun protection factor (SPF) of at least 15. Use it every day, even when it is cloudy. Some doctors may recommend a higher SPF, such as 30. ?? Wear long sleeves, a hat, and pants if you are going to be outdoors for a long time. ?? Avoid the sun between 10 a.m. and 4 p.m., the peak time for UV rays. ?? Do not use tanning booths or sunlamps. When should you call for help? Watch closely for changes in your health, and be sure to contact your doctor if: ?? The areas that were treated are red, drain pus, or have red streaks leading from them. ?? You see other growths that do not go away. ?? You do not get better as expected. Where can you learn more? Visit our health information library at [email or web address] You can also view health information on [employer], your personal patient account. Log in or sign up today. Enter L364 in the search box to learn more about Actinic Keratosis: After Your Visit. ?? [phone] [employer]. Care instructions adapted under license by [facility]. This care instruction is for use with your licensed healthcare professional. If you have questionsabout a medical condition or this instruction, always ask your healthcare professional. [employer] disclaims any warranty or liability for your use of this information. Content Version: 10.4.968403; Current as of: April 23, 2014 documented in this encounter Progress Notes Doug Castanon MD - 04/20/2015 4:45 PM EDT Problems: 1. Yearly skin checkup. 2. 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 3. Psoriasis of the glans penis, controlled with Vaseline cream. Shailesh follows up and is doing well. He stopped his Dovonex. He stopped his valacyclovir. He is taking just half of his prior allopurinol dose, and he stopped colchicine. He remains on full-dose Protonix, and he has dropped his simvastatin to half. He is quite pleased about being able to simplify his medication regimen. He does enjoy golfing and comes in today for a regular skin check. Physical examination reveals actinic keratoses present on the left and right cheek and on the left and right upper forehead; four sites are noted today. Otherwise, he has no psoriasis on the glans penis, and he has a benign examination of the head and neck, chest, back, hands, arms, forearms, thighs, and calves. Assessment and Plan: 1. Actinic keratoses, facial. a. LN2 times two applied to each of four sites. 2. Herpes labialis. a. Currently in remission. 3. Genital psoriasis. a. Currently in remission. b. I recommended now return to clinic on a p.r.n. basis. COPY: Demarco Lopez M.D. documented in this encounter Plan of Treatment Upcoming Encounters Date Type Specialty Care Team Description 04/13/2023 Hospital Encounter Gastroenterology Janneth Schwartz MD [facility] DR GASTROENTEROLOGY DEPT. [place], [place] [address] (Wo rk) Scheduled Procedures Name Priority Associated Diagnoses Date/Time COLONOSCOPY, DIAGNOSTIC 5 yr surv from 04/12/18 documented as of this encounter Visit Diagnoses Diagnosis [place] (actinic keratosis) Actinic keratosis documented in this encounter Care Teams Porcelain Turner Relationship Specialty Start Date End Date Demarco Lopez MD PCP - General 04/20/[address] [place] [address] [address] [facility] [address] [place] [address] documented as of this encounter
--- OUTSIDE RECORDS SUMMARY | 2022-08-11 01:26 | XMS_ITS | Encounter Summary ---
:1940 Author Organization [facility] [place] [address] Care Team Providers Name Role Phone Juhi Howell APRN Primary Care Provider Reason for Visit Reason Comments Medication Refill Encounter Details Date Type Department Care Team Description 03/26/2013 Refill Gastroenterology at [facility] Janneth Schwartz, Landers's esophagus [facility] Jim coon MD (Primary Dx) [place] [address] [facility] [phone] GASTROENTEROLOGY DEPT. [place], [place] [address] Social History Tobacco Use Types Packs/Day Years Used Date Smoking Tobacco: Never Financial Resource Strain Answer Date Recorded How [...] place to sleep or slept in a jail (including now)? Sex Assigned at Date Recorded Not on file documented as of this encounter Plan of Treatment Upcoming Encounters Date Type Specialty Care Team Description 04/13/2023 Hospital Encounter Gastroenterology Janneth Schwartz MD [facility] GASTROENTEROLOGY DEPT. [place], [place] [address] (Wo rk) Scheduled Procedures Name Priority Associated Diagnoses Date/Time COLONOSCOPY, DIAGNOSTIC 5 yr surv from 04/12/18 documented as of this encounter Visit Diagnoses Diagnosis Landers's esophagus - Primary documented in this encounter Care Teams Bracer Relationship Specialty Start Date End Date Juhi Howell APRN PCP - General 09/07/10 04/19/15 [address] [place] [address] documented as of this encounter
--- OUTSIDE RECORDS SUMMARY | 2022-08-11 01:26 | XMS_ITS | Encounter Summary ---
:1940 Author Organization [facility] [place] [address] Care Team Providers Name Role Phone Juhi Howell APRN Primary Care Provider Encounter Details Date Type Department Care Team Description 2010 Hospital Encounter Gastroenterology at [facility] Janneth Schwartz, [facility] [place] [address] [facility] [phone] [place] GASTROENTEROLOGY DEPT. [place], [place] [address] Social History Tobacco Use Types [...] Sig Dispensed Refills Start Date End Date allopurinol (ZYLOPRIM) Take by mouth daily. 0 300 mg tablet VITAMIN B COMPLEX (B 0 2010 COMPLEX VITAMINS ORAL) valACYclovir (VALTREX) 1 1000 mg, PO, Once 0 08/2402/12/2011 g tablet daily Calcipotriene (DOVONEX) Apply topically as 0 08/2412/01/2021 0.005 % Crea needed. colchicine (COLCRYS) 0.6 Take by mouth daily. 0 1 11/10/2009 12/01/2021 mg tablet SIMVASTATIN ORAL 0 2010 09/14/20 21 ibuprofen (ADVIL;MOTRIN) Take by mouth. 0 010 11/24/2021 800 mg tablet documented as of this encounter Plan of Treatment Upcoming Encounters Date Type Specialty Care Team Description 04/13/2023 Hospital Encounter Gastroenterology Janneth Schwartz MD [facility] ER GASTROENTEROLOGY DEPT. [place], [place] [address] (Wo rk) Scheduled Procedures Name Priority Associated Diagnoses Date/Time COLONOSCOPY, DIAGNOSTIC 5 yr surv from 04/12/18 documented as of this encounter Visit Diagnoses Not on filedocumented in this encounter Care Teams Hide Puller Relationship Specialty Start Date End Date Juhi Howell APRN PCP - General 09/07/10 04/19/15 [address] [facility] [address] documented as of this encounter
--- OUTSIDE RECORDS SUMMARY | 2022-08-11 01:26 | XMS_ITS | Encounter Summary ---
:1940 Author Organization [facility] [place] [address] Care Team Providers Name Role Phone Demarco Lopez MD Primary Care Provider [phone] Reason for Visit Reason Onset Date Comments Results 10/28/2015 Encounter Details Date Type Department Care Team Description 10/28/2015 Telephone Gastroenterology at [facility] Oneil Zelaya RN Results [facility] [place] [address] Social History Tobacco Use Types Packs/Day [...] this encounter Miscellaneous Notes Telephone Encounter - Oneil Zelaya RN - 10/28/2015 3:07 PM EST Patient calls for biopsy results from EGD and colo done 10/01/15. Did not receive letter or call. Also wonders whether he should be going ahead with video capsule endoscopy? If so, how long does he have to wear the line supervisor and can he return it by mail? Routing to Dr. Schwartz documented in this encounter Plan of Treatment Upcoming Encounters Date Type Specialty Care Team Description 04/13/2023 Hospital Encounter Gastroenterology Janneth Schwartz MD [facility] DR GASTROENTEROLOGY DEPT. [place], [place] [address] (Wo rk) Scheduled Procedures Name Priority Associated Diagnoses Date/Time COLONOSCOPY, DIAGNOSTIC 5 yr surv from 04/12/18 documented as of this encounter Visit Diagnoses Not on filedocumented in this encounter Care Teams Drycleaner Relationship Specialty Start Date End Date Demarco Lopez MD PCP - General 04/20/[address] [facility] [place] [address] documented as of this encounter
--- OUTSIDE RECORDS SUMMARY | 2022-08-11 01:26 | XMS_ITS | Encounter Summary ---
:1940 Author Organization [facility] Address [address] [address] Care Team Providers Name Role Phone Demarco Lopez MD Primary Care Provider [phone] Reason for Visit Auth/Cert Specialty Diagnoses / Procedures Referred By Contact Refer red To Contact Diagnoses 3 yr surv from 10/01/15 3yr surv Procedures PRO UPPER GI ENDOSCOPY, DIAGNOSTIC PRO COLONOSCOPY, DIAGNOSTIC EGD, UPPER GI ENDOSCOPY COLONOSCOPY, DIAGNOSTIC COLONOSCOPY, DIAGNOSTIC Referral ID Status Reason Start Date Expiration Date Visits Requ ested Visits Authorized [id number] 1 1 Encounter Details Date Type Department Care Team Description 04/12/2018 Surgery Gastroenterology at [facility] Janneth Schwartz, EGD WITH BIOPSY ([facility] Jim coon MD 2.49) [place] [address] [facility] [phone] GASTROENTEROLOGY DEPT. [place], [place] [address] Social History Tobacco Use Types [...] Sign Reading Time Taken Comments Blood Pressure 114/56 04/12/2018 4:10 PM EDT Pulse 48 04/12/2018 4:15 PM EDT Temperature - - Respiratory Rate 10 04/12/2018 4:15 PM EDT Oxygen Saturation 100% 04/12/2018 4:15 PM EDT Inhaled Oxygen Concentration - - Weight 78 kg (172 lb) 04/12/2018 2:36 PM EDT Height 170.2 cm (5' 7) 04/12/2018 2:36 PM EDT Body Mass Index 26.94 04/12/2018 2:36 PM EDT documented in this encounter Discharge Instructions Discharge InstructionsMarianne Solis RN - 04/12/2018 4:33 PM EDT UPPER GI ENDOSCOPY with polypectomy WHAT TO EXPECT AFTER THE PROCEDURE After the test you may feel a little more gassy or bloated than usual, this is normal. ACTIVITY Because of the sedation that you received Your judgement and reaction time are affected ?? Go home and rest quietly for the remainder of the day. You may resume your normal activities tomorrow. ?? Change from one position to the next slowly. You may lose your balance unexpectedly Be careful on stairs, as you may be unsteady on your feet. FOR THE NEXT 24 HRS ?? DO NOT DRIVE OR OPERATE ANY MACHINERY ?? DO NOT DRINK ALCOHOLIC BEVERAGES ?? DO NOT SIGN LEGAL DOCUMENTS ?? If you are a smoker: DO NOT SMOKE WHILE YOU ARE ALONE Diet ?? Start by eating small portions of foods that ordinarily will not upset your stomach. Be gentle with what you choose to start with. ?? Drink plenty of fluids ( unless otherwise told not to) Medications You may have a mild sore throat. Ice chips, popsicles, over the counter throat lozenges or spray may help numb your throat. This procedure should not cause a fever. IV SITE-- slight redness or tenderness is normal, you can use warm compresses if you get concerned.If the tenderness +/or redness increases or foul drainage and a red streak occurs, please contact your PCP immediately. WHEN SHOULD YOU CALL FOR HELP? Call 911 anytime you think that you need emergency care. For example, call if: You passed out (lost consciousness). You cough up blood. You vomit blood or what looks like coffee grounds. You pass maroon or very bloody stools. Call your healthcare provider or seek immediate medical attention if: You have trouble swallowing. You have belly pain. Your stools are black or tarlike or have streaks of blood. You are sick to your stomach or cannot keep fluids down. Watch closely for changes in your health, and be sure to contact your doctor IF Your throat still hurts after a day or two You do not get better as expected. Sunday-Sunday Same Day Endo [phone] 7a-8p Otherwise contact [phone] and ask to speak to the creative assistant bevel face stoner and polisher Follow-up care is a cabello part of your treatment and safety. Be sure to make and go to all appointments, and call your doctor if you are having problems. Instructions have been reviewed and patient expresses understanding Colonoscopy and polyp removal What to expect after the procedure You may feel a little more gassy or bloated than usual, this is normal. You should expect the return of normal bowel function in the next 2 to 3 days. Because some polyps were removed, you may see a little blood with the next few bowel movements, this should be a small amount ( less than a few tablespoons) and will resolve on it's own. ACTIVITY Because of the sedation that you received Your judgement and reaction time are effected ?? Go home and rest for the remainder for the day. You may resume your normal activities tomorrow ?? Change from one position to the next slowly because you may lose your balance unexpectedly. ?? Be careful on stairs, as you may be unsteady. ?? Avoid strenuous activity for 48 to 72 hrs FOR THE NEXT 24 HRS ?? DO NOT DRIVE OR OPERATE MACHINERY ?? DO NOT DRINK ALCOHOLIC BEVERAGES ?? DO NOT SIGN LEGAL DOCUMENTS ?? If you are a smoker: DO NOT SMOKE WHILE YOU ARE ALONE Diet ?? Start by eating small portions of foods that ordinarily will not upset your stomach, avoid gas producing foods for the next few days. ?? Be gentle with what you choose to start with ?? Drink plenty of fluids ( unless your doctor has told you not to). ?? A soft diet may be helpful for the next 3 days as this may help to keep the stools soft Medicines Avoid medicines that influence the way your blood clots for the next week. These would include anti-inflammatory medicine, such as ibuprofen( Advil, Motrin) and naproxen ( Aleve). If you need something for discomfort, Tylenol (Acetaminophen) is safe if used as directed. Your Doctor will tell you whento restart your prescribed blood thinners The IV site-- slight tenderness, or redness is normal, you can use warm compresses if you get concerned. If the tenderness +/or redness increases or foul drainage and a red streak occurs, please contact your PCP immediately. When should you call for help? Call 911 anytime you think you may need emergency care. For example If you pass out (loss of consciousness) If you pass maroon or bloody stools If you have severe belly pain Call your healthcare provider or seek immediate medical care if: Your stools are black or tar like Your stools have streaks of blood that is more pronounced with each BM You have belly pain, or your belly is swollen and firm You vomit You have a fever You are very dizzy Watch closely for changes in your health, and be sure to contact your doctor if you have any problems. Your Doctor will let you know when you will need your next colonoscopy. The results of your test andyour risk for colorectal cancer will help your doctor decide how often you need to be checked. Sunday-Sunday Same Day Endo [phone] 7a-8p Otherwise contact [phone] and ask to speak to the creative assistant bevel face stoner and polisher Follow up care is a cabello part of your treatment and safety. Be sure to make and go to all appointments, and call your doctor if you are having problems. Discharge instructions reviewed with patient who expresses understanding documented in this encounter Medications at Time of Discharge Medication Sig Dispensed Refills Start Date End Date allopurinol (ZYLOPRIM) Take by mouth daily. 0 300 mg tablet VITAMIN B COMPLEX (B 0 2010 COMPLEX VITAMINS ORAL) pantoprazole (PROTONIX) TAKE 1 TABLET DAILY 90 tablet 0 09/14/2021 40 mg Tablet, Delayed Release (E.C.) aspirin 81 mg Tablet, Daily 0 09/08/201508/2021 Chewable meTOPROLOL succinate Daily 0 09/22/201508/25 (TOPROL-XL) 25 mg Tablet Sustained Release 24 hr nitroGLYcerin (NITROSTAT) Q 5 MIN. X 3 0 09/08/20 15 09/14/2021 0.4 mg Tablet, Sublingual ferrous sulfate 325 mg Take 325 mg by mouth 0 09/14/2021 (65 mg iron) Tablet daily (with breakfast). valACYclovir (VALTREX) 1 TAKE 1 TABLET DAILY 90 tablet 3 09/14/2021 g tablet Calcipotriene (DOVONEX) Apply topically as 0 08/2412/01/2021 0.005 % Crea needed. colchicine (COLCRYS) 0.6 Take by mouth daily. 0 1 11/10/2009 12/01/2021 mg tablet SIMVASTATIN ORAL 0 2010 09/14/20 21 ibuprofen (ADVIL;MOTRIN) Take by mouth. 0 010 11/24/2021 800 mg tablet documented as of this encounter H&P Notes Janneth Schwartz MD - 04/12/2018 3:02 PM EDT Gastroenterology and Hepatology Pre-Procedure History and Physical Exam Procedure: EGD: Colonoscopy: Indication: Gastric polyp and colonic polyp surveillance Patient Active Problem List Diagnosis Code ??? 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 Psoriasis L40.9 ??? Inflamed seborrheic keratosis L82.0 ??? AK (actinic keratosis) L57.0 ??? Other seborrheic keratosis L82.1 ??? Anemia, iron deficiency D50.9 EXAM: HEENT: Airway examined, oropharynx clear Mallampati Score: I (soft palate, uvula, fauces, tonsillar pillars visible) LUNGS: Clear to auscultation HEART: Regular rate and rhythm, normal S1, S2 ABDOMEN: Normal bowel sounds, soft, non tender, non distended, A/P Proceed with the planned endoscopic procedure. ASA 2 - Patient with mild systemic disease with no functional limitations Sedation Plan: moderate (conscious sedation) Risks and benefits of the procedure explained to the patient. Consent signed. documented in this encounter Plan of Treatment Upcoming Encounters Date Type Specialty Care Team Description 04/13/2023 Hospital Encounter Gastroenterology Janneth Schwartz MD [facility] DR GASTROENTEROLOGY DEPT. [place], [place] [address] (Wo rk) Scheduled Procedures Name Priority Associated Diagnoses Date/Time COLONOSCOPY, DIAGNOSTIC 5 yr surv from 04/12/18 documented as of this encounter Procedures Procedure Name Priority Date/Time Associated Comments Diagnosis SPECIMEN TO PATHOLOGY Routine 04/12/2018 4:14 PM Results for this EDT procedure are i n the results section. SPECIMEN TO PATHOLOGY Routine 04/12/2018 4:14 PM Results for this EDT procedure are i n the results section. SPECIMEN TO PATHOLOGY Routine 04/12/2018 4:14 PM Results for this EDT procedure are i n the results section. SURGICAL PATHOLOGY Routine 04/12/2018 3:20 PM Res ults for this REPORT EDT procedure are i n the results section. COLONOSCOPY, 04/12/2018 3:03 PM 2 yr surv POLYPECTOMY, REMOVAL EDT LESION BY SNARE (WRVU 4.67) EGD WITH BIOPSY (WRVU 04/12/2018 3:03 PM 2 yr surv 2.49) EDT UPPER GI ENDOSCOPY Routine 04/12/2018 2:40 PM Res ults for this EDT procedure are i n the results section. COLONOSCOPY Routine 04/12/2018 2:40 PM Results f or this EDT procedure are i n the results section. documented in this encounter Results Specimen to Pathology (04/12/2018 4:14 PM EDT) Specimen Anatomical Collection Method Collection Time Receive d Time (Source) Location / / Volume Laterality AP Specimen 04/12/2018 4:14 PM 8 4:14 EDT PM EDT Narrative [facility] - 04/12/2018 4:14 PM EDT Specimen requisition ordered. ??Separate Pathology report to follow L Jose Schwartz MD PATHOLOGY/CYTOLOGY ORDERABLE S Performing Organization Address [facility]/ZIP [facility] Phon e Number [address] Specimen to Pathology (04/12/2018 4:14 PM EDT) Specimen Anatomical Collection Method Collection Time Receive d Time (Source) Location / / Volume Laterality AP Specimen 04/12/2018 4:14 PM 8 4:14 EDT PM EDT Narrative [facility] - 04/12/2018 4:14 PM EDT Specimen requisition ordered. ??Separate Pathology report to follow L Jose Schwartz MD PATHOLOGY/CYTOLOGY ORDERABLE S Performing Organization Address City/[facility]/[place] [address] Specimen to Pathology (04/12/2018 4:14 PM EDT) Specimen Anatomical Collection Method Collection Time Receive d Time (Source) Location / / Volume Laterality AP Specimen 04/12/2018 4:14 PM 8 4:14 EDT PM EDT Narrative [facility] - 04/12/2018 4:14 PM EDT Specimen requisition ordered. ??Separate Pathology report to follow L Jose Schwartz MD PATHOLOGY/CYTOLOGY ORDERABLE S Performing Organization Address [facility] [place] [address] Surgical Pathology Report (04/12/2018 3:20 PM EDT) Component Value Ref Test Analysis Performed At [facility] Method Time Signature Surgical [id number] ? Location: 4T; EA06; A [facility] Pathology [place] Report The signing pathologist has (i) examined the relevant preparation(s) for the [facility]ORIAL specimen(s) and (ii) rendered or confirmed the diagnosis(es) . HOSPITAL LABORATORY . ?Surgic al Pathology DIAGNOSIS A - Stomach, ??polypectomy: Gastric fundic gland polyp(s) and hyperplastic p olyp(s) (multiple fragments). B - Distal esophagus, ?? 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 No dysplasia is seen. C - Transverse colon, ?? polypectomy: Tubular adenoma. Electronically signed by: ??Georgie King MD Verified: ??04/17/2018 ?Pathologist Performed at: ??-[facility] Dept. of Pathology, [place], [place] CLINICAL INFORMATION Specimen Submitted: A - Gastric biopsies for hx of hyperplastic polyps B - Mucosal biopsies of distal esophagus C - 5 mm polyp from transverse colon Clinical History and Diagnosis: 77-year-old male EGD and col onoscopy for history of hyperplastic gastric polyps and Landers 's esophagus and colon polyps. SPECIMEN PROCESSING A - Labeled/Fixative: Gastri c biopsies for history of hyperplastic polyps, formalin. Quantity/Size: Multiple, ranging from 0.1-0.5 cm. Tissue Description: Soft, miner-white tissue and miner-pink poly poid tissue. Sections/Processing: (T4) B - Labeled/Fixative: Mucosal biopsies of distal esophagus, formalin. Quantity/Size: Multiple, ranging from 0.1-0.5 cm. Tissue Description: Soft, miner-pink tissue. Sections/Processing: (T2) C - Labeled/Fixative: 5 mm polyp from transverse colon, form felix. Quantity/Size: One, 0.5 cm. Tissue Description: Soft but firm, miner-pink polyp. Sections/Processing: Submitted intact. (T1) ??apb Specimen (Source) Anatomical Collection Method Collection Time Re ceived Time Location / / Volume Laterality 04/12/2018 3:20 PM EDT L Jose Schwartz MD PATHOLOGY/CYTOLOGY ORDERABLE S Performing Organization Address City/State/ZIP [place] [address] UPPER GI ENDOSCOPY (04/12/2018 2:40 PM EDT) Component Value Ref Test Analysis Performed At [facility] Range Method Time Signature UPPER GI [facility] ENDOSCOPY Endoscopy Procedure Date: 04/12/2018 2:40 PM ? Patient Name: Shailesh Trevino ? Date of : 1940 ? Age: 77 ? Order #: [id number] ? Instrument Name: [id number] ? Procedure: ? Upper GI endoscopy Indications: ? Follow-up of Landers's esophagus an d ? surveillance of hyperplastic polyps Providers: ? Annie Schwartz MD, Patricia Frederick ? Chris Bernal, Sania Mills MD: ?Demarco Lopez md Medicines: ? Midazolam 5 mg IV, Fentanyl 200 ? micrograms IV Complications: ? No immediate complications. Procedure: ? Pre-Anesthesia Assessment: ? - Prior to the procedure, a H istory ? and Physical was performed, a nd ? patient medications and aller gies ? were reviewed. The patient is ? competent. The risks and bene fits of ? the procedure and the sedatio n ? options and risks were discus sed with ? the patient. All questions we re ? answered and informed consent was ? obtained. Patient identificat ion and ? proposed procedure were verif ied by ? the physician in the pre-proc edure ? area in the endoscopy suite. Mental ? Status Examination: alert and ? oriented. Airway Examination: normal ? oropharyngeal airway and neck ? mobility. Respiratory Examina tion: ? clear to auscultation. CV ? Examination: normal. ASA Grad e ? Assessment: II - A patient wi th mild ? systemic disease. After revie wing the ? risks and benefits, the patie nt was ? deemed in satisfactory condit ion to ? undergo the procedure. The an esthesia ? plan was to use moderate sue tion / ? analgesia (conscious sedation ). ? Immediately prior to administ ration ? of medications, the patient w as ? re-assessed for adequacy to r eceive ? sedatives. The heart rate, ? respiratory rate, oxygen satu rations, ? blood pressure, adequacy of p ulmonary ? ventilation, and response to care ? were monitored throughout the ? procedure. The physical statu s of the ? patient was re-assessed after the ? procedure. ? The procedure, indications, b enefits, ? risks and alternatives were e xplained ? to the patient. Specifically ? discussed were potential ? complications including, but not ? limited to, bleeding, perfora tion, ? infection, missing a cancer, and ? adverse medication reactions. The ? Endoscope was introduced thro [facility] the ? mouth, and advanced to the ird part ? of duodenum. The patient tole rated ? the procedure well. The upper GI ? endoscopy was accomplished wi out ? difficulty. ? Findings: ? A small hiatal hernia was found. The proximal extent ? of the gastric folds (end of tubular esophagus) was ? 36 cm from the incisors. The hiatal narrowing was 38 ? cm from the incisors. ? The esophagus and gastroesophageal junction were ? examined with white light and narrow band imaging ? (NBI) from a forward view and retroflexed position. ? There were esophageal mucosal changes suggestive of ? short-segment Landers's esophagus. These changes ? involved the mucosa at the upper extent of the ? gastric folds (36 cm from the incisors) extending to ? the Z-line (34 cm from the incisors). Squamous ? islands were present. The maximum longitudinal extent ? of these esophageal mucosal changes was 2 cm in ? length. Mucosa was biopsied with a cold forceps for ? histology in 4 quadrants from 34 to 36 cm from the ? incisors. One specimen bottle was sent to pathology. ? Multiple (about 10) 2 to 6 mm sessile polyps without ? any bleeding were found in the gastric fundus and in ? the gastric body. Polyps were resected using a cold ? snare and a cold biopsy forceps. Resection and ? retrieval were complete. ? The examined duodenum was normal. ? Moderate Sedation: ? I was present during the intraservice time as ? documented by the sedation RN. Impression: ?- Small hiatal hernia. ? - Esophageal mucosal changes ? suggestive of short-segment B arrett's ? esophagus. Biopsied. ? - Multiple gastric polyps. Re sected ? and retrieved. ? - Normal examined duodenum. Recommendation: ?- Await pathology results. ? - Continue pantoprazole. ? Attending Participation: ? I personally performed the entire procedure. ? Annie Schwartz MD 04/12/2018 3:45:14 PM Number of Addenda: 0 Note Initiated On: 04/12/2018 2:40 PM Specimen (Source) Anatomical Collection Method Collection Time Re ceived Time Location / / Volume Laterality 04/12/2018 2:40 PM EDT Unknown GENERAL SURGICAL ORDERABLES Performing Organization Address City/State/ZIP Code Phon e Number [facility] COLONOSCOPY (04/12/2018 2:40 PM EDT) [facility] Method Time Signature COLONOSCOPY [facility] Endoscopy Procedure Date: 04/12/2018 2:40 PM ? Patient Name: Shailesh Trevnio ? Date of : 1940 ? Age: 77 ? Order #: [id number] ? Instrument Name: [id number] ? Procedure: ? Colonoscopy Indications: ? High risk colon cancer surveillance : ? Personal history of colonic p olyps Providers: ? LTamara Schwartz MD, Ruth johnson, ? Chris Márquez, Instrument Adjuster Referring MD: ?Demarco Lopez md Medicines: ? Midazolam 1 mg IV, Fentanyl 50 ? micrograms IV, plus residual ? medication from EGD Complications: ? No immediate complications. Procedure: ? Pre-Anesthesia Assessment: ? - Prior to the procedure, a H istory ? and Physical was performed, a nd ? patient medications and aller gies ? were reviewed. The patient is ? competent. The risks and bene fits of ? the procedure and the sedatio n ? options and risks were discus sed with ? the patient. All questions we re ? answered and informed consent was ? obtained. Patient identificat ion and ? proposed procedure were verif ied by ? the physician in the pre-proc edure ? area in the endoscopy suite. Mental ? Status Examination: alert and ? oriented. Airway Examination: normal ? oropharyngeal airway and neck ? mobility. Respiratory Examina tion: ? clear to auscultation. CV ? Examination: normal. ASA Grad e ? Assessment: II - A patient wi th mild ? systemic disease. After revie wing the ? risks and benefits, the patie nt was ? deemed in satisfactory condit ion to ? undergo the procedure. The an esthesia ? plan was to use moderate sue tion / ? analgesia (conscious sedation ). ? Immediately prior to administ ration ? of medications, the patient w as ? re-assessed for adequacy to r eceive ? sedatives. The heart rate, ? respiratory rate, oxygen satu rations, ? blood pressure, adequacy of p ulmonary ? ventilation, and response to care ? were monitored throughout the ? procedure. The physical statu s of the ? patient was re-assessed after the ? procedure. ? The procedure, indications, b enefits, ? risks and alternatives were e xplained ? to the patient. Specifically ? discussed were potential ? complications including, but not ? limited to, bleeding, perfora tion, ? infection, missing a cancer, and ? adverse medication reactions. The ? patient was placed in the lef t ? lateral decubitus position, a nd a ? digital rectal exam was perfo rmed. ? The Colonoscope was inserted in the ? anus and under direct visuali zation, ? advanced to the terminal ileu m, with ? identification of the appendi ceal ? orifice and IC valve. Careful ? inspection was made as the ? colonoscope was withdrawn. Th e ? colonoscopy was performed wit hout ? difficulty. The patient sadiq ated the ? procedure well. The quality o f the ? bowel preparation was evaluat ed using ? the BBPS ([place] Bowel Prepar ation ? Scale) with scores of: Right Colon = ? 3 (entire mucosa seen well wi th no ? residual staining, small frag ments of ? stool or opaque liquid), Melton sverse ? Colon = 3 (entire mucosa seen well ? with no residual staining, sm all ? fragments of stool or opaque liquid) ? and Left Colon = 3 (entire mu cosa ? seen well with no residual st aining, ? small fragments of stool or o paque ? liquid). The total BBPS score equals ? 9. The quality of the bowel ? preparation was excellent. Sc ope ? withdrawal time was 9 minutes . ? Findings: ? Multiple small and large-mouthed diverticula were ? found from sigmoid to descending colon. ? A 5 mm polyp was found in the transverse colon. The ? polyp was sessile. The polyp was removed with a cold ? snare. Resection and retrieval were complete. ? The terminal ileum appeared normal. ? Moderate Sedation: ? I was present during the intraservice time as ? documented by the sedation RN. Impression: ?- Moderate diverticulosis from ? sigmoid to descending colon. ? - One 5 mm polyp in the trans verse ? colon, removed with a cold sn are. ? Resected and retrieved. ? - The examined portion of the ileum ? was normal. Recommendation: ?- Anticipate 5 year interval until ? next colonoscopy, pending fin al ? pathology results. Patient wi ll be ? notified by mail within 3 wee ks of ? final results. ? Attending Participation: ? I personally performed the entire procedure. ? L. Jose Schwartz MD 04/12/2018 4:26:26 PM Number of Addenda: 0 Note Initiated On: 04/12/2018 2:40 PM Specimen (Source) Anatomical Collection Method Collection Time Re ceived Time Location / / Volume Laterality 04/12/2018 2:40 PM EDT Unknown GENERAL SURGICAL ORDERABLES Performing Organization Address City/State/ZIP Code Phon e Number [facility] documented in this encounter Visit Diagnoses Not on filedocumented in this encounter Administered Medications Inactive Administered Medications - up to 3 most recent administrations Medication Order MAR Action Action Date Dose Rate Site fentaNYL 50 mcg/mL multi-dose Given 04/12/2018 3:51 PM EDT 25 mc g injection ONCE PRN, Starting on Sun04/12/18 at 1505, Until Sun04/12/18 at 1930, Intra-Operative (Intra-Procedure), Routine Given 04/12/2018 3:49 PM EDT 25 mcg Given 04/12/2018 3:27 PM EDT 50 mcg lactated Ringers infusion New Bag 04/12/2018 3:15 PM EDT 200 mL/hr 200 mL/hr 200 mL/hr, Intravenous, CONTINUOUS, Starting on Sun04/12/18 at 1515, Until Sun04/12/18 at 1705, Endoscopy (Day of Procedure) midazolam (PF) (VERSED) 1 mg/mL multi-dose Given 04/12/2018 3:45 PM EDT 0.5 mg injection ONCE PRN, Starting on Sun04/12/18 at 1505, Until Sun04/12/18 at 1930, Intra-Operative (Intra-Procedure), Routine Given 04/12/2018 3:30 PM EDT 1 mg Given 04/12/2018 3:27 PM EDT 0.5 mg documented in this encounter Active and Recently Administered Medications Times are shown in EDT. Continuous Medication Order 04/10/2018 04/11/2018 04/12/2018 lactated Ringers infusion (CANCELED) 1515 (New Bag - Provider: Sony Chaney RN) 200 mL/hr, at 200 mL/hr, Intravenous, CO NTINUOUS, Starting Sun04/12/18 at 1515, Until Sun04/12/18 at 1705, Endo (Day of Procedure) PRN Medication Order 04/10/2018 04/11/2018 04/12/2018 fentaNYL 50 mcg/mL multi-dose injection (CANCELED) 1505 (Given - Provider: Ruth Lloyd RN)1508 (Given - Provider: Ruth Lloyd RN)1511 (Given - Provider: Ruth Lloyd RN)1527 (Given - Provider: Ruth Lloyd RN)1549 (Given - Provider: Ruth Lloyd RN) ONCE PRN, Starting Sun04/12/18 at 1505, Until Sun04/12/18 at 1930, Intra- Operative (Intra-Procedure), Routine 155 1 (Given - Provider: Ruth Lloyd RN) midazolam (PF) (VERSED) 1 mg/mL multi-dose injection (CANCELED) 1505 (Given - Provider: Ruth Lloyd RN)1508 (Given - Provider: Ruth Lloyd RN)1512 (Given - Provider: Ruth Lloyd RN)1516 (Given - Provider: Ruth Lloyd, BRENDA)1527 (Given - Provider: Ruth Lloyd RN) ONCE PRN, Starting Sun04/12/18 at 1505, Until Sun04/12/18 at 1930, Intra- Operative (Intra-Procedure), Routine 153 0 (Given - Provider: Ruth Lloyd RN)1545 (Given - Provider: Ruth Lloyd RN) documented in this encounter Care Teams Log Driver Relationship Specialty Start Date End Date Demarco Lopez MD PCP - General 04/20/[address] [place] [address] documented as of this encounter
--- OUTSIDE RECORDS SUMMARY | 2022-08-11 01:26 | XMS_ITS | Encounter Summary ---
:1940 Author Organization [facility] [place] [address] Care Team Providers Name Role Phone Demarco Lopez MD Primary Care Provider [phone] Reason for Visit Reason Comments Follow-up Skin Check Consultation (Routine) - Specialty Diagnoses / Procedures Referred By Contact Refer red To Contact Dermatology Diagnoses Rash and other nonspecific skin eruption Rash Demarco Lopez MD Hammer, Charles J, MD Procedures Consult [address] [place] [address] DERMATOLOGY [place], [place] [address] [place] [address] Fax: Referral ID Status Reason Start Date Expiration Date Visits V isits Requested Authorized [id number] 07/25/2018 07/25/2019 1 1 Encounter Details Date Type Department Care Team Description 10/25/2018 Office Visit Dermatology at [facility] Inflame d seborrheic keratosis; Lian GARCIA Seborrheic keratosis; [address] Dermatitis; Justin B DERMATOLOGY Pruritus; [place], [place] [address] Xerosis cutis [id number] [phone] Social History Tobacco Use Types Packs/Day Years [...] place to sleep or slept in a fci (including now)? Sex Assigned at Date Recorded Not on file documented as of this encounter Progress Notes Doug Castanon MD - 10/25/2018 9:45 AM EST Problem: 1. Skin concerns 2. History of recurrent herpes labialis 3. History of psoriasiform dermatitis/psoriasis glans penis controlled Vaseline cream Shailesh follows up and is enjoying fpc skiing in the winter and golfing in the summer. He has been having itchiness and a rash since last spring on his arms his legs and also perirectally. He referred today by Balta Lopez for evaluation of this. He is now 78. Physical examination reveals irritated seborrheic keratosis present on his right upper back on his right anterior thigh. He has numerous seborrheic keratoses on his back. He has numerous stucco keratoses on his around his ankles he has had them around his wrists. He also has a few limited patchy areasof spongiotic dermatitis on the extremities. He is diffusely xerotic skin. He has varicosities of both lower extremities but without any stasis dermatitis and without any ulcerations or skin breakdown.On the perineum inferior to the rectum he has an erythematous scaling patch. Differential for this would be wide but could include psoriasis, inverse, possible irritant dermatitis versus possible kerati nocyte malignancy. Assessment plan: Pruritus 1. Recommended showering only every other day, not every day and recommended Ivory soap rather than the current Fair purchase product that his gets for him. 2. Recommend using emollient cream such as CeraVe cream rather than his current lotion. Apply daily 3. Prescription given for triamcinolone 0.1% cream applying a twice daily basis to affected areas for control of his itching. Dispense 80 g with 1 refill call this into his [employer] in [place]. Discontinue his current hydrocortisone cream 4. Note 1/2-hour spent patient one half was spent counseling. Seborrheic keratoses 1. Described how seborrheic keratosis hand trigger points for itching and can exacerbate his overallpruritus. 2. Today 2 inflamed seborrheic keratoses were treated with LN 2 x 2 3. Patient reassured about the benign nature 4. Patient reassured that these are not warts. Perineal dermatitis 1. Today a 4 mm punch was obtained from the site and submitted for pathologic analysis 2. Wound care instructions and supplies given 3. Return to clinic here in 10-14 days for suture removal biopsy results. CC: Demarco Lopez MD documented in this encounter Plan of Treatment Upcoming Encounters Date Type Specialty Care Team Description 04/13/2023 Hospital Encounter Gastroenterology Janneth Schwartz MD [facility] GASTROENTEROLOGY DEPT. [place], [place] [address] (Wo rk) Scheduled Procedures Name Priority Associated Diagnoses Date/Time COLONOSCOPY, DIAGNOSTIC 5 yr surv from 04/12/18 documented as of this encounter Visit Diagnoses Diagnosis Inflamed seborrheic keratosis Seborrheic keratosis Other seborrheic keratosis Dermatitis Contact dermatitis and other eczema, due to unspecified cause Pruritus Unspecified pruritic disorder Xerosis cutis Other specified disease of sebaceous gla nds documented in this encounter Care Teams Cooling System Operator Relationship Specialty Start Date End Date Demarco Lopez MD PCP - General 04/20/[address] [place] [address] documented as of this encounter
--- OUTSIDE RECORDS SUMMARY | 2022-08-11 01:26 | XMS_ITS | Encounter Summary ---
:1940 Author Organization [facility] [place] [address] Care Team Providers Name Role Phone Juhi Howell APRN Primary Care Provider Encounter Details Date Type Department Care Team Description 04/20/2014 Office Visit Dermatology at [facility] [place] (act inic keratosis) (Primary Dx); Lian GARCIA Other seborrheic keratosis [address] Justin B DERMATOLOGY [place], [place] [id number] [phone] Social History Tobacco Use Types Packs/Day Years [...] as of this encounter Progress Notes Doug Casatnon MD - 04/20/2014 3:16 PM EDT Problem List: 1. One year skin checkup. 2. History of recurrent herpes labialis, previously on valacyclovir suppression therapy. 3. Psoriasis of the glans penis. Shailesh follows up and has stopped both Dovonex and stopped his valacyclovir, and has really not had any flares or problems. He is quite pleased that he is simplifying his treatment regimen. He would like to have a general skin check. He also was able to stop his colchicine. He hopes to stop his simvastatin. Physical examination reveals a pleasant 73-year-old gentleman who has several actinics, very mild and in early stages of development, on the lateral cheeks and denominational areas bilaterally. Also has one on the left lateral neck. Otherwise, careful examination of the head and the neck, the hands, arms, and forearms is benign. He does not desire examination of the chest or back. Assessment and Plan: 1. Herpes labialis. a. Currently in remission. b. Not utilizing valacyclovir currently. 2. Psoriasis, genital. a. Currently in remission, not using Dovonex currently. 3. Actinic keratoses. a. LN2 times two applied to each of three sites on lateral cheeks. Recommend return to clinic in another year for repeat check. COPY: Tucker Banuelos. documented in this encounter Plan of Treatment Upcoming Encounters Date Type Specialty Care Team Description 04/13/2023 Hospital Encounter Gastroenterology Janneth Schwartz MD [facility] GASTROENTEROLOGY DEPT. [place], [place] [address] (Wo rk) Scheduled Procedures Name Priority Associated Diagnoses Date/Time COLONOSCOPY, DIAGNOSTIC 5 yr surv from 04/12/18 documented as of this encounter Visit Diagnoses Diagnosis [place] (actinic keratosis) - Primary Actinic keratosis Other seborrheic keratosis documented in this encounter Care Teams Fitness Leader Relationship Specialty Start Date End Date Juhi Howell APRN PCP - General 09/07/10 04/19/15 [address] [place] [address] documented as of this encounter
--- OUTSIDE RECORDS SUMMARY | 2022-08-11 01:26 | XMS_ITS | Encounter Summary ---
:1940 Author Organization [facility] Address [address] [place] [address] Care Team Providers Name Role Phone Juhi Howell APRN Primary Care Provider Reason for Visit Reason Comments Medication Refill Encounter Details Date Type Department Care Team Description 03/08/2012 Refill Dermatology Doug Castanon MD [address] [facility] [address] DERMATOLOGY [place], [place] [address] [place] [address] [phone] (Wo rk) Social History Tobacco Use Types [...] Hospital Encounter Gastroenterology Janneth Schwartz MD [facility] GASTROENTEROLOGY DEPT. [place], [place] [address] (Wo rk) Scheduled Procedures Name Priority Associated Diagnoses Date/Time COLONOSCOPY, DIAGNOSTIC 5 yr surv from 04/12/18 documented as of this encounter Visit Diagnoses Not on filedocumented in this encounter Care Teams Burn Out Tender Lace Relationship Specialty Start Date End Date Juhi Howell APRN PCP - General 09/07/10 04/19/15 [address] [place] [address] documented as of this encounter
--- OUTSIDE RECORDS SUMMARY | 2022-08-11 01:26 | XMS_ITS | Encounter Summary ---
:1940 Author Organization [facility] [place] [address] Care Team Providers Name Role Phone Juhi Howell APRN Primary Care Provider Reason for Visit Reason Comments Medication Refill Encounter Details Date Type Department Care Team Description 05/01/2012 Refill [place] [facility] Janneth Schwartz MD Landers esophagus [facility] [place] [address] GASTROENTEROLOGY DEPT. [place], [place] [address] (Wo rk) Social History Tobacco [...] place to sleep or slept in a alf (including now)? Sex Assigned at Date Recorded Not on file documented as of this encounter Plan of Treatment Upcoming Encounters Date Type Specialty Care Team Description 04/13/2023 Hospital Encounter Gastroenterology Janneth Schwartz MD [facility] GASTROENTEROLOGY DEPT. 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
--- OUTSIDE RECORDS SUMMARY | 2022-08-11 01:26 | XMS_ITS | Encounter Summary ---
:1940 Author Organization [facility] [place] [address] Care Team Providers Name Role Phone Juhi Howell APRN Primary Care Provider Reason for Visit Reason Comments Skin Check Encounter Details Date Type Department Care Team Description 02/28/2011 Office Visit Dermatology [facility], Psoriasis (Primary Dx); [address] Herpes labialis [address] [place], [place] DERMATOLOGY [id number] [place] [address] [phone] (Wo rk) Social History Tobacco Use Types [...] place to sleep or slept in a [facility] (including now)? Sex Assigned at Date Recorded Not on file documented as of this encounter Progress Notes Doug Castanon MD - 02/28/2011 4:11 PM EDT Problems: 1. One-year followup. 2. History of recurrent herpes labialis on Valacyclovir suppression therapy. 3. Psoriasis of glans penis. Shailesh follows up and has been doing well. As long as he stays on the Valacyclovir he has only 3-4 outbreaks of herpes labialis of the lips a year. Prior to the Valacyclovir, he would have one outbreak almost monthly. The two tubes of Dovonex Cream lasts him for a year. He has noted a new lesion on the right dorsal hand. Physical examination reveals a hyperkeratotic papule consistent with irritated seborrheic keratosis on the right dorsal hand. The patient is well t[place] Examination of the head, neck, chest, back, hands, arms and forearms is otherwise benign. He does not desire examination of the psoriasis of the glans penis. Assessment & Plan: Herpes labialis. a. Patient given refills for Valacyclovir 1gm size take one p.o. daily, #90 dispensed for a three-month supply with two refills. Psoriasis, genital. a. Continue Dovonex Cream applying this on a q. day basis/p.r.n., #60 dispensed with one refill. Seborrheic keratosis right dorsal hand. a. LN2 x2 applied to site. Cc: CHINTAN Banuelos RTC Reminder: One Year documented in this encounter Plan of Treatment Upcoming Encounters Date Type Specialty Care Team Description 04/13/2023 Hospital Encounter Gastroenterology Janneth Schwartz MD [facility] GASTROENTEROLOGY DEPT. [place], [place] [address] (Wo rk) Scheduled Procedures Name Priority Associated Diagnoses Date/Time COLONOSCOPY, DIAGNOSTIC 5 yr surv from 04/12/18 documented as of this encounter Visit Diagnoses Diagnosis Psoriasis - Primary Other psoriasis Herpes labialis Herpes simplex without mention of compli cation documented in this encounter Care Teams Child Development Teacher Relationship Specialty Start Date End Date Juhi Howell APRN PCP - General 09/07/10 04/19/15 [address] [place] [address] documented as of this encounter
--- OUTSIDE RECORDS SUMMARY | 2022-08-11 01:26 | XMS_ITS | Encounter Summary ---
:1940 Author Organization [facility] [place] [address] Care Team Providers Name Role Phone Demarco Lopez MD Primary Care Provider Encounter Details Date Type Department Care Team Description 11/16/2015 Hospital Encounter Gastroenterology at [facility] Janneth Schwartz, [facility] [place] [address] [facility] [phone] [facility]. [place], [place] [address] Social History Tobacco Use Types [...] place to sleep or slept in a fdc (including now)? Sex Assigned at Date Recorded Not on file documented as of this encounter Last Filed Vital Signs Vital Sign Reading Time Taken Comments Blood Pressure 124/64 11/16/2015 9:00 AM EST Pulse 61 11/16/2015 8:45 AM EST Temperature - - Respiratory Rate 19 11/16/2015 8:45 AM EST Oxygen Saturation 93% 11/16/2015 9:00 AM EST Inhaled Oxygen Concentration - - Weight - - Height - - Body Mass Index - - documented in this encounter Discharge Instructions Discharge InstructionsSandra Corley RN - 11/16/2015 8:55 AM EST UPPER GI ENDOSCOPY WHAT TO EXPECT AFTER THE PROCEDURE After [...] WHEN SHOULD YOU CALL FOR HELP? Call [phone] anytime you think that you need emergency [...] better as expected. Sunday-Sunday Same Day Endo [phone]-[phone] Otherwise contact [phone] and ask to speak to the postal worker substation supervisor Follow-up care is a cabello part of your treatment and safety. Be sure to make and go to all appointments, and call your doctor if you are having problems. Instructions have been reviewed and patient expresses understanding documented in this encounter Medications at Time of Discharge Medication Sig Dispensed Refills Start Date End Date allopurinol (ZYLOPRIM) Take by mouth daily. 0 300 mg tablet VITAMIN B COMPLEX (B 0 2010 COMPLEX VITAMINS ORAL) aspirin 81 mg Tablet, Daily 0 09/08/201508/2021 Chewable meTOPROLOL succinate Daily 0 09/22/201508/25 (TOPROL-XL) 25 mg Tablet Sustained Release 24 hr nitroGLYcerin (NITROSTAT) Q 5 MIN. X 3 0 09/08/20 15 09/14/2021 0.4 mg Tablet, Sublingual ferrous sulfate 325 mg Take 325 mg by mouth 0 09/14/2021 (65 mg iron) Tablet daily (with breakfast). pantoprazole (PROTONIX) TAKE 1 TABLET DAILY 90 tablet 2 08/22/2016 40 mg Tablet, Delayed Release (E.C.) valACYclovir (VALTREX) 1 TAKE 1 TABLET DAILY [...] encounter H&P Notes Janneth Schwartz MD - 11/16/2015 7:42 AM EST Gastroenterology and Hepatology Pre-Procedure History and Physical Exam Procedure: EGD: and video capsule Indication: iron def anemia and gastric polyps Patient Active Problem List Diagnosis Code ??? 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 Psoriasis L40.9 ??? Inflamed seborrheic keratosis L82.0 ??? AK (actinic keratosis) L57.0 ??? Other seborrheic keratosis L82.1 ??? Anemia, iron deficiency D50.9 EXAM: HEENT: Airway examined, oropharynx clear Mallampati Score: II (soft palate, uvula, fauces visible) LUNGS: Clear to auscultation HEART: Regular rate and rhythm, normal S1, S2 ABDOMEN: Normal bowel sounds, soft, non tender, non distended, A/P Proceed with the planned endoscopic procedure. ASA 2 - Patient with mild systemic disease with no functional limitations Sedation Plan: moderate (conscious sedation) Risks and benefits of the procedure explained to the patient. Consent signed. documented in this encounter Miscellaneous Notes Op Note - Janneth Schwartz MD - 11/16/2015 8:43 AM EST [facility] Operative Note Patient Name: Shailesh Trevino : [id number] MR#: [id number] Case Date: 11/16/2015 Surgeon: Surgeon(s) and Role: * Janneth Schwartz MD - Primary Preoperative diagnosis: gastric polyps schedule in Oct Postoperative diagnosis: * No post-op diagnosis entered * Procedure(s): EGD WITH BIOPSY VIDEO CAPSULE ENDOSCOPY Please see the Provation procedure report in the Procedures tab in eDH. documented in this encounter Plan of Treatment Upcoming Encounters Date Type Specialty Care Team Description 04/13/2023 Hospital Encounter Gastroenterology Janneth Schwartz MD [facility] DEPT. [place], [place] [address] (Wo rk) Scheduled Procedures Name Priority Associated Diagnoses Date/Time COLONOSCOPY, DIAGNOSTIC 5 yr surv from 04/12/18 documented as of this encounter Procedures Procedure Name Priority Date/Time Associated Diagnosis Comme nts SURGICAL PATHOLOGY Routine 11/16/2015 8:43 AM Res ults for this REPORT EST procedure are i n the results section. SPECIMEN TO Routine 11/16/2015 8:43 AM Results f or this PATHOLOGY EST procedure are i n the results section. VIDEO CAPSULE 11/16/2015 8:10 AM gastric polyp s ENDOSCOPY EST schedule in Oct EGD WITH BIOPSY 11/16/2015 8:10 AM gastric polyp s (WRVU 2.49) EST schedule in Oct VIDEO CAPSULE Routine 11/16/2015 8:00 AM Results for this ENDOSCOPY EST procedure are i n the results section. UPPER GI ENDOSCOPY Routine 11/16/2015 7:35 AM Res ults for this EST procedure are i n the results section. documented in this encounter Results Surgical Pathology Report (11/16/2015 8:43 AM EST) [facility] Method Time Signature Surgical [id number] ? Location: [facility] Pathology [place] Report The signing pathologist has (i) examined the relevant preparation(s) for the [facility]IAL specimen(s) and (ii) rendered or confirmed the diagnosis(es) . HOSPITAL LABORATORY . ?Surgic al Pathology DIAGNOSIS Gastric fundus and body, polypectomy: Fragments of gastric hyperplastic polyps and gastric fundic gland polyps. 11/17/15 AAY 11/18/15 Verified by: ? Christine GARCIA, Georgie Johnston ?Pathologist ?(Electronic Signature ) The attending pathologist whose signature appears on this re port has reviewed all diagnostic slides and has edited the gross and/ or microscopic portion of the report in jeyson dering the final pathologic diagnosis. CLINICAL INFORMATION Specimen Submitted: A - Polyps - gastric fundus and body Clinical History: 75 year old with history of anemia and gastric hyperplastic polyps Clinical Diagnosis: Same SPECIMEN PROCESSING A - Labeled/Fixative: Polyps-gastric fundus and body, formal in. Quantity/Size: Multiple, 0.3-1.4 cm. Tissue Description: Soft, miner-pink, polypoid portions of tis gin. Sections/Processing: Inked and sectioned. ??(T13)[facility] Specimen (Source) Anatomical Collection Method Collection Time Re ceived Time Location / / Volume Laterality 11/16/2015 8:43 AM EST L Jose Schwartz MD PATHOLOGY/CYTOLOGY ORDERABLE S Performing Organization Address City/[facility]/ZIP Code Phon e Number [address] Specimen to Pathology (surgical or derm) (11/16/2015 8:43 AM EST) Specimen Anatomical Collection Method Collection Time Receive d Time (Source) Location / / Volume Laterality AP Specimen 11/16/2015 8:43 AM 6 8:43 EST AM EST Narrative [facility] - 11/16/2015 8:43 AM EST Specimen requisition ordered. ??Separate Pathology report to follow L Jose Schwartz MD PATHOLOGY/CYTOLOGY ORDERABLE S Performing Organization Address City/[facility]/[place] [address] VIDEO CAPSULE ENDOSCOPY (11/16/2015 8:00 AM EST) [facility] gist Method Time Signature VIDEO CAPSULE [facility] ENDOSCOPY Endoscopy Patient Name: Shailesh Trevino ? Procedure Date: 11/16/2015 8:00 AM ? Date of : 1940 ? Age: 75 ? Order #: [id number] ? Procedure: ? Video capsule endoscopy Indications: ? Iron deficiency anemia Providers: ? Annie Schwartz MD, Aria Pike MD: ?Demarco Lopez md Medicines: ? See the other procedure note for ? documentation of the administ ered ? medications Complications: ? No immediate complications. Procedure: ? Pre-Anesthesia Assessment: ? - See the other procedure not e for ? documentation of the pre-proc edure ? assessment. ? The SensorArray was applied t o the ? patient's abdomen with adhesi ve pads ? and connected to the DataReco rder ? around the waist. The DataRec order ? was checked to ensure green l ight was ? flashing. The M2A capsule was placed ? (see EGD report). This was ? accomplished without difficul ty. The ? patient was then given instru ctions ? for eating and drinking and w as ? instructed to periodically mo nitor ? the DataRecorder throughout t day ? to insure proper transmission . ? Approximately eight hours lat er the ? patient returned for removal of the ? SensorArray. ? Findings: ? The video capsule had previously been placed into the ? duodenum endoscopically, so no images from the ? esophagus or stomach are available. ? The capsule was deployed in the duodenum in 3-min and ? traversed the IC valve in 3-hr 42-min for a total ? small bowel transit time of 3-hr 39-min. ? There was no evidence of significant pathology in the ? small bowel (entire small bowel). ? Impression: ?- Normal small bowel. Recommendation: ?Gastric polyps seen on endoscopy are ? the most likely of chronic bl ood ? losses resulting in anemia. ? Annie Schwartz MD 11/19/2015 4:47 PM Number of Addenda: 0 Note Initiated On: 11/19/2015 4:38 PM Specimen (Source) Anatomical Collection Method Collection Time Re ceived Time Location / / Volume Laterality 11/16/2015 8:00 AM EST Unknown GENERAL SURGICAL ORDERABLES Performing Organization Address City/State/ZIP Code Phon e Number [facility] UPPER GI ENDOSCOPY (11/16/2015 7:35 AM EST) Component Value Ref Test Analysis Performed At [facility] Method Time Signature UPPER GI [facility] ENDOSCOPY Endoscopy Patient Name: Shailesh Trevino ? Procedure Date: 11/16/2015 7:35 AM ? N: [id number] ? Date of : 1940 ? Age: 75 ? Order #: [id number] ? Procedure: ? Upper GI endoscopy Indications: ? Iron deficiency anemia, Removal of ? known gastric hyperplastic po lyps, ? placement of video capsule en doscopy Providers: ? L. Jose Schwartz MD, Sony wiley, ? RN, Tristan Toure, Sania Mills MD: ?Demarco Lopez md Medicines: ? Midazolam 4 mg IV, Fentanyl 150 ? micrograms IV Complications: ? No immediate [...] reactions. The ? Endoscope was introduced thro ugh the ? mouth, and advanced to the se cond ? part of duodenum. The patient ? tolerated the procedure well. The ? upper GI endoscopy was accomp lished ? without difficulty. ? Findings: ? A small hiatus hernia was present. ? There were esophageal mucosal changes consistent with ? Landers's esophagus present in the lower third of the ? esophagus. The maximum longitudinal extent of these ? mucosal changes was 1 cm in length. These were as ? described on the September upper endoscopy. The ? Landers's was not biopsied as this was biopsied on ? last exam. ? Multiple 2 to 10 mm sessile polyps were found in the ? gastric fundus and in the gastric body. The larger ? polyps were in the body and had were congested and ? erythematous. About twelve of the largest polyps were ? removed with a hot snare. Resection and retrieval ? were complete. Retrieval required a Cuellar net for most ? of the polyps. ? The examined duodenum was normal. ? After the removal of the polyps, the gastroscope was ? removed and the video capsule deployment device was ? attached and then advanced into the 2nd part of the ? duodenum where the capsule was deployed without ? difficulty. ? Impression: ?- Small hiatus hernia as previousl y ? described. ? - Esophageal mucosal changes ? consistent with Landers's eso phagus ? as previously described.. ? - Multiple gastric polyps. Th e ? largest were resected and ret rieved. ? - Normal examined duodenum. ? - Successful completion of th e Video ? Capsule Enteroscope placement . Recommendation: ?- Await pathology. ? - Await results of video caps ule ? endoscopy. ? - Follow-up with Dr. Lopez to ? manage iron replacement and a nemia. ? Recommend considering iron in fusions ? depending on response to oral ? supplementation. ? - (Images were captured but a ppeared ? dark and underexposed). ? L. Jose Schwartz MD 11/16/2015 8:54 AM Number of Addenda: 0 Note Initiated On: 11/16/2015 7:35 AM Specimen (Source) Anatomical Collection Method Collection Time Re ceived Time Location / / Volume Laterality 11/16/2015 7:35 AM EST Unknown GENERAL SURGICAL ORDERABLES Performing Organization Address City/State/ZIP Code Phon e Number [facility] documented in this encounter Visit Diagnoses Not on filedocumented in this encounter Active and Recently Administered Medications Times are shown in EST. PRN Medication Order 11/14/2015 11/15/2015 11/16/2015 fentaNYL 50 mcg/mL multi-dose injection (CANCELED) 0753 (Given - Provider: Sony Chaney RN)0757 (Given - Provider: Sony Chaney, BRENDA)0813 (Given - Provider: Sony Chaney, RN) ONCE PRN, Starting 11/16/15 at 0753, Until 11/16/15 at 1159, Intra- Operative (Intra-Procedure), Routine midazolam (PF) (VERSED) 1 mg/mL multi-dose injection (CANCELED) 0753 (Given - Provider: Sony Chaney RN)0757 (Given - Provider: Sony Chaney, RN)0808 (Given - Provider: Sony Chaney, RN)0813 (Given - Provider: Sony Chaney, RN) ONCE PRN, Starting 11/16/15 at 0753, Until 11/16/15 at 1159, Intra- Operative (Intra-Procedure), Routine documented in this encounter Care Teams Construction Helper Relationship Specialty Start Date End Date Demarco Lopez MD PCP - General 04/20/[address] [place] [address] documented as of this encounter
--- OUTSIDE RECORDS SUMMARY | 2022-08-11 01:26 | XMS_ITS | Encounter Summary ---
:1940 Author Organization [facility] [place] [address] Care Team Providers Name Role Phone Juhi Howell APRN Primary Care Provider Reason for Visit Reason Comments Medication Refill Encounter Details Date Type Department Care Team Description 06/30/2014 Refill Gastroenterology at [facility] Janneth Schwartz MD [facility] [place] [address] GASTROENTEROLOGY DEPT. [phone] [place], [place] [address] (Wo rk) Social History Tobacco [...] Encounter Gastroenterology Janneth Schwartz MD [facility] ER [address] GASTROENTEROLOGY DEPT. [place], [place] [address] (Wo rk) Scheduled Procedures Name Priority Associated Diagnoses Date/Time COLONOSCOPY, DIAGNOSTIC 5 yr surv from 04/12/18 documented as of this encounter Visit Diagnoses Not on filedocumented in this encounter Care Teams Research Anthropologist Relationship Specialty Start Date End Date Juhi Howell APRN PCP - General 09/07/10 04/19/15 [address] [address] documented as of this encounter
--- OUTSIDE RECORDS SUMMARY | 2022-08-11 01:26 | XMS_ITS | Encounter Summary ---
:1940 Author Organization [facility] [place] [address] Care Team Providers Name Role Phone Juhi Howell APRN Primary Care Provider Encounter Details Date Type Department Care Team Description 2010 Orders Only Lab [facility] Janneth Orlando MD [facility] Jim coon [place] [address] [place] [address] [phone] (Wo rk) Social History Tobacco Use Types [...] Team Description 04/13/2023 Hospital Encounter Gastroenterology Janneth Orlando MD [facility] ER GASTROENTEROLOGY DEPT. [place], [place] [address] (Wo rk) Scheduled Procedures Name Priority Associated Diagnoses Date/Time COLONOSCOPY, DIAGNOSTIC 5 yr surv from 04/12/18 documented as of this encounter Procedures Procedure Name Priority Date/Time Associated Diagnosis Comme nts SURGICAL PATHOLOGY Routine 2010 2:43 PM Res ults for this REPORT EST procedure are i n the results section. documented in this encounter Results PATHOLOGY SURGICAL PATHOLOGY FINAL REPORT (2010 2:43 PM EST) [facility] gist Method Time Signature Surgical CERNER Pathology ? [facility] Report ? Provider: ?? Janneth ORLANDO ?Pt. Name: ?? LISA DUNN ? Acc #: ?[id number] ?Pt. MRN: ?[id number] ? Col Date: ?? 09/09/20 10 ?/Sex: ?1940,(70 years),Male ? Rec Date: ?? 2010 ?LOC: ?4T ? SURGICAL PATHOLOGY ? ---Pathologic Diagnosis--- ? Endoscopic biopsies - ? A. Gastric hyperplastic polyps. ? B. Squamous esophageal and specialized metaplastic co lumnar mucosa ? consistent with Landers's esophagus. No dysplasia is seen. ? CR-0 ? 09/13/10 ? AAS ? 09/13/10 Verified by: ? Georgie King MD ? Pathologist ? (Electronic Si gnature) ? The attending pathologist whose signature appears o n this report has ? reviewed all diagnostic slides and has edited the augie ss and/or ? microscopic portion of the report in rendering the fi nal pathologic ? diagnosis. ? ---Microscopic Description--- ? Slides reviewed, microscopic description not recorded . ? ---Gross Description--- ? A - Labeled/Fixative: Polyps gastric body, formalin. ? Qty/Size/Weight: ?Three, averaging 0.3 x 0.2 x 0.2 cm. ? Tissue Description: ?? Soft, red-miner tissues. ? Sections/Processing: ??(T1) ? B - Labeled/Fixative: Mucosal biopsies, distal esoph 36-38 cm; formalin. ? Qty/Size/Weight: ?Multiple, averaging 0.2 cm in greatest diameter. ? Tissue Description: ?? Soft, pink-miner tissues, focall y hemorrhagic. ? Sections/Processing: ??(T2) ??aje/PPS ? ---Clinical Information--- ? Specimen Submitted: ? A - Polyps, gastric body ? B - Mucosal biopsies, distal esop 36-38 cm ? Clinical History: ? 70-yr-old for Landers's surveillance ? [facility] ? Provider: ?? Janneth ORLANDO ?Pt. Name: ?? LISA DUNN ? Acc #: ?[id number] ?Pt. MRN: ?[id number] ? Col Date: ?? 09/09/20 10 ?/Sex: ?1940,(70 years),Male ? Rec Date: ?? 2010 ?LOC: ?4T ? SURGICAL PATHOLOGY ? Clinical Diagnosis: ? Landers's surveillance Specimen (Source) Anatomical Collection Method Collection Time Re ceived Time Location / / Volume Laterality 2010 2:43 PM EST L Jose Orlando MD PATHOLOGY/CYTOLOGY ORDERABLE S Performing Organization Address City/State/[place] [address] [facility] documented in this encounter Visit Diagnoses Not on filedocumented in this encounter Care Teams Green Energy Marketing Analyst Relationship Specialty Start Date End Date Juhi Howell, GLUE SPREADING MACHINE OPERATOR PCP - General 09/07/10 04/19/15 [address] [place] [address] documented as of this encounter
--- OUTSIDE RECORDS SUMMARY | 2022-08-11 01:26 | XMS_ITS | Encounter Summary ---
:1940 Author Organization [facility] Address [facility] [place] [address] Care Team Providers Name Role Phone Demarco Lopez MD Primary Care Provider [phone] Encounter Details Date Type Department Care Team Description 11/16/2015 Surgery G[facility]ology at [facility] Janneth Schwartz, [facility] Jim coon MD [address]) [place] [address] [facility] [phone] GASTROENTEROLOGY DEPT. [place], [place] [address] Social History Tobacco Use Types [...] Sign Reading Time Taken Comments Blood Pressure 119/56 11/16/2015 8:00 AM EST Pulse 52 11/16/2015 8:00 AM EST Temperature - - Respiratory Rate 17 11/16/2015 8:00 AM EST Oxygen Saturation 95% 11/16/2015 8:00 AM EST Inhaled Oxygen Concentration - - [...] WHEN SHOULD YOU CALL FOR HELP? Call [phone] anytime you think that you need emergency [...] better as expected. Sunday-Sunday Same Day Endo [phone]-8p Otherwise contact [phone] and ask to speak to the advertising inserter contractor buyer Follow-up care is a cabello part of [...] Schwartz MD - 11/16/2015 8:43 AM EST [facility] Operative Note Patient Name: Shailesh Trevino : [id number] MR#: [id number] Case Date: 11/16/2015 Surgeon: Surgeon(s) and Role: [...] Gastroenterology Janneth Schwartz MD [facility] DR GASTROENTEROLOGY DEPT. [place], [place] [address] (Wo rk) Scheduled Procedures Name [...] gastric polyp s ENDOSCOPY EST schedule in Feb EGD WITH BIOPSY 11/16/2015 8:10 AM gastric [...] Surgical Pathology Report (11/16/2015 8:43 AM EST) [facility] Method Time Signature Surgical [id number] ? Location: [facility] Report The signing pathologist has (i) examined [...] of tis gin. Sections/Processing: Inked and sectioned. ??(T13)[facility] Specimen (Source) Anatomical Collection Method Collection Time Re ceived Time Location / / Volume Laterality 11/16/2015 8:43 AM EST L Jose Schwartz MD PATHOLOGY/CYTOLOGY ORDERABLE S Performing Organization Address City/[facility]/ZIP Code Phon e Number [address] Specimen to Pathology (surgical or derm) (11/16/2015 8:43 AM EST) Specimen Anatomical Collection Method Collection Time Receive d Time (Source) Location / / Volume Laterality AP Specimen 11/16/2015 8:43 AM 6 8:43 EST AM EST Narrative [facility] LABORAT ORY - 11/16/2015 8:43 AM EST Specimen requisition ordered. ??Separate Pathology report to follow L Jose Schwartz MD PATHOLOGY/CYTOLOGY ORDERABLE S Performing Organization Address City/[facility]/[place] [address] VIDEO CAPSULE ENDOSCOPY (11/16/2015 8:00 AM EST) [facility] gist Method Time Signature VIDEO CAPSULE [facility] ENDOSCOPY Endoscopy Patient Name: Shailesh Trevino ? Procedure Date: 11/16/2015 8:00 AM ? Date of : 1940 ? Age: 75 ? Order #: [id number] ? Procedure: ? Video capsule endoscopy Indications: [...] Component Value Ref Test Analysis Performed At [facility] Method Time Signature UPPER GI [facility] [employer] ENDOSCOPY Endoscopy Patient Name: Shailesh Trevino ? Procedure Date: 11/16/2015 7:35 AM ? Date of : 1940 ? Age: 75 ? Order #: [id number] ? Procedure: ? Upper GI endoscopy Indications: [...] reactions. The ? Endoscope was introduced thro h the ? mouth, and advanced to the [...] Rate Site fentaNYL 50 mcg/mL multi-dose Given 11/16/2015 8:13 AM EST 50 mc g injection ONCE PRN, Starting on Sun11/16/15 at 0753, Until Sun11/16/15 at 1159, Intra-Operative (Intra-Procedure), Routine Given 11/16/2015 7:57 AM EST 50 mcg Given 11/16/2015 7:53 AM EST 50 mcg midazolam (PF) (VERSED) 1 mg/mL multi-dose Given 11/16/2015 8:13 AM EST 1 mg injection ONCE PRN, Starting on Sun11/16/15 at 0753, Until Sun11/16/15 at 1159, Intra-Operative (Intra-Procedure), Routine Given 11/16/2015 8:08 AM EST 1 mg Given 11/16/2015 7:57 AM EST 1 mg documented in this encounter Active and Recently Administered Medications Times are shown in EST. PRN Medication Order 11/14/2015 11/15/2015 11/16/2015 fentaNYL 50 mcg/mL multi-dose injection (CANCELED) 0753 (Given - Provider: Sony Chaney, RN)0757 (Given - Provider: Sony Chaney, RN)0813 (Given - Provider: Sony Chaney, RN) ONCE PRN, Starting 11/16/15 at 0753, Until Tu11/16/15 at 1159, Intra- Operative (Intra-Procedure), Routine midazolam (PF) (VERSED) 1 mg/mL multi-dose injection (CANCELED) 0753 (Given - Provider: Sony Chaney RN)0757 (Given - Provider: Sony Chaney RN)0808 (Given - Provider: Sony Chaney RN)0813 (Given - Provider: Sony Chaney, RN) ONCE PRN, Starting 11/16/15 at 0753, Until Sun11/16/15 at 1159, Intra- Operative (Intra-Procedure), Routine documented in this encounter Care Teams Beverage Steward Relationship Specialty Start Date End Date Demarco Lopez MD PCP - General 04/20/[address] [place] [address] [address] [place] [address] documented as of this encounter
--- OUTSIDE RECORDS SUMMARY | 2022-08-11 01:26 | XMS_ITS | Encounter Summary ---
:1940 Author Organization [facility] [place] [address] Care Team Providers Name Role Phone Demarco Lopez MD Primary Care Provider [phone] Reason for Visit Reason Comments Medication Refill Encounter Details Date Type Department Care Team Description 08/22/2016 Refill Gastroenterology at [facility] Janneth Schwartz MD [facility] [place] [address] GASTROENTEROLOGY DEPT. [phone] [place], [place] [address] (Wo rk) Social History Tobacco [...] Hospital Encounter Gastroenterology Janneth Schwartz MD [facility] GASTROENTEROLOGY DEPT. [place], [place] [address] (Wo rk) Scheduled Procedures Name Priority Associated Diagnoses Date/Time COLONOSCOPY, DIAGNOSTIC 5 yr surv from 04/12/18 documented as of this encounter Visit Diagnoses Not on filedocumented in this encounter Care Teams Cross Tie Tram Loader Relationship Specialty Start Date End Date Demarco Lopez MD PCP - General 04/20/[address] [place] [address] documented as of this encounter
--- OUTSIDE RECORDS SUMMARY | 2022-08-11 01:26 | XMS_ITS | Encounter Summary ---
:1940 Author Organization [facility] [place] [address] Care Team Providers Name Role Phone Juhi Howell APRN Primary Care Provider Encounter Details Date Type Department Care Team Description 2010 Procedure visit Gastroenterology at [facility] Janneth Schwartz, [facility] [place] [address] [facility] [phone] GASTROENTEROLOGY DEPT. [place], [place] [address] Social History Tobacco Use Types [...] Encounter Gastroenterology Janneth Schwartz MD [facility] GASTROENTEROLOGY DEPT. [place], [place] [address] (Wo rk) Scheduled Procedures Name Priority Associated Diagnoses Date/Time COLONOSCOPY, DIAGNOSTIC 5 yr surv from 04/12/18 documented as of this encounter Visit Diagnoses Not on filedocumented in this encounter Care Teams Powerhouse Electrician Relationship Specialty Start Date End Date Juhi Howell APRN PCP - General 09/07/10 04/19/15 [address] [place] [address] documented as of this encounter
--- OUTSIDE RECORDS SUMMARY | 2022-08-11 01:26 | XMS_ITS | Encounter Summary ---
:1940 Author Organization [facility] [place] [address] Care Team Providers Name Role Phone Demarco Lopez MD Primary Care Provider [phone] Encounter Details Date Type Department Care Team Description 10/01/2015 Orders Only [facility] Demarco Lopez MD [id number] [place] [id number] [phone] Social History Tobacco Use Types Packs/Day Years [...] place to sleep or slept in a nursing home (including now)? Sex Assigned at Date Recorded Not on file documented as of this encounter Plan of Treatment Upcoming Encounters Date Type Specialty Care Team Description 04/13/2023 Hospital Encounter Gastroenterology Janneth Schwartz MD [facility] GASTROENTEROLOG[facility] DEPT. [place], [place] [address] (Wo rk) Scheduled Procedures Name Priority Associated Diagnoses Date/Time COLONOSCOPY, DIAGNOSTIC 5 yr surv from 04/12/18 documented as of this encounter Procedures Procedure Name Priority Date/Time Associated Diagnosis Comme nts COLONOSCOPY Routine 10/01/2015 1:53 PM Results f or this EST procedure are i n the results section. UPPER GI ENDOSCOPY Routine 10/01/2015 1:50 PM Res ults for this EST procedure are i n the results section. documented in this encounter Results COLONOSCOPY (10/01/2015 1:53 PM EST) [facility] Method Time Signature COLONOSCOPY [facility] Endoscopy Patient Name: Shailesh Trevino ? Procedure Date: 10/01/2015 1:53 PM ? Date of : 1940 ? Age: 75 ? Order #: [id number] ? Procedure: ? Colonoscopy Indications: ? Iron deficiency anemia Providers: ? LTamara Schwartz MD, Hussein Arcos ? BRENDA Dillard, Edilma Mills MD: ?Demarco Lopez MD Medicines: ? Midazolam 2 mg IV, Fentanyl 100 ? micrograms IV, plus residual ? medication [...] Examination: normal. ASA Grad e ? Assessment: III - A patient w ith ? severe systemic disease. Afte r ? reviewing the risks and benef its, the ? patient was deemed in satisfa ctory ? condition to undergo the proc edure. ? The anesthesia plan was to us e ? moderate sedation / analgesia ? (conscious sedation). Immedia tely ? prior to administration of ? medications, the patient was ? re-assessed for adequacy to r eceive [...] Th e ? colonoscopy was performed wit alexiaut ? difficulty. The patient sadiq ated the ? procedure well. The quality o f the ? bowel preparation was good. S cope ? withdrawal time was 17 minute s. ? Findings: ? The digital rectal exam findings include a small ? prostate nodule on the left lobe. ? Multiple small and large-mouthed diverticula were ? found in the sigmoid colon. ? A 3 mm polyp was found in the rectum. The polyp was ? sessile. The polyp was removed with a cold snare. ? Resection and retrieval were complete. ? Three sessile polyps were found at the hepatic ? flexure. The polyps were 3 to 9 mm in size. Two small ? polyps were removed with a cold snare, and the 9 mm ? polyp was removed with a hot snare. Resection and ? retrieval were complete. ? The terminal ileum appeared normal. ? Impression: ?- There were no sources of chronic ? blood loss seen on this exam. ? - A prostate nodule found on digital ? rectal exam. ? - Moderate diverticulosis in the ? sigmoid colon. ? - One 3 mm polyp in the rectu m. ? Resected and retrieved. ? - Three 3 to 9 mm polyps at t he ? hepatic flexure. Resected and ? retrieved. ? - The examined portion of the ileum ? was normal. Recommendation: ?- Suspect the gastric polyps as the ? most likely source of blood l oss. ? - Recommend video small bowel capsule ? to rule out other mid small b owel ? sources. ? - Recommend replacing iron. ? - Await pathology. ? - Follow-up with Dr. Lopez ? regarding prostate nodule. ? LTamara Schwartz MD 10/01/2015 3:24 PM Number of Addenda: 0 Note Initiated On: 10/01/2015 1:53 PM Specimen (Source) Anatomical Collection Method Collection Time Re ceived Time Location / / Volume Laterality 10/01/2015 1:53 PM EST Demarco Lopez MD GENERAL SURGICAL ORDERABLES Performing Organization Address [facility]/State/[facility] Code Phon e Number [facility] UPPER GI ENDOSCOPY (10/01/2015 1:50 PM EST) Component Value Ref Test Analysis Performed At [facility] Method Time Signature UPPER GI [facility] ENDOSCOPY Endoscopy Patient Name: Shailesh Trevino ? Procedure Date: 10/01/2015 1:50 PM ? Date of : 1940 ? Age: 75 ? Order #: [id number] ? Procedure: ? Upper GI endoscopy Indications: ? Iron deficiency anemia Providers: ? Annie Schwartz MD, Edilma Valencia ? Tonia Mills MD: ?Demarco Lopez MD Medicines: ? Midazolam 4 mg IV, Fentanyl [...] Examination: normal. ASA Grad e ? Assessment: III - A patient w ith ? severe systemic disease. Afte r ? reviewing the risks and benef its, the ? patient was deemed in satisfa ctory ? condition to undergo the proc edure. ? The anesthesia plan was to us e ? moderate sedation / analgesia ? (conscious sedation). Immedia tely ? prior to administration of ? medications, the patient was ? re-assessed for adequacy to r eceive [...] out ? difficulty. ? Findings: ? A hiatus hernia was found. The proximal extent of the ? gastric folds (end of tubular esophagus) was 37 cm ? from the incisors. The hiatal narrowing was 39 cm ? from the incisors. The Z-line was 36 cm from the ? incisors. ? The esophagus and gastroesophageal junction were ? examined with white light and narrow band imaging ? (NBI) from a forward view and retroflexed position. ? There were esophageal mucosal changes suggestive of ? short-segment Landers's esophagus, extending from the ? upper extent of the gastric folds which were at 37 cm ? from the incisors to the Z-line which was at 36 cm ? from the incisors. Scattered islands of squamous ? mucosa were present. The maximum longitudinal extent ? of these esophageal mucosal changes was 1 cm in ? length. Mucosa was biopsied with a cold ? large-capacity forceps for histology in 4 quadrants. ? Multiple medium sessile polyps were found in the ? gastric fundus and in the gastric body. In the body, ? they were up to 1 cm in size with an exudative cap ? and an appearance typical of inflamed benign fundic ? gland polyps. Biopsies were taken with a cold forceps ? for histology. ? A single 3 mm sessile polyp was found in the duodenal ? bulb. The polyp was removed with a cold biopsy ? forceps. Resection and retrieval were complete. ? Biopsies for histology were taken with a cold forceps ? in the entire duodenum for evaluation of celiac ? disease. ? Impression: ?- Hiatus hernia. ? - Esophageal mucosal changes ? suggestive of short-segment B arrett's ? esophagus. Biopsied. ? - Multiple likely benign infl arden ? gastric fundic gland polyps. These ? are large enough to be a pote ntial ? cause of chronic blood losses . ? Biopsied. ? - A single duodenal polyp. Re sected ? and retrieved. ? - Biopsies were taken with a cold ? forceps for evaluation of dipak iac ? disease. Recommendation: ?- Await pathology results. ? - Perform a colonoscopy today . ? L. Jose Schwartz MD 10/01/2015 2:27 PM Number of Addenda: 0 Note Initiated On: 10/01/2015 1:50 PM Specimen (Source) Anatomical Collection Method Collection Time Re ceived Time Location / / Volume Laterality 10/01/2015 1:50 PM EST Demarco Lopez MD GENERAL SURGICAL ORDERABLES Performing Organization Address City/State/ZIP Code Phon e Number [facility] documented in this encounter Visit Diagnoses Not on filedocumented in this encounter Care Teams Supervisor Fireworks Assembly Relationship Specialty Start Date End Date Demarco Lopez MD PCP - General 04/20/[address] [place] [address] documented as of this encounter
--- OUTSIDE RECORDS SUMMARY | 2022-08-11 01:26 | XMS_ITS | Encounter Summary ---
:1940 Author Organization [facility] [place] [address] Care Team Providers Name Role Phone Demarco Lopez MD Primary Care Provider [phone] Encounter Details Date Type Department Care Team Description 10/01/2015 Surgery Gastroenterology at [facility] Janneth Schwartz UPPER GASTROINTESTINAL [facility] Jim Garcia MD ENDOSCOPY,[place] [address] ONE MEDICAL SINGLE OR MULTIPLE ([facility] [phone] Arauz) [place] [address] Social History Tobacco Use Types Packs/Day Years [...] Sign Reading Time Taken Comments Blood Pressure 122/56 10/01/2015 2:15 PM EST Pulse 65 10/01/2015 2:15 PM EST Temperature - - Respiratory Rate 15 10/01/2015 2:15 PM EST Oxygen Saturation 97% 10/01/2015 2:15 PM EST Inhaled Oxygen Concentration - - Weight 83.9 kg (185 lb) 10/01/2015 1:12 PM EST Height - - Body Mass Index 28.13 09/30/2013 11:25 AM EST documented in this encounter Discharge Instructions Discharge InstructionsSony Chaney RN - 10/01/2015 4:00 PM EST Colonoscopy and polyp removal What to expect [...] what you choose to start with ?? A soft diet may be helpful for the next 3 days as this may help to keep your stools soft. ?? Drink plenty of fluids ( unless your doctor has told you not to). Medicines Avoid medicines that influence the way [...] to be checked. Sunday-Sunday Same Day Endo [phone] 7a-8p Otherwise contact [phone] and ask to speak to the dredge mate telecommunication operator Follow up care is a cabello part [...] 09/08/20 15 09/14/2021 0.4 mg Tablet, Sublingual pantoprazole (PROTONIX) TAKE 1 TABLET DAILY 90 [...] encounter H&P Notes Janneth Schwartz MD - 10/01/2015 1:50 PM EST Gastroenterology and Hepatology Pre-Procedure History and Physical Exam Procedure: EGD: Colonoscopy: Indication: iron deficiency anemia Patient Active Problem List Diagnosis Code ??? 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 Psoriasis 696.1 ??? Inflamed seborrheic keratosis 702.11 ??? AK (actinic keratosis) 702.0 ??? Other seborrheic keratosis 702.19 EXAM: HEENT: Airway examined, oropharynx clear Mallampati Score: II (soft palate, uvula, fauces visible) LUNGS: Clear to auscultation HEART: Regular rate and rhythm, normal S1, S2 ABDOMEN: Normal bowel sounds, soft, non tender, non distended, A/P Proceed with the planned endoscopic procedure. ASA 3 - Patient with moderate systemic disease with functional limitations Sedation Plan: moderate (conscious sedation) Risks and benefits of the procedure explained to the patient. Consent signed. documented in this encounter Miscellaneous Notes Op Note - Janneth Schwartz MD - 10/01/2015 3:17 PM EST [facility] Operative Note Patient Name: Shailesh Trevino : [id number] MR#: [id number] Case Date: 10/01/2015 Surgeon: Surgeon(s) and Role: * Janneth Schwartz MD - Primary Preoperative diagnosis: JUANITA Postoperative diagnosis: * No post-op diagnosis entered * Procedure(s): UPPER GASTROINTESTINAL ENDOSCOPY,WITH BIOPSY SINGLE OR MULTIPLE COLONOSCOPY, POLYPECTOMY, REMOVAL LESION BY SNARE Please see the Provation procedure report in the Procedures tab in eDH. documented in this encounter Plan of Treatment Upcoming Encounters Date Type Specialty Care Team Description 04/13/2023 Hospital Encounter Gastroenterology Janneth cShwartz MD [facility] [address] GASTROENTEROLOGY DEPT. [place], [place] [address] (Wo rk) Scheduled Procedures Name Priority Associated Diagnoses Date/Time COLONOSCOPY, DIAGNOSTIC 5 yr surv from 04/12/18 documented as of this encounter Procedures Procedure Name Priority Date/Time Associated Comments Diagnosis SPECIMEN TO PATHOLOGY Routine 10/01/2015 3:27 Res ults for this PM EST procedure are i n the results section. SPECIMEN TO PATHOLOGY Routine 10/01/2015 3:27 Res ults for this PM EST procedure are i n the results section. SPECIMEN TO PATHOLOGY Routine 10/01/2015 3:27 Res ults for this PM EST procedure are i n the results section. SPECIMEN TO PATHOLOGY Routine 10/01/2015 3:27 Res ults for this PM EST procedure are i n the results section. SPECIMEN TO PATHOLOGY Routine 10/01/2015 3:27 Res ults for this PM EST procedure are i n the results section. SPECIMEN TO PATHOLOGY Routine 10/01/2015 3:27 Res ults for this PM EST procedure are i n the results section. SURGICAL PATHOLOGY Routine 10/01/2015 3:26 Result s for this REPORT PM EST procedure are i n the results section. COLONOSCOPY, 10/01/2015 1:50 JUANITA POLYPECTOMY, REMOVAL PM EST LESION BY SNARE (WRVU 4.67) UPPER GASTROINTESTINAL 10/01/2015 1:50 JUANITA ENDOSCOPY,WITH BIOPSY PM EST SINGLE OR MULTIPLE (WRVU 2.49) documented in this encounter Results Specimen to Pathology (surgical or derm) (10/01/2015 3:27 PM EST) Specimen Anatomical Collection Method Collection Time Receive d Time (Source) Location / / Volume Laterality AP Specimen 10/01/2015 3:27 PM 6 3:27 EST PM EST Narrative CERNER MILLENNIUM - 10/01/2015 3:[address] Specimen requisition ordered. ??Separate Pathology report to follow Janneth Schwartz MD PATHOLOGY/CYTOLOGY ORDERABLE S Performing Organization Address City/[facility] [place] [address] CERNER MILLENNIUM Specimen to Pathology (surgical or derm) (10/01/2015 3:27 PM EST) Specimen Anatomical Collection Method Collection Time Receive d Time (Source) Location / / Volume Laterality AP Specimen 10/01/2015 3:27 PM 6 3:27 EST PM EST Narrative CERNER MILLENNIUM - 10/01/2015 3:[address] Specimen requisition ordered. ??Separate Pathology report to follow L Jose Schwartz MD PATHOLOGY/CYTOLOGY ORDERABLE S Performing Organization Address City/[facility]/[place] [address] CERNER MILLENNIUM Specimen to Pathology (surgical or derm) (10/01/2015 3:27 PM EST) Specimen Anatomical Collection Method Collection Time Receive d Time (Source) Location / / Volume Laterality AP Specimen 10/01/2015 3:27 PM 6 3:27 EST PM EST Narrative CERNER MILLENNIUM - 10/01/2015 3:[address] Specimen requisition ordered. ??Separate Pathology report to follow L Jose Schwartz MD PATHOLOGY/CYTOLOGY ORDERABLE S Performing Organization Address City/[facility] [place] [address] CERNER MILLENNIUM Specimen to Pathology (surgical or derm) (10/01/2015 3:27 PM EST) Specimen Anatomical Collection Method Collection Time Receive d Time (Source) Location / / Volume Laterality AP Specimen 10/01/2015 3:27 PM 6 3:27 EST PM EST Narrative CERNER MILLENNIUM - 10/01/2015 3:[address] Specimen requisition ordered. ??Separate Pathology report to follow L Jose Schwartz MD PATHOLOGY/CYTOLOGY ORDERABLE S Performing Organization Address [facility]/[place] [address] CERNER MILLENNIUM Specimen to Pathology (surgical or derm) (10/01/2015 3:27 PM EST) Specimen Anatomical Collection Method Collection Time Receive d Time (Source) Location / / Volume Laterality AP Specimen 10/01/2015 3:27 PM 6 3:27 EST PM EST Narrative CERNER MILLENNIUM - 10/01/2015 3:[address] Specimen requisition ordered. ??Separate Pathology report to follow L Jose Schwartz MD PATHOLOGY/CYTOLOGY ORDERABLE S Performing Organization Address [facility] [place] [address] CERNER MILLENNIUM Specimen to Pathology (surgical or derm) (10/01/2015 3:27 PM EST) Specimen Anatomical Collection Method Collection Time Receive d Time (Source) Location / / Volume Laterality AP Specimen 10/01/2015 3:27 PM 6 3:27 EST PM EST Narrative CERNER MILLENNIUM - 10/01/2015 3:[address] Specimen requisition ordered. ??Separate Pathology report to follow L Jose Schwartz MD PATHOLOGY/CYTOLOGY ORDERABLE S Performing Organization Address [facility] [place] [address] CERNER MILLENNIUM Surgical Pathology Report (10/01/2015 3:26 PM EST) Component Value Ref Test Analysis Performed At Patholo gist Range Method Time Signature Surgical [id number] ? Location: [facility] The signing pathologist has (i) examined the relevant preparation(s) for the specimen(s) and (ii) rendered or confirmed the diagnosis(es) . . ?Surgic al Pathology DIAGNOSIS A - Distal esophagus, biopsies: Squamous esophageal and card iac mucosa with metaplastic goblet cells, consistent with Landers metaplasia if supported by corresponding endoscopic findings. No dysplasia is seen. B - Gastric polyps, biopsy: Gastric hyperplastic polyps. C - Duodenal polyp, polypectomy: Duodenal hyperplastic polyp. D - Duodenum, biopsies: Duodenal mucosa within dara l limits, including preserved villous architecture. E - Hepatic flexure polyps, polypectomy: Tubular adenomas. F - Rectal polyp, polypectomy: Tubular adenoma. CR-PX 10/04/15 BJM 10/05/15 Verified by: ? Georgie King MD ?Pathologist ?(Electronic Signature ) The attending pathologist whose signature appears on this re port has reviewed all diagnostic slides and has edited the gross and/ or microscopic portion of the report in jeyson dering the final pathologic diagnosis. CLINICAL INFORMATION Specimen Submitted: A - Mucosal biopsies-distal esophagus B - Biopsies-gastric poly[s C - Polyp-duodenum D - Non-targeted mucosal biiopsies-duodenum E - Three polyps-hepatic flexure F - Polyp-rectum Clinical History: 75-year-old with iron deficiency anemia and history of [place] tt's Clinical Diagnosis: 75-year-old with iron deficiency anemia and history of [place] tt's SPECIMEN PROCESSING A - Labeled/Fixative: Mucosal biopsies of distal esophagus, formalin. Quantity/Size: Three, 0.2-0.3 cm. Tissue Description: Soft, miner-pink tissue. Sections/Processing: (T1) . SPECIMEN PROCESSING B - Labeled/Fixative: Biopsies gastric polyps, formalin. Quantity/Size: Three, 0.3 cm. Tissue Description: Soft, miner-pink tissue. Sections/Processing: (T1) C - Labeled/Fixative: Polyp duodenum, formalin. Quantity/Size: Four, 0.1-0.3 cm. Tissue Description: Soft, miner-pink tissue. Sections/Processing: (T1) D - Labeled/Fixative: Non-targeted mucosal biopsies, formali n. Quantity/Size: Fragments, 0.2-0.3 cm. Tissue Description: Soft, miner-pink tissue. Sections/Processing: (T2) E - Labeled/Fixative: Three polyp hepatic flexure, formalin. Quantity/Size: Three, from 0.3 cm to 0.9 x 0.6 x 0.5 cm. Tissue Description: Polypoid, miner-pink soft tissues. Sections/Processing: The sma ller tissues are submitted in cassette E1. The largest, polypoid fragments serially sectioned and submitted in E2. (T2) F - Labeled/Fixative: Polyp rectum, formalin. Quantity/Size: Single, 0.5 x 0.3 x 0.2 cm. Tissue Description: Polypoid miner-pink so ft tissue admixed with bowel contents. Sections/Processing: (T1) ??pps Specimen (Source) Anatomical Collection Method Collection Time Re ceived Time Location / / Volume Laterality 10/01/2015 3:26 PM EST L Jose Schwartz MD PATHOLOGY/CYTOLOGY ORDERABLE S Performing Organization Address City/State/ZIP Code Phon e Number [address] LABORATORY [facility] documented in this encounter Visit Diagnoses Not on filedocumented in this encounter Administered Medications Inactive Administered Medications - up to 3 most recent administrations Medication Order MAR Action Action Date Dose Rate Site fentaNYL 50 mcg/mL multi-dose Given 10/01/2015 2:32 PM EST 50 mc g injection ONCE PRN, Starting on Sun10/01/15 at 1355, Until Sun10/01/15 at 1600, Intra-Operative (Intra-Procedure), Routine Given 10/01/2015 2:25 PM EST 50 mcg Given 10/01/2015 2:02 PM EST 50 mcg lactated ringers infusion New Bag 10/01/2015 1:20 PM EST 100 mL/hr 100 mL/hr 100 mL/hr, Intravenous, CONTINUOUS, Starting on Sun10/01/15 at 1330, Until Sun10/01/15 at 1600, Endoscopy (Day of Procedure) midazolam (PF) (VERSED) 1 mg/mL multi-dose Given 10/01/2015 2:32 PM EST 1 mg injection ONCE PRN, Starting on Sun10/01/15 at 1355, Until Sun10/01/15 at 1600, Intra-Operative (Intra-Procedure), Routine Given 10/01/2015 2:25 PM EST 1 mg Given 10/01/2015 2:08 PM EST 1 mg documented in this encounter Active and Recently Administered Medications Times are shown in EST. Continuous Medication Order 09/29/2015 09/30/2015 10/01/2015 lactated ringers infusion (CANCELED) 1320 (New Bag - Provider: Cookie Harrell RN) 100 mL/hr, at 100 mL/hr, Intravenous, CO NTINUOUS, Starting Sun10/01/15 at 1330, Until Sun10/01/15 at 1600, Endo (Day of Procedure) PRN Medication Order 09/29/2015 09/30/2015 10/01/2015 fentaNYL 50 mcg/mL multi-dose injection (CANCELED) 1355 (Given - Provider: Edilma Mills RN)1358 (Given - Provider: Edilma Mills RN)1402 (Given - Provider: Edilma Mills RN)1425 (Given - Provider: Edilma Mills RN)1432 (Given - Provider: Edilma Mills RN) ONCE PRN, Starting Sun10/01/15 at 1355, U ntil Sun10/01/15 at 1600, Intra-Operative (Intra-Procedure), Routine midazolam (PF) (VERSED) 1 mg/mL multi-dose injection (CANCELED) 1355 (Given - Provider: Edilma Mills RN)1358 (Given - Provider: Edilma Mills RN)1402 (Given - Provider: Edilma Mills RN)1408 (Given - Provider: Edilma Mills RN)1425 (Given - Provider: Edilma Mills RN) ONCE PRN, Starting Sun10/01/15 at 1355, U ntil Sun10/01/15 at 1600, Intra-Operative (Intra-Procedure), Routine 1432 (Given - Provider: Edilma Mills RN) documented in this encounter Care Teams Gum Dipper Relationship Specialty Start Date End Date Demarco Lopez MD PCP - General 04/20/[address] [place] [address] [address] [place] [address] documented as of this encounter
--- OUTSIDE RECORDS SUMMARY | 2022-08-11 01:26 | XMS_ITS | Encounter Summary ---
:1940 Author Organization [facility] [place] [address] Care Team Providers Name Role Phone Demarco Lopez MD Primary Care Provider [phone] Reason for Visit Reason Comments Medication Refill Encounter Details Date Type Department Care Team Description 05/22/2017 Refill Gastroenterology at [facility] Janneth Schwartz MD [facility] [place] [address] GASTROENTEROLOGY DEPT. [phone] [place], [place] [address] (Wo rk) Social History Tobacco [...] to sleep or slept in a senior care (including now)? Sex Assigned at Date Recorded Not on file documented as of this encounter Plan of Treatment Upcoming Encounters Date Type Specialty Care Team Description 04/13/2023 Hospital Encounter Gastroenterology Janneth Schwartz MD [facility] GASTROENTEROLOGY DEPT. [place], [place] [address] (Wo rk) Scheduled Procedures Name Priority Associated Diagnoses Date/Time COLONOSCOPY, DIAGNOSTIC 5 yr surv from 04/12/18 documented as of this encounter Visit Diagnoses Not on filedocumented in this encounter Care Teams Manager Regulatory Relationship Specialty Start Date End Date Demarco Lopez MD PCP - General 04/20/[address] [place] [address] documented as of this encounter
--- OUTSIDE RECORDS SUMMARY | 2022-08-11 01:26 | XMS_ITS | Encounter Summary ---
:1940 Author Organization [facility] [place] [address] Care Team Providers Name Role Phone Demarco Lopez MD Primary Care Provider [phone] Reason for Visit Auth/Cert Specialty Diagnoses / Procedures Referred By Contact Refer red To Contact Diagnoses 3 yr surv from 10/01/15 3yr surv Procedures PRO UPPER GI ENDOSCOPY, DIAGNOSTIC PRO COLONOSCOPY, DIAGNOSTIC EGD, UPPER GI ENDOSCOPY COLONOSCOPY, DIAGNOSTIC COLONOSCOPY, DIAGNOSTIC Referral ID Status Reason Start Date Expiration Date Visits Requ ested Visits Authorized [id number] 1 1 Encounter Details Date Type Department Care Team Description 04/12/2018 Hospital Encounter Gastroenterology at [facility] Janneth Schwartz, [facility] [place] [address] [facility] [phone] [place] GASTROENTEROLOGY DEPT. [place], [place] [address] Social History Tobacco Use Types [...] Sign Reading Time Taken Comments Blood Pressure 120/54 04/12/2018 4:50 PM EDT Pulse 53 04/12/2018 4:30 PM EDT Temperature - - Respiratory Rate 16 04/12/2018 4:50 PM EDT Oxygen Saturation 91% 04/12/2018 4:50 PM EDT Inhaled Oxygen Concentration - - [...] better as expected. Sunday-Sunday Same Day Endo [phone] 7a-8p Otherwise contact [phone] and ask to speak to the back hoe machine operator station detective Follow-up care is a [place] part of [...] to be checked. Sunday-Sunday Same Day Endo [phone] 7a-8p Otherwise contact [phone] and ask to speak to the back hoe machine operator station detective Follow up care is a [place] part [...] Hospital Encounter Gastroenterology Janneth Schwartz MD [facility] [address] GASTROENTEROLOGY DEPT. [place], [place] [address] (Wo rk) Scheduled Procedures Name [...] PM 8 4:14 EDT PM EDT Narrative [facility] - 04/12/2018 4:14 PM EDT Specimen requisition ordered. ??Separate Pathology report to follow Janneth Schwartz MD PATHOLOGY/CYTOLOGY ORDERABLE S Performing Organization Address [facility]/ZIP [facility] [place] [address] Specimen to Pathology (04/12/2018 4:14 PM EDT) Specimen Anatomical Collection Method Collection Time Receive d Time (Source) Location / / Volume Laterality AP Specimen 04/12/2018 4:14 PM 8 4:14 EDT PM EDT Narrative [facility] [place] 04/12/2018 4:14 PM EDT Specimen requisition ordered. ??Separate Pathology report to follow Janneth Schwartz MD PATHOLOGY/CYTOLOGY ORDERABLE S Performing Organization Address [facility] [place] [place] [address] Specimen to Pathology (04/12/2018 4:14 PM EDT) Specimen Anatomical Collection Method Collection Time Receive d Time (Source) Location / / Volume Laterality AP Specimen 04/12/2018 4:14 PM 8 4:14 EDT PM EDT Narrative [facility] [place] 04/12/2018 4:14 PM EDT Specimen requisition ordered. ??Separate Pathology report to follow Janneth Schwartz MD PATHOLOGY/CYTOLOGY ORDERABLE S Performing Organization Address [facility] [place] [address] Surgical Pathology Report (04/12/2018 3:20 PM EDT) Component Value Ref Test Analysis Performed At [facility] Range Method Time Signature Surgical [id number] ? Location: 4T; EA06; [facility] Pathology [facility]INITY Report The signing pathologist has (i) examined [...] King MD Verified: ??04/17/2018 ?Pathologist Performed at: ??-[facility] Dept. of Pathology, [place], [place] CLINICAL INFORMATION Specimen Submitted: A - [...] Organization Address City/State/[place] [address] UPPER GI ENDOSCOPY (04/12/2018 2:40 PM EDT) Component Value Ref Test Analysis Performed At [facility] Range Method Time Signature UPPER GI [facility] ENDOSCOPY Endoscopy Procedure Date: 04/12/2018 2:40 PM ? Patient Name: Shailesh Trevino ? N: [id number] ? Date of : 1940 ? Age: 77 ? Order #: [id number] ? Instrument Name: [id number] ? Procedure: ? Upper GI endoscopy Indications: [...] reactions. The ? Endoscope was [facility] the ? mouth, and advanced to the [...] procedure. ? L. Jose Schwartz MD 04/12/2018 3:45:14 PM Number of Addenda: 0 Note Initiated On: 04/12/2018 2:40 PM Specimen (Source) Anatomical Collection Method Collection Time Re ceived Time Location / / Volume Laterality 04/12/2018 2:40 PM EDT Unknown GENERAL SURGICAL ORDERABLES Performing Organization Address City/State/ZIP Code Phon e Number [facility] COLONOSCOPY (04/12/2018 2:40 PM EDT) [facility] Method Time Signature COLONOSCOPY [facility] Endoscopy Procedure Date: 04/12/2018 2:40 PM ? Patient Name: Shailesh Trevino ? Date of : 1940 ? Age: 77 ? Order #: [id number] ? Instrument Name: [id number] ? Procedure: ? Colonoscopy Indications: ? High risk colon cancer surveillance : ? Personal history of colonic p olyps Providers: ? Annie Schwartz MD, Ruth johnson, ? Chris Márquez, Finishing Wire Sawyer Referring MD: ?Demarco Lopez md Medicines: ? [...] withdrawn. Th e ? colonoscopy was performed devante faust ? difficulty. The patient sadiq ated the ? procedure well. The quality o f the ? bowel preparation was evaluat ed using ? the BBPS ([place] Bowel Prepar ation ? Scale) with scores [...] I personally performed the entire procedure. ? LTamara Schwartz MD 04/12/2018 4:26:26 PM Number of [...] MAR Action Action Date Dose Rate Site lactated Ringers infusion New Bag 04/12/2018 3:15 PM EDT 200 mL/hr 200 mL/hr 200 mL/hr, Intravenous, CONTINUOUS, Starting on Sun04/12/18 at 1515, Until Sun04/12/18 at 1705, Endoscopy (Day of Procedure) documented in this encounter Active and Recently [...] Ruth Lloyd RN)1508 (Given - Provider: Ruth Lloyd, RN)1511 (Given - Provider: Ruth Lloyd RN)1527 (Given - Provider: Ruth Lloyd RN)1549 (Given - Provider: Ruth Lloyd, RN) ONCE PRN, Starting Sun04/12/18 at 1505, Until Sun04/12/18 at 1930, Intra- Operative (Intra-Procedure), Routine 155 1 (Given - Provider: Ruth Lloyd RN) midazolam (PF) (VERSED) 1 mg/mL multi-dose injection (CANCELED) 1505 (Given - Provider: Ruth Lloyd RN)1508 (Given - Provider: Ruth Lloyd RN)1512 (Given - Provider: Ruth Lloyd RN)1516 (Given - Provider: Ruth Lloyd, RN)1527 (Given - Provider: Ruth Lloyd RN) ONCE PRN, Starting Sun04/12/18 at 1505, Until Sun04/12/18 at 1930, Intra- Operative (Intra-Procedure), Routine 153 0 (Given - Provider: Ruth Lloyd RN)1545 (Given - Provider: Ruth Lloyd RN) documented in this encounter Care Teams Grainer Machine Relationship Specialty Start Date End Date Demarco Lopez MD PCP - General 04/20/[address] [place] [address] documented as of this encounter
--- OUTSIDE RECORDS SUMMARY | 2022-08-11 01:26 | XMS_ITS | Encounter Summary ---
:1940 Author Organization [facility] [place] [address] Care Team Providers Name Role Phone Demarco Lopez MD Primary Care Provider [phone] Encounter Details Date Type Department Care Team Description 10/01/2015 Hospital Encounter Gastroenterology at [facility] Janneth Schwartz, [facility] [place] [address] [facility] [phone] [facility] [place], [place] [address] Social History Tobacco Use Types [...] Sign Reading Time Taken Comments Blood Pressure 115/59 10/01/2015 3:11 PM EST Pulse 55 10/01/2015 3:11 PM EST Temperature - - Respiratory Rate 16 10/01/2015 3:11 PM EST Oxygen Saturation 97% 10/01/2015 3:11 PM EST Inhaled Oxygen Concentration - - Weight 83.9 kg (185 lb) 10/01/2015 1:12 PM EST Height - - Body Mass Index 28.13 09/30/2013 11:25 AM EST documented in this encounter Discharge Instructions Discharge Sony Mercado RN - 10/01/2015 4:00 PM EST Colonoscopy [...] to be checked. Sunday-Sunday Same Day Endo [phone] 7a-8p Otherwise contact [phone] and ask to speak to the assistant field hockey coach magnetic resonance imaging director Follow up care is a cab[place] part [...] Schwartz MD - 10/01/2015 3:17 PM EST [facility] Operative Note Patient Name: Shailesh Trevino : [id number] MR#: [id number] Case Date: 10/01/2015 Surgeon: Surgeon(s) and Role: [...] [facility] GASTROENTEROLOGY DEPT. [place], [place] [address] (Wo rk) Scheduled Procedures Name [...] MD PATHOLOGY/CYTOLOGY ORDERABLE S Performing Organization Address [facility]/ZIP [facility] [place] [address] CERNER MILLENNIUM Specimen to [...] MD PATHOLOGY/CYTOLOGY ORDERABLE S Performing Organization Address City/[facility]/[place] [address] CERNER MILLENNIUM Specimen to [...] MD PATHOLOGY/CYTOLOGY ORDERABLE S Performing Organization Address City/[facility]/ZIP [facility] [place] [address] CERNER MILLENNIUM Specimen to [...] MD PATHOLOGY/CYTOLOGY ORDERABLE S Performing Organization Address [facility]/[place] [address] CERNER MILLENNIUM Specimen to [...] MD PATHOLOGY/CYTOLOGY ORDERABLE S Performing Organization Address City/[facility] [place] [address] CERNER MILLENNIUM Specimen to [...] MD PATHOLOGY/CYTOLOGY ORDERABLE S Performing Organization Address [facility] [place] [address] CERNER MILLENNIUM Surgical Pathology Report (10/01/2015 3:26 PM EST) Component Value Ref Test Analysis Performed At [facility] Range Method Time Signature Surgical [id number] ? Location: [facility] The signing pathologist has (i) [...] with iron deficiency anemia and history of [place] tt's Clinical Diagnosis: 75-year-old with iron deficiency anemia and history of [place] tt's SPECIMEN PROCESSING A - Labeled/Fixative: Mucosal [...] Organization Address City/State/[place] [address] [facility] documented in this encounter Visit Diagnoses Not on filedocumented in this encounter Administered Medications Inactive Administered Medications - up to 3 most recent administrations Medication Order MAR Action Action Date Dose Rate Site lactated ringers infusion New Bag 10/01/2015 1:20 PM EST 100 mL/hr 100 mL/hr 100 mL/hr, Intravenous, CONTINUOUS, Starting on Sun10/01/15 at 1330, Until Sun10/01/15 at 1600, Endoscopy (Day of Procedure) documented in this [...] Provider: Edilma Mills RN) ONCE PRN, Starting 10/01/15 at 1355, U ntil Sun10/01/15 at 1600, Intra-Operative (Intra-Procedure), Routine midazolam (PF) (VERSED) 1 mg/mL multi-dose injection (CANCELED) 1355 (Given - Provider: Edilma Mills RN)1358 (Given - Provider: Edilma Mills RN)1402 (Given - Provider: Edilma Mills RN)1408 (Given - Provider: Edilma Mills RN)1425 (Given - Provider: Edilma Mills RN) ONCE PRN, Starting Sun10/01/15 at 1355, U ntil 10/01/15 at 1600, Intra-Operative (Intra-Procedure), Routine 1432 (Given - Provider: Edilma Mills RN) documented in this encounter Care Teams Video Software Engineer Relationship Specialty Start Date End Date Demarco Lopez MD PCP - General 04/20/[address] [place] [address] documented as of this encounter
--- OUTSIDE RECORDS SUMMARY | 2022-08-11 01:26 | XMS_ITS | Encounter Summary ---
:1940 Author Organization [facility] [place] [address] Care Team Providers Name Role Phone Demarco Lopez MD Primary Care Provider [phone] Encounter Details Date Type Department Care Team Description 10/25/2018 Refill Dermatology at [facility] Drea Sams, INSTRUMENT LENS INSPECTOR [address] [place] [address] Social History Tobacco Use Types Packs/Day Years [...] Team Description 04/13/2023 Hospital Encounter Gastroenterology Janneth Schawrtz MD [facility] DEPT. [place], [place] [address] (Wo rk) Scheduled Procedures Name Priority Associated Diagnoses Date/Time COLONOSCOPY, DIAGNOSTIC 5 yr surv from 04/12/18 documented as of this encounter Visit Diagnoses Not on filedocumented in this encounter Care Teams Croze Machine Operator Relationship Specialty Start Date End Date Demarco Lopez MD PCP - General 04/20/[address] [place] [address] documented as of this encounter
--- OUTSIDE RECORDS SUMMARY | 2022-08-11 01:26 | XMS_ITS | Encounter Summary ---
:1940 Author Organization [facility] [place] [address] Care Team Providers Name Role Phone Demarco Lopez MD Primary Care Provider [phone] Encounter Details Date Type Department Care Team Description 10/25/2018 [place] [address] Social History Tobacco Use Types Packs/Day [...] COMPLEX (B 0 2010 COMPLEX VITAMINS ORAL) triamcinolone (KENALOG) Apply to affected 80 g 1 10/2512/01/2021 0.1 % Cream itchy rash areas twice daily until clear pantoprazole (PROTONIX) TAKE 1 TABLET DAILY 90 [...] Encounter Gastroenterology Janneth Schwartz MD [facility] GASTROENTEROLOG[facility] DEPT. [place], [place] [address] (Wo rk) Scheduled Procedures Name Priority Associated Diagnoses Date/Time COLONOSCOPY, DIAGNOSTIC 5 yr surv from 04/12/18 documented as of this encounter Procedures Procedure Name Priority Date/Time Associated Diagnosis Comme nts SURGICAL PATHOLOGY Routine 10/25/2018 12:00 PM Re sults for this REPORT EST procedure are i n the results section. documented in this encounter Results Surgical Pathology Report (10/25/2018 12:00 PM EST) Component Value Ref Test Analysis Performed At [facility] Range Method Time Signature Surgical [id number] ? Location: [facility] Pathology [place] Report The signing pathologist has (i) examined the relevant preparation(s) for the [facility] specimen(s) and (ii) rendered or confirmed the diagnosis(es) . HOSPITAL LABORATORY . 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 of Pathology, [place], [place] DISCUSSION The biopsy shows marked epid ermal psoriasiform spongiotic changes with parakeratosis containing serum crust and neutrophils, superfi cial perivascular lymphocytic infiltrate with eosinophils and abundant plasma cells. There is marked exocytosis of lymphocytes into the epidermis. Immu nohistochemistry studies show that the infiltrate consists of CD3 positive T lymphocytes with mixed CD4+ and CD8+ cells, and intraepidermal CD8+ cells exceeding CD4+ cells. Immunostain for Treponema pallidum is negative. Diagnostic features of Rasmussen's disease a re not seen. This lesion appears to be inflammatory. The findings are compatible with the clinical impression of psoriasis, possibly with a superimpose d spongiotic/eczematous dermatitis such as allergic or irritant contact dermatitis. No fungi are seen in PAS- reacted sections. Clinicopathologic correlation is recommended. ADDITIONAL STUDIES Immunohistochemistry Studies: Formalin-fixed, paraffin-emb edded tissue sections of A1 are studied for CD3, CD4, CD8 and T pallidum using the polymer technique with appropriate positive and negative controls. ?The se IHC studies provide the pathologist with adjunctive diagnostic information. Ant ibody specificity has been verified by testing antibodies on a series of in-house tissues with known immunohistoche mical performance characteristics. The clinic al interpretation of any antibody positive staining or its absence is evaluated wi thin the context of clinical presentation, morphology, histopathological criteria and other diagnostic tests. CLINICAL INFORMATION Specimen Submitted: A - Skin, perineum, punch 4mm Clinical History and Diagnosis: Many month history of prurit ic bleeding erythematous patch; R/O Rasmussen's disease, psoriasis vs other? Referring Identifier: ?(not provided) SPECIMEN PROCESSING A - Labeled/Fixative: Patient demographics, formalin. Quantity/Size: ??Single, 0.4 x 0.4 x 0.4 cm. 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 Sections/Processing: Inked, bisected and entirely submitted in 1 cassette labeled A1. ??gay Specimen (Source) Anatomical Collection Method Collection Time Re ceived Time Location / / Volume Laterality 10/25/2018 12:00 PM EST Doug Castanon MD PATHOLOGY/CYTOLOGY ORDERABLE S Performing Organization Address City/State/[place] [address] documented in this encounter Visit Diagnoses Not on filedocumented in this encounter Care Teams Software Deployment Engineer Relationship Specialty Start Date End Date Demarco Lopez MD PCP - General 04/20/[address] [facility] [address] [place] [address] documented as of this encounter
--- OUTSIDE RECORDS SUMMARY | 2022-08-11 01:26 | XMS_ITS | Encounter Summary ---
:1940 Author Organization [facility] [place] [address] Care Team Providers Name Role Phone Juhi Howell APRN Primary Care Provider Encounter Details Date Type Department Care Team Description 09/30/2013 Hospital Encounter Gastroenterology at [facility] Janneth Orlando, [facility] [place] [address] [facility] [phone] [place]. [place], [place] [address] Social History Tobacco Use Types [...] Sign Reading Time Taken Comments Blood Pressure 109/42 09/30/2013 1:43 PM EST Pulse 61 09/30/2013 1:43 PM EST Temperature - - Respiratory Rate 16 09/30/2013 1:43 PM EST Oxygen Saturation 97% 09/30/2013 1:43 PM EST Inhaled Oxygen Concentration - - Weight 81.6 kg (180 lb) 09/30/2013 11:25 AM EST Height 172.7 cm (5' 8) 09/30/2013 11:25 AM EST Body Mass Index 27.37 09/30/2013 11:25 AM EST documented in this encounter Discharge Instructions Discharge InstructionsJen Martin RN - 09/30/2013 2:47 PM EST UPPER GI ENDOSCOPY WHAT TO EXPECT AFTER THE PROCEDURE Medications You may have a mild sore throat. Ice chips, popsicles, over the counter throat lozenges or spray may help numb your throat. This procedure should not cause a fever. Call your healthcare provider or seek immediate [...] You do not get better as expected. Colonoscopy and polyp removal What to expect [...] on stairs, as you may be unsteady. FOR THE NEXT 24 HRS ?? DO [...] often you need to be checked. Sunday-Sunday Clinic [phone] 8a-5p Same Day Endo [phone] 7a-8p Otherwise contact [phone] and ask to speak to the rn clinical coordinator communications technologist Follow up care is a cabello part [...] (PROTONIX) TAKE 1 TABLET DAILY 90 tablet 3 11/201206/30/2014 40 mg tabletIndications: Landers's esophagus valACYclovir (VALTREX) 1 TAKE 1 TABLET DAILY 90 tablet 3 09/14/2021 g tablet Calcipotriene (DOVONEX) Apply topically as 0 08/2412/01/2021 0.005 % Crea needed. colchicine (COLCRYS) 0.6 Take by mouth daily. 0 1 11/10/2009 12/01/2021 mg tablet SIMVASTATIN ORAL 0 2010 09/14/20 21 ibuprofen (ADVIL;MOTRIN) Take by mouth. 0 010 11/24/2021 800 mg tablet documented as of this encounter Progress Notes Jen Martin RN - 09/30/2013 2:20 PM EST slt unsteady when stand. Return to bed for nap, sm bolus flds. documented in this encounter H&P Notes Janneth Orlando MD - 09/30/2013 11:09 AM EST Gastroenterology and Hepatology Pre-Procedure History and Physical Exam Procedure: EGD: and colonoscopy Indication: Landers's surveillance and surveillance for TAs. 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 Never with dysplasia. On protonix. No dysphagia or wt loss. Patient Active Problem List Diagnosis Code ??? 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 Psoriasis 696.1 ??? Inflamed seborrheic keratosis 702.11 EXAM: HEENT: Airway examined, oropharynx clear LUNGS: Clear to auscultation HEART: Regular rate and rhythm, normal S1, S2 ABDOMEN: Normal bowel sounds, soft, non tender, non distended, A/P Proceed with the planned endoscopic procedure. Risks and benefits of the procedure explained to the patient. Consent signed. documented in this encounter Miscellaneous Notes Op Note - Janneth Orlando MD - 09/30/2013 1:09 PM EST [facility] Operative Note Patient Name: Shailesh Trevino : [id number] MR#: [id number] Case Date: 09/30/2013 Surgeon: Surgeon(s) and Role: * Janneth Orlando MD - Primary Preoperative diagnosis: 3 Y BARRETTS 5 Y TA SURVEILLANCE Postoperative diagnosis: * No post-op diagnosis entered * Procedure(s): UPPER GASTROINTESTINAL ENDOSCOPY,WITH BIOPSY SINGLE OR MULTIPLE COLONOSCOPY, POLYPECTOMY, REMOVAL LESION BY SNARE IV Conscious Sedation Please see the Provation procedure report in the Procedures tab in eDH. Miscellaneous - Provider, Scanning - 09/30/2013 11:57 AM EST documented in this encounter Plan of Treatment Upcoming Encounters Date Type Specialty Care Team Description 04/13/2023 Hospital Encounter Gastroenterology Janneth Orlando MD [facility] DR GASTROENTEROLOGY DEPT. [place], [place] [address] (Wo rk) Scheduled Procedures Name Priority Associated Diagnoses Date/Time COLONOSCOPY, DIAGNOSTIC 5 yr surv from 04/12/18 documented as of this encounter Procedures Procedure Name Priority Date/Time Associated Comments Diagnosis SURGICAL PATHOLOGY Routine 09/30/2013 1:13 Result s for this REPORT PM EST procedure are i n the results section. SPECIMEN TO PATHOLOGY Routine 09/30/2013 1:13 Res ults for this PM EST procedure are i n the results section. SPECIMEN TO PATHOLOGY Routine 09/30/2013 1:13 Res ults for this PM EST procedure are i n the results section. SPECIMEN TO PATHOLOGY Routine 09/30/2013 1:13 Res ults for this PM EST procedure are i n the results section. SPECIMEN TO PATHOLOGY Routine 09/30/2013 1:13 Res ults for this PM EST procedure are i n the results section. SPECIMEN TO PATHOLOGY Routine 09/30/2013 1:13 Res ults for this PM EST procedure are i n the results section. UPPER GI ENDOSCOPY Routine 09/30/2013 12:02 Resul ts for this PM EST procedure are i n the results section. COLONOSCOPY Routine 09/30/2013 12:00 Results for this PM EST procedure are i n the results section. COLONOSCOPY, 09/30/2013 11:53 3 Y BARRETTS POLYPECTOMY, REMOVAL AM EST 5 Y TA SURVEILLANCE LESION BY SNARE (WRVU 4.67) UPPER GASTROINTESTINAL 09/30/2013 11:53 3 Y MESA ETTS ENDOSCOPY,WITH BIOPSY AM EST 5 Y TA SURVEILLANCE SINGLE OR MULTIPLE (WRVU 2.49) documented in this encounter Results Surgical Pathology Report (09/30/2013 1:13 PM EST) [facility] Method Time Signature Surgical CERNER Pathology ? [facility] Report ? Provider: ?? Janneth ORLANDO ?Pt. Name: ?? SHAILESH DUNN ? Acc #: ?[id number] ?Pt. MRN: ?[id number] ? Col Date: ?? 09/30/2013 ?/Sex: ?1940,(73 years),Male ? Rec Date: ?? 09/30/2013 ?LOC: ?4T ? SURGICAL PATHOLOGY ? ---Pathologic Diagnosis--- ? A - Esophagus 34-36 cm, biopsy: ? Landers's esophagus, negative for dysplasia. ? B - Stomach, polypectomy: ? Fragments of hyperplastic polyp with erosions. ? C - Ascending colon, polypectomy: ? Fragments of tubular adenoma. ? D - Rectosigmoid colon, polypectomy: ? Villous adenoma, completely excised. ? Hyperplastic polyp. ? E - Hepatic flexure, polypectomy: ? Tubular adenoma. ? CR-0, CR-PX ? 10/02/13 ? AJE ? 10/02/13 Verified by: ? Kraig Wang MD ? Pathologist ? (Electronic Si gnature) ? The attending pathologist whose signature appears o n this report has ? reviewed all diagnostic slides and has edited the augie ss and/or ? microscopic portion of the report in rendering the fi nal pathologic ? diagnosis. ? ---Gross Description--- ? A - Labeled/Fixative: Mucosal biopsies-esophagus 34 -36 cm, formalin. ? Quantity/Size: Four, ranging from 0.3-0.5 cm. ? Tissue Description: Soft miner tissue. ? Sections/Processing: (T1) ? B - Labeled/Fixative: Mucosal biopsies-gastric polyps , formalin. ? Quantity/Size: Five, ranging from 0.1-0.4 cm. ? Tissue Description: Soft miner friable tissue. ? Sections/Processing: (T1) ? C - Labeled/Fixative: Three polyps-ascending colon, f ormalin. ? Quantity/Size: Multiple, ranging from 0.2-1.2 cm. ? [facility] ? Provider: ?? Janneth ORLANDO ?Pt. Name: ?? SERENEPreston SHAILESH WRIGHT ? Acc #: ?[id number] ?Pt. MRN: ?[id number] ? Col Date: ?? 09/30/2013 ?/Sex: ?1940,(73 years),Male ? Rec Date: ?? 09/30/2013 ?LOC: ?4T ? SURGICAL PATHOLOGY ? Tissue Description: S oft miner tissue with mucus. Largest three pieces are ? inked and bisected. ? Sections/Processing: (T3) ? D - Labeled/Fixative: Two polyp-rectosigmoid, formali n. ? Quantity/Size: Two, ranging from 0.6 x 0.4 x 0.4-1. 4 x 0.9 x 0.8 cm. ? Tissue Description: F irm miner pink and undulated bosselated polypoid tissue. ? Smaller of the two is inked and bisected. Larger of the two is inked and ? quadrisected. ? Sections/Processing: (T3) ? E - Labeled/Fixative: Polyp-hepatic flexure, formalin . ? Quantity/Size: One, 0.4 cm. ? Tissue Description: Soft miner tissue. ? Sections/Processing: (T1) ??aml ? ---Clinical Information--- ? Specimen Submitted: ? A - Mucosal biopsies - esophagus 34-36 cm ? B - Mucosal biopsies - Gastric polyps ? C - Three polyps - ascending colon ? D - Two polyps - rectosigmoid ? E - Polyp - hepatic flexure ? Clinical History: ? 73-year-old 47L and four Landers's and chronic adenom as ? Clinical Diagnosis: ? Same Specimen (Source) Anatomical Collection Method Collection Time Re ceived Time Location / / Volume Laterality 09/30/2013 1:13 PM EST Janneth Orlando MD PATHOLOGY/CYTOLOGY ORDERABLE S Performing Organization Address [facility]/ZIP [place] [address] CERNER MILLENNIUM Specimen to Pathology (surgical or derm) (09/30/2013 1:13 PM EST) Specimen Anatomical Collection Method Collection Time Receive d Time (Source) Location / / Volume Laterality AP Specimen 09/30/2013 1:13 PM 4 1:13 EST PM EST Narrative CERNER MILLENNIUM - 09/30/2013 1:[address] Specimen requisition ordered. ??Separate Pathology report to follow L Jose Orlando MD PATHOLOGY/CYTOLOGY ORDERABLE S Performing Organization Address [facility] [place] [address] CERNER MILLENNIUM Specimen to Pathology (surgical or derm) (09/30/2013 1:13 PM EST) Specimen Anatomical Collection Method Collection Time Receive d Time (Source) Location / / Volume Laterality AP Specimen 09/30/2013 1:13 PM 4 1:13 EST PM EST Narrative CERNER MILLENNIUM - 09/30/2013 1:[address] Specimen requisition ordered. ??Separate Pathology report to follow L Jose Orlando MD PATHOLOGY/CYTOLOGY ORDERABLE S Performing Organization Address City/[facility] [place] [address] CERNER MILLENNIUM Specimen to Pathology (surgical or derm) (09/30/2013 1:13 PM EST) Specimen Anatomical Collection Method Collection Time Receive d Time (Source) Location / / Volume Laterality AP Specimen 09/30/2013 1:13 PM 4 1:13 EST PM EST Narrative CERNER MILLENNIUM - 09/30/2013 1:[address] Specimen requisition ordered. ??Separate Pathology report to follow L Jose Orlando MD PATHOLOGY/CYTOLOGY ORDERABLE S Performing Organization Address City/[facility] [place] [address] CERNER MILLENNIUM Specimen to Pathology (surgical or derm) (09/30/2013 1:13 PM EST) Specimen Anatomical Collection Method Collection Time Receive d Time (Source) Location / / Volume Laterality AP Specimen 09/30/2013 1:13 PM 4 1:13 EST PM EST Narrative CERNER MILLENNIUM - 09/30/2013 1:[address] Specimen requisition ordered. ??Separate Pathology report to follow L Jose Orlando MD PATHOLOGY/CYTOLOGY ORDERABLE S Performing Organization Address City/State/ZIP Code Phon e [place] [address] CERNER MILLENNIUM Specimen to Pathology (surgical or derm) (09/30/2013 1:13 PM EST) Specimen Anatomical Collection Method Collection Time Receive d Time (Source) Location / / Volume Laterality AP Specimen 09/30/2013 1:13 PM 4 1:13 EST PM EST Narrative CERNER MILLENNIUM - 09/30/2013 1:[address] Specimen requisition ordered. ??Separate Pathology report to follow Janneth Orlando MD PATHOLOGY/CYTOLOGY ORDERABLE S Performing Organization Address City/State/ZIP Code Phon e Number [place] [address] CERNER MILLENNIUM UPPER GI ENDOSCOPY (09/30/2013 12:02 PM EST) Component Value Ref Test Analysis Performed At [facility] Range Method Time Signature UPPER GI [facility] ENDOSCOPY Endoscopy Patient Name: Shailesh Trevino ? Procedure Date: 09/30/2013 12:02 PM ? Date of : 1940 ? Age: 73 ? Order #: [id number] ? Procedure: ? Upper GI endoscopy Indications: ? Surveillance for malignancy due to ? personal history of Landers's ? esophagus Providers: ? L. Jose Orlando MD, Maris Briones , ? RN, Huy Valero RN, Petty Cohen ? BRENDA Sanderson Referring : ?Juhi Howell NP Medicines: ? Midazolam 3 mg IV, Fentanyl 150 ? micrograms IV [...] the ? mouth, and [facility] ? of duodenum. The patient tole rated ? the procedure well. The upper GI ? endoscopy was accomplished wi out ? difficulty. ? Findings: ? A small hiatus hernia was found. The proximal extent ? of the gastric folds (end of tubular esophagus) was ? 36 cm from the incisors. The hiatal narrowing was 37 ? cm from the incisors. The Z-line was 34 cm from the ? incisors. ? There were esophageal mucosal changes consistent with ? Landers's esophagus, extending from the upper extent ? of the gastric folds which were at 36 cm from the ? incisors to the Z-line which was at 34 cm from the ? incisors. Scattered islands of squamous mucosa were ? present. The maximum longitudinal extent of these ? esophageal mucosal changes was 2 cm in length. Mucosa ? was biopsied with a cold large-capacity forceps for ? histology in 4 quadrants at intervals of 2 cm from 34 ? to 36 cm from the incisors. One specimen bottle was ? sent to pathology. ? Multiple 5 to 8 mm sessile polyps were found in the ? gastric fundus and in the gastric body. Biopsies were ? taken with a cold forceps for histology. ? The examined duodenum was normal. ? Impression: ?- Hiatus hernia. ? - Esophageal mucosal changes ? consistent with Landers's eso phagus. ? Biopsied. ? - Multiple gastric polyps. Bi opsied. ? - Normal examined duodenum. Recommendation: ?- Await pathology results. ? - Continue Protonix. ? L. Jose Orlando MD 09/30/2013 12:21 PM Number of Addenda: 0 Note Initiated On: 09/30/2013 12:02 PM Specimen (Source) Anatomical Collection Method Collection Time Re ceived Time Location / / Volume Laterality 09/30/2013 12:02 PM EST Juhi Howell APRN GENERAL SURGICAL ORDERABLES Performing Organization Address City/State/[facility] Phon e Number [facility] COLONOSCOPY (09/30/2013 12:00 PM EST) [facility] gist Method Time Signature COLONOSCOPY [facility] Endoscopy Patient Name: Shailesh Trevino ? Procedure Date: 09/30/2013 12:00 PM ? Date of : 1940 ? Age: 73 ? Order #: [id number] ? Procedure: ? Colonoscopy Indications: ? High risk colon cancer surveillance : ? 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 L. Jose Orlando MD, Maris Briones , ? RN, Huy Valero RN, Petty Cohen ? BRENDA Sanderson Referring : ?Juhi Howell NP Medicines: ? Fentanyl 75 micrograms IV, Midazol am ? 2 mg IV, plus residual medica tion ? from EGD Complications: ? No immediate complications. [...] f the ? bowel preparation was good. ? Findings: ? The perianal and digital rectal examinations were ? normal. ? Two polyps were found in the recto-sigmoid colon at ? 12 cm from the anal verge. The larger polyp was 16 mm ? and pedunculated. The smaller was sessile and 4 mm in ? size. The larger polyp was removed with a hot snare ? and the smaller with a cold snare. Resection and ? retrieval were complete. ? Multiple medium-mouthed diverticula were found in the ? sigmoid colon. ? A sessile polyp was found at the hepatic flexure. The ? polyp was 3 mm in size. The polyp was removed with a ? cold snare. Resection and retrieval were complete. ? Three sessile polyps were found in the proximal ? ascending colon. The polyps were 3, 10, and 12 mm in ? size. The 10 mm polyp was removed with a cold snare ? with resultant persistent oozing that required a ? hemostatic clip. It was successfully placed with ? complete resolution of the bleeding. The 12 mm polyp ? was removed with a hot snare, and the 3 mm polyp was ? removed with a cold snare. Resection and retrieval ? were complete. ? The terminal ileum appeared normal. ? Impression: ?- Two 3 to 16 mm polyps at the ? recto-sigmoid colon. Resected and ? retrieved. ? - Diverticulosis in the sigmo id colon. ? - One 3 mm polyp at the hepat ic ? flexure. Resected and retriev ed. ? - Three 3 to 12 mm polyps in the ? proximal ascending colon. Res ected ? and retrieved. One clip succe ssful ? placed with complete resoluti on of ? oozing following polypectomy. ? - The examined portion of the ileum ? was normal. Recommendation: ?- Await pathology results to ? determine the appropriate int erval ? until the next exam. The brady ent will ? be notified by mail. If resul ts are ? not received within three wee ks, ? please call our office at ? [phone]. ? L. Jose Orlando MD 09/30/2013 1:22 PM Number of Addenda: 0 Note Initiated On: 09/30/2013 12:00 PM Specimen (Source) Anatomical Collection Method Collection Time Re ceived Time Location / / Volume Laterality 09/30/2013 12:00 PM EST Juhi Klever Dante [employer] GENERAL SURGICAL ORDERABLES Performing Organization Address City/State/ZIP Code Phon e Number [facility] documented in this encounter Visit Diagnoses Not on filedocumented in this encounter Administered Medications Inactive Administered Medications - up to 3 most recent administrations Medication Order MAR Action Action Date Dose Rate Site sodium chloride 0.9% New Bag 09/30/2013 11:30 AM EST 30 mL/hr 30 mL/hr infusion 30 mL/hr, Intravenous, CONTINUOUS, Starting on Sun09/30/13 at 1130, Until Sun09/30/13 at 1439, Endoscopy (Day of Procedure) documented in this encounter Active and Recently Administered Medications Times are shown in EST. Continuous Medication Order 09/28/2013 09/29/2013 09/30/2013 sodium chloride 0.9% infusion (CANCELED) 1130 (New Bag - Provider: Sony Chaney RN) 30 mL/hr, at 30 mL/hr, Intravenous, CONT INUOUS, Starting Sun09/30/13 at 1130, Until Sun09/30/13 at 1439, Endo (Day of Procedure) PRN Medication Order 09/28/2013 09/29/2013 09/30/2013 fentaNYL 50mcg/mL injection (CANCELED) 1158 (Given - Provider: Maris Briones RN)1201 (Given - Provider: Maris Briones RN)1206 (Given - Provider: Maris Briones RN)1221 (Given - Provider: Maris Briones RN)1226 (Given - Provider: Maris Briones, BRENDA) ONCE PRN, Starting 09/30/13 at 1158, U ntil 09/30/13 at 1439, Pain, Intra- Operative (Intra-Procedure), Routine midazolam (VERSED) injection (CANCELED) 1158 (Given - Provider: Maris Briones RN)1201 (Given - Provider: Maris Briones RN)1205 (Given - Provider: Maris Briones RN)1221 (Given - Provider: Maris Briones RN)1226 (Given - Provider: Maris Briones, BRENDA) ONCE PRN, Starting 09/30/13 at 1158, U ntil 09/30/13 at 1439, Sleep, Intra- Operative (Intra-Procedure), Routine 122 7 (Given - Provider: Maris Briones, BRENDA) documented in this encounter Care Teams Floatlight Powder Mixer Relationship Specialty Start Date End Date Juhi Howell APRN PCP - General 09/07/10 04/19/15 YESSEN[address] [facility] [place] [address] documented as of this encounter
--- OUTSIDE RECORDS SUMMARY | 2022-08-11 01:26 | XMS_ITS | Encounter Summary ---
:1940 Author Organization [facility] Address [facility] [address] [place] [address] Care Team Providers Name Role Phone Demarco Lopez MD Primary Care Provider [phone] Reason for Visit Reason Comments Medication Refill Encounter Details Date Type Department Care Team Description 11/19/2017 Refill Gastroenterology at [facility] Janneth Schwartz MD [facility] [place] [address] GASTROENTEROLOGY DEPT. [phone] [place], [place] [address] (Wo rk) Social History Tobacco [...] 04/13/2023 Hospital Encounter Gastroenterology Janneth Schwartz MD [facility] ER GASTROENTEROLOGY DEPT. [place], [place] [address] (Wo rk) Scheduled Procedures Name Priority Associated Diagnoses Date/Time COLONOSCOPY, DIAGNOSTIC 5 yr surv from 04/12/18 documented as of this encounter Visit Diagnoses Not on filedocumented in this encounter Care Teams Cleaner Industrial Relationship Specialty Start Date End Date Demarco Lopez MD PCP - General 04/20/[address] [place] [address] documented as of this encounter
--- OUTSIDE RECORDS SUMMARY | 2022-08-11 01:26 | XMS_ITS | Encounter Summary ---
:1940 Author Organization [facility] [place] [address] Care Team Providers Name Role Phone Juhi Howell APRN Primary Care Provider Reason for Visit Reason Comments Medication Refill Encounter Details Date Type Department Care Team Description 08/27/2011 Refill Gastroenterology at [facility] Janneth Schwartz MD [facility] [place] [address] GASTROENTEROLOGY DEPT. [phone] [place], [place] [address] (Wo rk) Social History Tobacco [...] Encounter Gastroenterology Janneth Schwartz MD [facility] GASTROENTEROLOGY DEPT. [place], [place] [address] (Wo rk) Scheduled Procedures Name Priority Associated Diagnoses Date/Time COLONOSCOPY, DIAGNOSTIC 5 yr surv from 04/12/18 documented as of this encounter Visit Diagnoses Not on filedocumented in this encounter Care Teams Inspector And Tester Relationship Specialty Start Date End Date Juhi Howell APRN PCP - General 09/07/10 04/19/15 YESSENIA [address] [place] [address] documented as of this encounter
--- OUTSIDE RECORDS SUMMARY | 2022-08-11 01:26 | XMS_ITS | Encounter Summary ---
:1940 Author Organization [facility] [place] [address] Care Team Providers Name Role Phone Juhi Howell APRN Primary Care Provider Reason for Visit Reason Comments Skin Check Encounter Details Date Type Department Care Team Description 07/26/2012 Office Visit Dermatology Doug Castanon, Herpes labialis (Primary Dx) ; [address] Psoriasis; [address] [facility] Inflamed seborrheic keratosis [place], [place] DERMATOLOGY [address] [place] [address] [phone] (Wo rk) Social History Tobacco Use Types [...] encounter Progress Notes Doug Castanon MD - 07/26/2012 10:27 AM EDT Problems: 1. One-year followup. 2. 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 3. Psoriasis of the glans penis. Shailesh follows up and is doing well. As long as he stays on the valacyclovir, he has only had about two outbreaks this last year of herpes labialis of the lips. Prior to the valacyclovir, he had had one outbreak almost monthly. Just a few tubes of Dovonex cream lasts him for a year. He has some irritated lesions he would like to have me check. Physical examination reveals a benign examination of the head and the neck, the chest, the back, hands, arms, forearms, thighs, and calves. He has an irritated seborrheic keratosis on the left lateral calf and one on the left distal anterior thigh. He also has a seborrheic keratosis on the right upper chest at the base of the neck that is often caught by his shirt. Otherwise, his examination is benign. Assessment and Plan: 1. Herpes labialis. a. The patient had refills already for his valacyclovir 1-gram size, which he should take one p.o. daily. In the past we have given him #90 for a three-month supply with two refills. 2. Psoriasis, genital. a. Continue Dovonex cream, applying this on a daily basis. In the past we have given him a 60-gram tube with one refill, which would last him for a year. 3. Irritated seborrheic keratoses, left thigh. a. LN2 times two applied to each of two sites and one on the right upper chest. b. Ukwnlp-sg-ndifed reminder in one year. Copy: Taylor Banuelos documented in this encounter Plan of Treatment Upcoming Encounters Date Type Specialty Care Team Description 04/13/2023 Hospital Encounter Gastroenterology Janneth Schwartz MD [facility] DR GASTROENTEROLOGY DEPT. [place], [place] [address] (Wo rk) Scheduled Procedures Name Priority Associated Diagnoses Date/Time COLONOSCOPY, DIAGNOSTIC 5 yr surv from 04/12/18 documented as of this encounter Visit Diagnoses Diagnosis Herpes labialis - Primary Herpes simplex without mention of compli cation Psoriasis Other psoriasis Inflamed seborrheic keratosis documented in this encounter Care Teams Commercial Carpet Installer Relationship Specialty Start Date End Date Juhi Howell APRN PCP - General 09/07/10 04/19/15 [address] [place] [address] documented as of this encounter
--- OUTSIDE RECORDS SUMMARY | 2022-08-11 01:26 | XMS_ITS | Encounter Summary ---
:1940 Author Organization [facility] Address [facility] [place] [address] Care Team Providers Name Role Phone Juhi Howell APRN Primary Care Provider Reason for Visit Reason Comments Medication Refill Encounter Details Date Type Department Care Team Description 05/24/2012 Refill Dermatology Doug Castanon MD [address] [place] [address] [address] DERMATOLOGY [place], [place] [address] [place] [address] [phone] (Wo rk) Social History Tobacco Use Types [...] 04/13/2023 Hospital Encounter Gastroenterology Janneth Schwartz MD [facility] GASTROENTEROLOGY DEPT. [place], [place] [address] (Wo rk) Scheduled Procedures Name Priority Associated Diagnoses Date/Time COLONOSCOPY, DIAGNOSTIC 5 yr surv from 04/12/18 documented as of this encounter Visit Diagnoses Not on filedocumented in this encounter Care Teams Base Draw Operator Relationship Specialty Start Date End Date Juhi Howell APRN PCP - General 09/07/10 04/19/15 [address] [place] [address] documented as of this encounter
--- OUTSIDE RECORDS SUMMARY | 2022-08-11 01:26 | XMS_ITS | Encounter Summary ---
:1940 Author Organization [facility] [place] [address] Care Team Providers Name Role Phone Juhi Howell APRN Primary Care Provider Encounter Details Date Type Department Care Team Description 09/30/2013 Surgery [place] [facility] [place]anneth Orlando UPPER GASTROINTESTINAL [facility] Jim Garcia MD ENDOSCOPY,[place] [address] [facility]LE [facility] MULTIPLE ([facility] [phone] CENTER [facility]) [place] [address] Social History Tobacco Use Types Packs/Day Years [...] you need to be checked. Sunday-Sunday Clinic [phone] 8a-5p Same Day Endo [phone] 7a-8p Otherwise contact [phone] and ask to speak to the raw stock machine feeder management consultant Follow up care is a cabello part [...] Orlando MD - 09/30/2013 1:09 PM EST [facility] Operative Note Patient Name: Shailesh Trevino : [id number] MR#: [id number] Case Date: 09/30/2013 Surgeon: Surgeon(s) and Role: * Janneth Orlando MD - Primary Preoperative diagnosis: 3 Y BARRETTS 5 Y TA SURVEILLANCE Postoperative diagnosis: * No post-op diagnosis entered * Procedure(s): UPPER GASTROINTESTINAL ENDOSCOPY,WITH BIOPSY SINGLE OR MULTIPLE COLONOSCOPY, POLYPECTOMY, REMOVAL LESION BY SNARE IV Conscious Sedation Please see the Provation procedure report in the Procedures tab in eD. Miscellaneous - Provider, Scanning - 09/30/2013 11:57 AM EST documented in this encounter Plan of Treatment Upcoming Encounters Date Type Specialty Care Team Description 04/13/2023 Hospital Encounter Gastroenterology Janneth Orlando MD [facility] GASTROENTEROLOGY DEPT. [place], [place] [address] (Wo rk) Scheduled Procedures Name [...] Surgical Pathology Report (09/30/2013 1:13 PM EST) [facility] Method Time Signature Surgical CERNER Pathology ? [facility] Report ? Provider: ?? Janneth ORLANDO ?Pt. Name: ?? SHAILESH DUNN ? Acc #: ?[id number] ?Pt. MRN: ?[id number] ? Col Date: ?? 09/30/2013 ?/Sex: ?1940,(73 [...] ? AJE ? 10/02/13 Verified by: ? Kathleen GARCIA, Kraig ? Pathologist ? (Electronic Si gnature) ? [...] Quantity/Size: Multiple, ranging from 0.2-1.2 cm. ? [facility] ? Provider: ?? Janneth ORLANDO ?Pt. Name: ?? SERENEPreston SHAILESH WRIGHT ? Acc #: ?[id number] ?Pt. MRN: ?[id number] ? Col Date: ?? 09/30/2013 ?/Sex: ?1940,(73 [...] MD PATHOLOGY/CYTOLOGY ORDERABLE S Performing Organization Address [facility]/ZIP [facility] Ph[place] [address] CERNER MILLENNIUM Specimen to [...] MD PATHOLOGY/CYTOLOGY ORDERABLE S Performing Organization Address [facility] Ph[place] [address] CERNER MILLENNIUM Specimen to [...] MD PATHOLOGY/CYTOLOGY ORDERABLE S Performing Organization Address [facility] Code Ph[place] [address] CERNER MILLENNIUM Specimen to [...] Organization Address City/State/ZIP Code [place] [address] CERNER MILLENNIUM Specimen to [...] Organization Address City/State/ZIP Code Phon e Number [address] CERNER MILLENNIUM Specimen to [...] MD PATHOLOGY/CYTOLOGY ORDERABLE S Performing Organization Address City/[facility]/ZIP Code Phon e Number [address] CERNER MILLENNIUM UPPER GI ENDOSCOPY (09/30/2013 12:02 PM EST) Component Value Ref Test Analysis Performed At [facility] Range Method Time Signature UPPER GI [facility] ENDOSCOPY Endoscopy Patient Name: Shailesh Belinda ? Procedure Date: 09/30/2013 12:02 PM ? Date of : 1940 ? Age: 73 ? Order #: [id number] ? Procedure: ? Upper GI endoscopy Indications: [...] the ? mouth, and [facility] ? of duodenum. The patient tole [...] pathology results. ? - Continue Protonix. ? LTamara Orlando MD 09/30/2013 12:21 PM Number of Addenda: 0 Note Initiated On: 09/30/2013 12:02 PM Specimen (Source) Anatomical Collection Method Collection Time Re ceived Time Location / / Volume Laterality 09/30/2013 12:02 PM EST Juhi Howell APRN GENERAL SURGICAL ORDERABLES Performing Organization Address City/State/ZIP Code Phon e Number [facility] COLONOSCOPY (09/30/2013 12:00 PM EST) [facility] gist Method Time Signature COLONOSCOPY [facility] Endoscopy Patient Name: Shailesh Trevino ? Procedure Date: 09/30/2013 12:00 PM ? Date of : 1940 ? Age: 73 ? Order #: [id number] ? Procedure: ? Colonoscopy Indications: ? High risk colon cancer surveillance : ? 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 L. Jose Orlando MD, Maris Briones , ? RN, Huy Valero RN, Petty Cohen ? BRENDA Sanderson Referring : ?Juhi Howell, LOREN Medicines: ? Fentanyl 75 micrograms IV, Midazol [...] ? please call our office at ? [phone]. ? L. Jose Orlando MD 09/30/2013 1:22 PM Number of Addenda: 0 Note Initiated On: 09/30/2013 12:00 PM Specimen (Source) Anatomical Collection Method Collection Time Re ceived Time Location / / Volume Laterality 09/30/2013 12:00 PM EST Juhi Howell APRN GENERAL SURGICAL ORDERABLES Performing Organization Address City/State/ZIP Code Phon e Number [facility] documented in this encounter Visit Diagnoses Not on filedocumented in this encounter Administered Medications Inactive Administered Medications - up to 3 most recent administrations Medication Order MAR Action Action Date Dose Rate Site fentaNYL 50mcg/mL injection Given 09/30/2013 12:26 PM EST 25 mcg ONCE PRN, Starting on Sun09/30/13 at 1158, Until Sun09/30/13 at 1439, Pain, Intra-Operative (Intra-Procedure), Routine Given 09/30/2013 12:21 PM EST 50 mcg Given 09/30/2013 12:06 PM EST 50 mcg midazolam (VERSED) injection Given 09/30/2013 12:27 PM EST 0.5 mg ONCE PRN, Starting on Sun09/30/13 at 1158, Until Sun09/30/13 at 1439, Sleep, Intra-Operative (Intra-Procedure), Routine Given 09/30/2013 12:26 PM EST 0.5 mg Given 09/30/2013 12:21 PM EST 1 mg sodium chloride 0.9% infusion New Bag 09/30/2013 11:30 AM EST 30 mL/hr 30 mL/hr 30 mL/hr, Intravenous, CONTINUOUS, Starting on Sun09/30/13 at 1130, Until Sun09/30/13 at 1439, Endoscopy (Day of Procedure) documented in this encounter Active and Recently Administered Medications Times are shown in EST. Continuous Medication Order 09/28/2013 09/29/2013 09/30/2013 sodium chloride 0.9% infusion (CANCELED) 1130 (New Bag - Provider: Sony Chaney, BRENDA) 30 mL/hr, at 30 mL/hr, Intravenous, CONT INUOUS, Starting 09/30/13 at 1130, Until 09/30/13 at 1439, Endo (Day of Procedure) PRN Medication Order 09/28/2013 09/29/2013 09/30/2013 fentaNYL 50mcg/mL injection (CANCELED) 1158 (Given - Provider: Maris Briones RN)1201 (Given - Provider: Maris Briones RN)1206 (Given - Provider: Maris Briones, BRENDA)1221 (Given - Provider: Maris Briones, BRENDA)1226 (Given - Provider: Maris Briones, BRENDA) ONCE PRN, Starting 09/30/13 at 1158, U ntil 09/30/13 at 1439, Pain, Intra- Operative (Intra-Procedure), Routine midazolam (VERSED) injection (CANCELED) 1158 (Given - Provider: Maris Briones, BRENDA)1201 (Given - Provider: Maris Briones, BRENDA)1205 (Given - Provider: Maris Briones, BRENDA)1221 (Given - Provider: Maris Briones, BRENDA)1226 (Given - Provider: Maris Briones, BRENDA) ONCE PRN, Starting 09/30/13 at 1158, U ntil 09/30/13 at 1439, Sleep, Intra- Operative (Intra-Procedure), Routine 122 7 (Given - Provider: Maris Briones, BRENDA) documented in this encounter Care Teams Seed Buyer Relationship Specialty Start Date End Date Juhi Howell APRN PCP - General 09/07/10 04/19/15 [address] [place] [address] documented as of this encounter
--- OUTSIDE RECORDS SUMMARY | 2022-08-11 01:26 | XMS_ITS | Encounter Summary ---
:1940 Author Organization [facility] [place] [address] Care Team Providers Name Role Phone Demarco Lopez MD Primary Care Provider [phone] Encounter Details Date Type Department Care Team Description 10/29/2015 Hospital Encounter Hematology and Iron de ficiency anemia, Oncology at [facility] unspecified iron [facility] [place] [address] Social History Tobacco Use Types Packs/Day [...] Janneth Schwartz MD [facility] GASTROENTEROLOGY DEPT. [place], [place] [address] (Wo rk) Scheduled Procedures Name Priority Associated Diagnoses Date/Time COLONOSCOPY, DIAGNOSTIC 5 yr surv from 04/12/18 documented as of this encounter Procedures Procedure Name Priority Date/Time Associated Comments Diagnosis SCAN, PERIPHERAL BLOOD Routine 10/29/2015 2:03 PM Results for this EST procedure are i n the results section. HEMOGRAM Routine 10/29/2015 2:03 PM Iron deficiency Result s for this EST anemia, unspecified procedur e are in iron deficiency the results anemia type section. DIFFERENTIAL, Routine 10/29/2015 2:03 PM Iron deficiency Resul ts for this AUTOMATED EST anemia, unspecified procedur e are in iron deficiency the results anemia type section. IRON AND TIBC Routine 10/29/2015 2:03 PM Iron deficiency Resul ts for this EST anemia, unspecified procedur e are in iron deficiency the results anemia type section. CBC (WITH DIFF) Routine 10/29/2015 2:03 PM Iron deficiency EST anemia, unspecified iron deficiency anemia type FERRITIN Routine 10/29/2015 2:03 PM Iron deficiency Result s for this EST anemia, unspecified procedur e are in iron deficiency the results anemia type section. COMPREHENSIVE Routine 10/29/2015 2:03 PM Iron deficiency Resul ts for this METABOLIC PANEL EST anemia, unspecified proce dure are in (NON-FASTING) iron deficiency the results anemia type section. documented in this encounter Results Scan, Peripheral Blood (10/29/2015 2:03 PM EST) [facility] gist Method Time Signature Plat Estimate Normal CERNER MILLENNIUM RBC Morphology Abnormal CERNER MILLENNIUM Microcytes 6-10 /HPF CERNER MILLENNIUM Hypochromia Slight CERNER MILLENNIUM Ovalocytes 6-10 /HPF CERNER MILLENNIUM Specimen Anatomical Collection Method Collection Time Receive d Time (Source) Location / / Volume Laterality Blood specimen 10/29/2015 2:03 PM 016 2:17 (specimen) EST PM EST Resulting Agency Comment Spec In Lab Diogo Menchaca MD HEMATOLOGY ORDERABLES Performing Organization Address City/State/[place] [address] CERNER MILLENNIUM Differential, Automated (10/29/2015 2:03 PM EST) P athologist Signature Neutrophils % 54.4 % CERNER MILLENNIUM Neutr Abs (ANC) 3.67 1.50 - CERNER 6.30 MILLENNIUM x10(3)/mcL Lymphocytes % 30.3 % CERNER MILLENNIUM Lymphocytes Abs 2.0 1.0 - 3.6 CERNER x10(3)/mcL MILLENNIUM Monocytes % 7.5 % CERNER MILLENNIUM Monocyte Abs 0.5 0.2 - 1.0 CERNER x10(3)/mcL MILLENNIUM Eosinophils % 6.5 % CERNER MILLENNIUM Eosinophils Abs 0.4 0.0 - 0.5 CERNER x10(3)/mcL MILLENNIUM Basophils % 1.2 % CERNER MILLENNIUM Basophils Abs 0.1 0.0 - 0.2 CERNER x10(3)/mcL MILLENNIUM Immature Gran % 0.10 % CERNER MILLENNIUM Comment: Immature granulocytes(IG's)percentage an d absolute count will include metamyelocytes, myelocytes, and promyelo cytes. Blood smears from CBCs yielding IG's will be scanned manually for concor dance. If this scan disagrees with the automated IG or if promyelocytes are not ed, a manual differential will be performed. Emilia Gran Abs 0.01 0.00 - 0.05 x10(3)/mcL CER NER MILLENNIUM Specimen Anatomical Collection Method Collection Time Receive d Time (Source) Location / / Volume Laterality Blood specimen 10/29/2015 2:03 PM 016 2:17 (specimen) EST PM EST Resulting Agency Comment Spec In Lab Diogo Menchaca MD HEMATOLOGY ORDERABLES Performing Organization Address City/State/[place] [address] CERNER MILLENNIUM (ABNORMAL) Hemogram (10/29/2015 2:03 PM EST) [facility] gist Method Time Signature WBC 6.8 4.0 - 10.0 CERNER x10(3)/mcL MILLENNIUM RBC 5.18 4.63 - CERNER 6.08 MILLENNIUM x10(6)/mcL Hemoglobin 11.1 (L) 13.7 - CERNER 17.5 gm/dL MILLENNIUM Hematocrit 38.1 (L) 40.0 - CERNER 51.0 % MILLENNIUM MCV 73.6 (L) 79.0 - CERNER 92.0 fL MILLENNIUM MCH 21.4 (L) 25.6 - CERNER 32.2 pg MILLENNIUM MCHC 29.1 (L) 32.0 - CERNER 36.5 gm/dL MILLENNIUM Platelets 146 145 - 370 CERNER x10(3)/mcL MILLENNIUM RDWSD 68.7 (H) 35.0 - CERNER 46.0 fL MILLENNIUM RDWCV 26.7 (H) 10.9 - CERNER 14.4 % MILLENNIUM MPV Not Measured 9.0 - 12.0 CERNER fL MILLENNIUM Specimen Anatomical Collection Method Collection Time Receive d Time (Source) Location / / Volume Laterality Blood specimen 10/29/2015 2:03 PM 016 2:17 (specimen) EST PM EST Resulting Agency Comment Spec In Lab Diogo Menchaca MD HEMATOLOGY ORDERABLES Performing Organization Address City/[facility]/ZIP [facility] Phon e Number [address] CERNER MILLENNIUM Ferritin (10/29/2015 2:03 PM EST) athologist Signature Ferritin 44 30 - 400 CERNER ng/mL MILLENNIUM Comment: Pediatric reference ranges not verified at [facility], interpret with caution. Reference ranges for females greater myriam n 50 years of age approach values for men, i.e., 30-400 ng/mL. Specimen Anatomical Collection Method Collection Time Receive d Time (Source) Location / / Volume Laterality Blood specimen 10/29/2015 2:03 PM 016 2:17 (specimen) EST PM EST Resulting Agency Comment Spec In Lab Diogo Menchaca MD CHEMISTRY ORDERABLES Performing Organization Address City/[facility] Phon e Number [address] CERNER MILLENNIUM (ABNORMAL) Iron and TIBC (10/29/2015 2:03 PM EST) Analysis Performed At Patho logist Time Signature Iron 96 45 - 160 CERNER mcg/dL MILLENNIUM TIBC 471 (H) 250 - 450 CERNER mcg/dL MILLENNIUM Iron Saturation 20 20 - 50 % CERNER MILLENNIUM Specimen Anatomical Collection Method Collection Time Receive d Time (Source) Location / / Volume Laterality Blood specimen 10/29/2015 2:03 PM 016 2:17 (specimen) EST PM EST Resulting Agency Comment Spec In Lab Diogo Menchaca MD CHEMISTRY ORDERABLES Performing Organization Address City/State/[place] [address] CERNER MILLENNIUM Comprehensive metabolic panel (non-fasting) (10/29/2015 2:03 PM EST) athologist Signature Glucose Lvl 96 65 - 199 CERNER mg/dL MILLENNIUM Comment: Diabetes: >=200 mg/dL plus symp toms BUN 14 10 - 20 mg/dL CERNER MILLENNIU M Creatinine 1.11 0.80 - 1.50 mg/dL CERNER MILL ENNIUM Comment: Please note that the pediatric reference intervals supplied above were not validated at [facility]. Results from pediatri c patients should be interpreted in conjunction to the patient's age, height and muscle mass. Sodium 141 135 - 145 mmol/L CERNER CINDY NIUM Potassium 3.9 3.5 - 5.0 mmol/L CERNER CINDY NIUM Comment: Please note: ??Patients with WBC >100,00 0 may have falsely elevated Potassium levels. ??For accurate Potassium quantif ication in these patients send serum separator tube (gold top) for subsequent determinations. ??Contact the Clinical Chemistry Laboratory if there are any qu estions. Chloride 103 98 - 107 mmol/L CERNER MILLENN IUM CO2 24 22 - 31 mmol/L CERNER MILLENNI UM Anion Gap 14 5 - 15 mmol/L CERNER MILLENNIU M Calcium 9.4 8.5 - 10.5 mg/dL CERNER CINDY NIUM Total Protein 7.6 6.1 - 8.0 gm/dL CERNER MIL LENNIUM Albumin 4.4 3.2 - 5.2 gm/dL CERNER MILLENN IUM AST 29 0 - 39 unit/L CERNER MILLENNIU M ALT 18 0 - 55 unit/L CERNER MILLENNIU M Alk Phos 79 40 - 120 unit/L CERNER MILLENN IUM Total Bilirubin 0.5 0.2 - 1.3 mg/dL CERNER M ILLENNIUM Bili, Direct 0.2 0.0 - 0.3 mg/dL CERNER MILL ENNIUM Estimated GFR >60 >=60 DIONY BLOUNT M Comment: This estimated GFR (eGFR) value was calc ulated using the MDRD equation which has been validated on patients between t he ages of 18 and 70. The MDRD should not be used to assess kidney function in patients < 18 years of age or in patients with extremes of body mass, or in patients with acute kidney failure. This value should be multiplied by 1.2 f or patients. For further information please copy and past e the following links into your internet browser. http://[email or web address]/DHnkdep http://[email or web address]/DHMCnkf Specimen Anatomical Collection Method Collection Time Receive d Time (Source) Location / / Volume Laterality Blood specimen 10/29/2015 2:03 PM 016 2:17 (specimen) EST PM EST Resulting Agency Comment Spec In Lab Diogo Menchaca MD CHEMISTRY ORDERABLES Performing Organization Address City/State/[facility] [place] [address] DIONY CHISHOLMENNIUM documented in this encounter Visit Diagnoses Diagnosis Iron deficiency anemia, unspecified iron deficiency anemia type documented in this encounter Care Teams Oracle Database Architect Relationship Specialty Start Date End Date Demarco Lopez MD PCP - General 04/20/15 [address] [place] [address] documented as of this encounter
--- OUTSIDE RECORDS SUMMARY | 2022-08-11 01:26 | XMS_ITS | Encounter Summary ---
:1940 Author Organization [facility] [place] [address] Care Team Providers Name Role Phone Demarco Lopez MD Primary Care Provider [phone] Reason for Visit Reason Comments Medication Refill Encounter Details Date Type Department Care Team Description 08/21/2017 Refill G[place]enterology at [facility] Janneth Schwartz MD [facility] [place] [address] GASTROENTEROLOGY DEPT. [phone] [place], [place] [address] (Wo rk) Social History Tobacco [...] 04/13/2023 Hospital Encounter Gastroenterology Janneth Schwartz MD [facility] GASTROENTEROLOGY DEPT. [place], [place] [address] (Wo rk) Scheduled Procedures Name Priority Associated Diagnoses Date/Time COLONOSCOPY, DIAGNOSTIC 5 yr surv from 04/12/18 documented as of this encounter Visit Diagnoses Not on filedocumented in this encounter Care Teams Librarian Helper Relationship Specialty Start Date End Date Demarco Lopez MD PCP - General 04/20/[address] [place] [address] documented as of this encounter
--- OUTSIDE RECORDS SUMMARY | 2022-08-11 01:28 | XMS_ITS | Encounter Summary ---
:[address] [facility] Address [address] [place] [address] Care Team Providers Name Role Phone Scott Gutierrez MD Primary Care Provider Encounter Details Date Type Department Care Team Description 05/04/2021 Lab Requisition [facility] Outr Resulting Lab, Pathology & Laboratory Provider [facility] [address] [place] [address] Social History Tobacco Use Types Packs/Day Years Used Date Smoking Tobacco: Never Assessed Sex Assigned at Date Recorded Not on file documented as of this encounter Plan of Treatment Not on filedocumented as of this encounter Procedures Procedure Name Priority Date/Time Associated Comments Diagnosis PSA TOTAL, Routine 05/04/2021 15:35 Results for this DIAGNOSTIC EDT procedure are i n the results section. documented in this encounter Results (ABNORMAL) PSA TOTAL, DIAGNOSTIC (05/04/2021 15:35 EDT) P athologist Signature PSA 35.9 (H) 0.0 - 6.5 05/04/2021 [facility] ng/mL 22:07 [facility] Specimen Anatomical Collection Method Collection Time Receive d Time (Source) Location / / Volume Laterality Blood VENOUS BLOOD / 05/04/2021 15:35 Unknown EDT 21:03 EDT Narrative [facility] - 05/04/2021 22:07 EDT NOTE: Serum PSA concentration should not be in terpreted as absolute evidence for the presence or absence of malignant disease. Assayed on Siemens ADVIA [email or web address] XPT usi ng chemiluminescent technology.??Values obtained by using different assay methods cannot be used interchangeably. Provider Outr Resulting Lab CHEMISTRY & BLOOD GAS SAPPHIRE BELL Performing Organization Address City/State/ZIP Code Phon e Number [facility] [address] [place] [address] SERVICES documented in this encounter Visit Diagnoses Not on filedocumented in this encounter Care Teams Quality Director Relationship Specialty Start Date End Date Scott Gutierrez MD PCP - General 08/31/[address] [place] [phone] documented as of this encounter
--- OUTSIDE RECORDS SUMMARY | 2022-08-11 01:28 | XMS_ITS | Clinical Summary ---
:1940 Author Organization [facility] Address [address] [place] [address] Care Team Providers Name Role Phone Scott Gutierrez MD Primary Care Provider Social History Tobacco Use Types Packs/Day Years Used Date Smoking Tobacco: Never Assessed Sex Assigned at Date Recorded Not on file Plan of Treatment Health Maintenance Due Date Last Done Comments Hepatitis C Screen 1940 COVID-19 Vaccine (#1) 03/10/1941 Fall Risk Screening 2007 Insurance Payer Benefit Plan Subscriber ID Effective Phone Address Typ e / Group Dates AETNA AETNA [id number] 2018-Pres [phone] MEDICARE MEDICARE ent [phone] [place] [address] Shailesh Trevino Personal/Family Self 1940 [phone] [place] [address] [facility] Personal/Family Self 1940 [phone] [place] [address] Shailesh Trevino Personal/Family Self 1940 [address] [place] [address] Care Teams Parimutuel Clerk Relationship Specialty Start Date End Date Scott Gutierrez MD PCP - General 08/31/[address] [place] [phone]
--- OUTSIDE RECORDS SUMMARY | 2022-08-11 01:28 | XMS_ITS | Encounter Summary ---
:1940 Author Organization [facility] Address [address] [place] [address] Care Team Providers Name Role Phone Scott Gutierrez MD Primary Care Provider Encounter Details Date Type Department Care Team Description 10/14/2019 Lab Requisition [facility] Unknown, Provider, Pathology & Laboratory [facility] [address] [facility] [place] [address] Social History Tobacco Use Types Packs/Day Years Used Date Smoking Tobacco: Never Assessed Sex Assigned at Date Recorded Not on file documented as of this encounter Plan of Treatment Not on filedocumented as of this encounter Procedures Procedure Name Priority Date/Time Associated Comments Diagnosis PSA TOTAL, Routine 10/14/2019 9:47 EST Results for this DIAGNOSTIC procedure are i n the results section. documented in this encounter Results (ABNORMAL) PSA TOTAL, DIAGNOSTIC (10/14/2019 9:47 EST) P athologist Signature PSA 19.7 (H) 0.0 - 6.5 10/15/2019 [facility] ng/mL 10:35 EST [facility] Specimen Anatomical Collection Method Collection Time Receive d Time (Source) Location / / Volume Laterality Blood VENOUS BLOOD / 10/14/2019 9:47 10/14/2019 Unknown EST 21:27 EST Narrative [facility] - 10/15/2019 10:35 EST NOTE: Serum PSA concentration should not be in terpreted as absolute evidence for the presence or absence of malignant disease. Assayed on Siemens ADVIA Centaur XPT usi ng chemiluminescent technology.??Values obtained by using different assay methods cannot be used interchangeably. Provider Unknown CHEMISTRY & BLOOD GAS ORDERA BLES Performing Organization Address City/State/ZIP Code Phon e Number [facility] [address] [place] [address] SERVICES documented in this encounter Visit Diagnoses Not on filedocumented in this encounter Care Teams Chief Librarian Work With Blind Relationship Specialty Start Date End Date Scott Gutierrez MD PCP - General 08/31/[address] [place] [phone] documented as of this encounter
--- OUTSIDE RECORDS SUMMARY | 2022-08-11 01:28 | XMS_ITS | Encounter Summary ---
:1940 Author Organization [facility] Address [address] [place] [address] Care Team Providers Name Role Phone Scott Gutierrez MD Primary Care Provider Encounter Details Date Type Department Care Team Description 11/18/[address] [facility] Dionne Engel MD [phone] [facility] [address] [place] [phone] (Wo rk) Social History Tobacco Use Types Packs/Day Years Used Date Smoking Tobacco: Never Assessed Sex Assigned at Date Recorded Not on file documented as of this encounter Plan of Treatment Not on filedocumented as of this encounter Procedures Procedure Name Priority Date/Time Associated Diagnosis Comme [facility] SURGICAL PATHOLOGY Routine 11/18/2010 0:00 EST Re sults for this procedure are i n the results section. documented in this encounter Results SURGICAL PATHOLOGY (11/18/2010 0:00 EST) Component Value Ref Test Analysis Performed Pathologis t Range Method Time At Signature Pathology SURGICAL PATHOLOGY REPORT ? RICHARD HER Report: Reports generated via electr ClearCycle interface contain original data; ? BRANDY BUITRAGO however they are lacking the format of the original report. ? Caution should be taken when reading/interpreting unformatted reports. ? Name: ? FEATHERINGHAM, T OMMY R ? Accession #: ? [id number] ? : ? 1940 (Age: 70) ??M ? Collec t Date: ? 11/18/2010 ? Location: ? [facility] ? R eceive Date: ? 11/19/2010 ? Provider: DIONNE NISBET MD ? 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 Final Pathologic Diagnosis: ? A. ?Prostate, r ight apex lateral, needle core biopsy: ? 1. ?Prostatic g lands and stroma with focal atrophy. ? B. ?Prostate, r ight apex medial, needle core biopsy: ? 1. ?Prostatic g lands and stroma. ? C. ?Prostate, r ight mid lateral, needle core biopsy: ? 1. ?Prostatic g lands and stroma with atrophy. ? D. ?Prostate, r ight mid medial, needle core biopsy: ? 1. ?Prostatic g lands and stroma with acute and chronic inflammation and focal atrophy. ? 2. ? Rectal-type mucosa with no pathologic features. ? E. ?Prostate, r ight base lateral, needle core biopsy: ? 1. ?Prostatic g lands and stroma with focal atrophy. ? 2. ?Rectal-type mucosa with no pathologic features. ? F. ?Prostate, r ight base medial, needle core biopsies: ? 1. ?Prostatic g lands and stroma with focal atrophy. ? 2. ?Rectal-type mucosa with no pathologic features. ? G. ?Prostate, l eft apex lateral, needle core biopsy: ? 1. ?Prostatic g lands and stroma with atrophy. ? 2. ?Rectal-type mucosa with no pathologic features. ? H. ?Prostate, l eft apex medial, needle core biopsies: ? 1. ?Prostatic g lands and stroma with focal atrophy. ? 2. ?Rectal-type mucosa with no pathologic features. ? I. ?Prostate, l eft mid lateral, needle core biopsy: ? 1. ?Atypical sm all acinar proliferation (WESLEY). ??See comment. ? J. ?Prostate, l eft mid medial, needle core biopsies: ? 1. ?Prostatic g lands and stroma with focal atrophy. ? 2. ?Rectal-type mucosa with no pathologic features. ? K. ?Prostate, l eft base lateral, needle core biopsy: ? 1. ?Atypical sm all acinar proliferation (WESLEY), favor reactive. ??See ? comment. ? L. ?Prostate, l eft base medial, needle core biopsy: ? 1. ?? Prostatic gland s and stroma with focal atrophy. ? Comment: ? Narrow Gauge Brakeman sectio ns of this case have been reviewed at ? intradepartmental consultati on conference. ??Specimen (I) shows two small (<0.5 ?? mm) foci of small acinar gla nds with nuclear atypia in the form of enlarged ? nuclei with prominent nucleo li. ??While the features are worrisome for possible ?? malignancy, the focus disapp ears on deeper levels. ??A few of the acini (I) are ?? present on the sections subm itted for immunohistochemistry and the findings fail to support a diagnosis of ma lignancy and raise the possibility of out-pouching ?? high grade prostatic intraep ithelial neoplasia (PIN). ??This case was reviewed at intradepartmental consultati on conference. (Dr. Gilbert)/[facility] ? Immunohistochemical staining was performed on specimens (I) and (K) to further ?? characterize the atypical sm all acinar proliferation identified in both ? specimens. ??Positive and ne gative controls stained appropriately. ? Block ?Antibody (Clone) ? Result ? (I),(K) ? Keratin 34BE12 (K-9)(34BE12, [facility]) ?Focally positive for basal cells ? P63 (4 A4, [facility]) ? Focally positive for basal cells ?P504S (Rabbit Monoclonal, clone [id number], [facility]) ? Negative in small acinar dipak ls; focally positive in background glands ? NOTE: ??One or more of the reagents used in immunohistochemical testing in this case may not have been clear ed or approved by the U.S. Food and Drug ? Administration (FDA). ??The FDA has determined that such clearance or approval is not necessary. ??These tests are used for clinical purposes. ??They should not be regarded as investigational or for research. ??These reagents' ??performance ? characteristics have been de termined by [facility]. ??This ? laboratory is certified unde r the Clinical Laboratory Improvement Amendments of 1988 (CLIA-88) as qualified to perform high complexity clinical laboratory ? testing. ? Document reviewed and electr onically signed by: ? KYLER GUTIÉRREZ MD ? Report ??Date: 11/24/2010 18 :00 ? By the signature above, the attending physician certifies that he/she has ? personally conducted a gross and/or microscopic examination of the described ? specimens and rendered or co nfirmed the above diagnosis. ? Specimen(s) Received: ? A. ?Rt apex lat ? B. ? Rt apex med ? C. ? Rt mid lat ? D. ? Rt mid med ? E. ? Rt base lat ? F. ? Rt base med ? G. ? Lt apex lat ? H. ? Lt apex med ? I. ? Lt mid lat ? J. ? Lt mid med ? K. ? Lt base lat ? L. ? Lt base med ? Clinical History: ? Elevated PSA ? Gross Description: ? Received in formalin labelled [place], Ministerio and right apex ? lateral is a terrell-white, cy lindrical, 0.1 x 0.1 cm soft tissue. ??The specimen ?? is entirely submitted as (A) . ? Received in formalin miladysMinisterio Vázquez and right apex medial is a miner-yellow, desiccated, 1. 3 x 0.1 cm, cylindrical soft tissue. ??The specimen ?? is entirely submitted as (B) . ? Received in formalin Ministerio Bauer and right mid lateral is a terrell-white, cylindrical, 1 .4 x 0.1 cm soft tissue. ??The specimen is entirely ?? submitted as (C). ? Received in formalin Ministerio Bauer and right mid medial is a terrell-white, cylindrical, 1.2 x 0.1 cm soft tissue. ??The specimen is entirely ? submitted as (D). ? Received in formalin [place]ad[place] Ministerio Hutchinson and right base lateral is a terrell-white, cylindrical, 1 .3 x 0.1 cm soft tissue. ??The specimen is entirely ?? submitted as (E). ? Received in formalin miladys Ministerio Hutchinson and right base medial are two terrell-white, cylindrical soft tissues measuring 0.2 and 0.8 cm in length, ? each with a diameter of 0.1 cm. ??The specimen is entirely submitted as (F). ? Received in formalin miladys Ministerio Hutchinson and left apex lateral is a terrell-white, cylindrical, 1 .4 x 0.1 cm soft tissue. ??The specimen is entirely ?? submitted as (G). ? Received in formalin [place] Ministerio Hutchinson and left apex medial are three terrell-white, cylindrica l soft tissues ranging from 0.2 to 0.7 cm in length, each with a diameter of 0.1 cm. ??The specimen is entirely submitted as (H). ? Received in formalin [place] Ministerio Hutchinson and left mid lateral is a terrell-white, cylindrical, 1.1 x 0.1 cm soft tissue. ??The specimen is entirely ? submitted as (I). ? Received in formalin [place] Ministerio Hutchinson and left mid medial are ?? two terrell-white, cylindrical soft tissues measuring 0.2 and 1.3 cm in length, ? each with a diameter of 0.1 cm. ??The specimen is entirely submitted as (J). ? Received in formalin [place] Ministerio Hutchinson and left base lateral is a terrell-white, cylindrical, 1 .2 x 0.1 cm soft tissue. ??The specimen is entirely ?? submitted as (K). ? Received in formalin [place]ad[place] Minisetrio Hutchinson and left base medial is a terrell-white, cylindrical, 1.2 x 0.1 cm soft tissue. ??The specimen is entirely ? submitted as (L). ??(Rosa lay)/[facility] ? End of Report ? Specimen (Source) Anatomical Collection Method Collection Time Re ceived Time Location / / Volume Laterality 11/18/2010 11/19/2010 9:54 EST Dionne Engel MD PATHOLOGY ORDERABLES Performing Organization Address City/State/ZIP Code Phon e Number [facility] [address] [place] [address] SERVICES [facility] [address] [place] [address] documented in this encounter Visit Diagnoses Not on filedocumented in this encounter Care Teams Cord Cutter Relationship Specialty Start Date End Date Scott Gutierrez MD PCP - General 08/31/[address] [place] [phone] documented as of this encounter
--- OUTSIDE RECORDS SUMMARY | 2022-08-11 01:28 | XMS_ITS | Encounter Summary ---
:1940 Author Organization [facility] Address [address] [place] [address] Care Team Providers Name Role Phone Scott Gutierrez MD Primary Care Provider Encounter Details Date Type Department Care Team Description 05/27/2021 Lab Requisition [facility] Allen Roe prostate Pathology & MD Olman specific antigen Laboratory Medicine [address] [facility] - [place], [place] 111 [facility] [id number] [place], [place] [id number] Social History Tobacco Use Types Packs/Day Years Used Date Smoking Tobacco: Never Assessed Sex Assigned at Date Recorded Not on file documented as of this encounter Plan of Treatment Not on filedocumented as of this encounter Procedures Procedure Name Priority Date/Time Associated Diagnosis Comme nts SURGICAL PATHOLOGY Today 05/26/2021 14:10 Elevated prostate Results for this EDT specific antigen procedure a re in (PSA) the results section. documented in this encounter Results SURGICAL PATHOLOGY (05/26/2021 14:10 EDT) Component Value Ref Test Analysis Performed At [facility] Range Method Time Signature Note to The following 06/01/2021 [facility] MEDICAL Patient pathology results 16:09 [facility] have been LABORATORY interpreted by SERVICES your pathologist and may be available to you before your health provider has had the opportunity to review them. Please allow time for your provider to receive these results and explore management options, if applicable. Final A. 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 16:09 [facility] - Core #1 (13.0 mm): 4 + 3 = 7 (85% pattern 4) (Grade Carrol up 3), 12.5 mm LABORATORY Perineural invasion SERVICES B. PROSTATE, RIGHT BASE MEDIAL, NEEDLE CORE BIOPSY (1): - Minute amount of blood; No prostatic tissue identified. C. PROSTATE, RIGHT MID LATERAL, NEEDLE CORE BIOPSY (1): - Atrophy with acute inflammation. D. PROSTATE, RIGHT MID MEDIAL, NEEDLE CORE BIOPSY (1): - Prostatic adenocarcinoma, acinar type, involving 1 of 1 core; 55% involvement. - Core #1 (13.6 mm): 4 + 4 = 8 (Grade Group 4), 7.1 mm Perineural invasion E. PROSTATE, RIGHT APEX LATERAL, NEEDLE CORE BIOPSY (1): - Focal atrophy with acute and chronic inflammation. F. PROSTATE, RIGHT APEX MEDIAL, NEEDLE CORE BIOPSY (1): - Prostatic adenocarcinoma, acinar type, involving 1 of 1 core; 25% involvement. - Core #1 (15.8 mm): 4 + 3 = 7 (85% pattern 4) (Grade Group 3), 4.0 mm G. PROSTATE, LEFT BASE LATERAL, NEEDLE CORE BIOPSY (2): - Prostatic adenocarcinoma, acinar type, involving 1 of 2 cores; overall 45% involvement. - Core # 1 (5.0 mm): Benign prostatic tissue. - Core # 2 (8.0 mm): 4 + 4 = 8 (Grade Group 4), 6.0 mm (75% involvement) H. PROSTATE, LEFT BASE MEDIAL, NEEDLE CORE BIOPSY (1): - Prostatic adenocarcinoma, acinar type, involving 1 of 1 core; Two tumor foci, overall 60% involvement. - Core #1 (18.3 mm): 2 tumor foci Focus 1: 4 + 5 = 9 (30% pattern 5) (Grade Group 5), 2.8 mm Focus 2: 4 + 4 = 8 (Grade Group 4), 7.6 mm I. PROSTATE, LEFT MID LATERAL, NEEDLE CORE BIOPSY (1): - Minute focus (<0.1 mm in 5 .0 mm core) of markedly atypical glands, suspicious for [place] pattern 4. J. PROSTATE, LEFT MID MEDIAL, NEEDLE CORE BIOPSY (1): - Prostatic adenocarcinoma, acinar type, involving 1 of 1 core; >95% involvement. - Core #1 (15.1 mm): 4 + 5 = 9 (10% pattern 5) (Grade Group 5), 14.6 mm K. PROSTATE, LEFT APEX LATERAL, NEEDLE CORE BIOPSY (1): - Prostatic adenocarcinoma, acinar type, involving 1 of 1 core; 75% involvement. - Core # 1 (18.5 mm): 4 + 4 = 8 (Grade Group 4), 13.2 mm Perineural invasion - Benign colorectal mucosa. L. PROSTATE, LEFT APEX MEDIAL, NEEDLE CORE BIOPSY (1): - Prostatic adenocarcinoma, acinar type, involving 1 of 1 core; 90% involvement. - Core #1 (18.7 mm): 4 + 4 = 8 (Grade Group 4), 16.2 mm Perineural invasion Overall Grade Group: Group 5 New Prostate Cancer Grading System*: This system was developed based on a study of greater than 20,000 prostate cancer cases treated with radical prostatectomy and greater than 5000 cases treated by rad iation therapy. The system w as developed to provide a smaller number of grades with the most significant prognostic differences, with Group 1 having the best prognosis and Group 5 the worst prognosis. T he highest grade group is reported for each biopsy series on a patient. Grade Group 1 ([place] score ?6) Grade Group 2 (Tai score 3+4=7) Grade Group 3 (Tai score 4+3=7) Grade Group 4 (Tai score 8) Grade Group 5 ([place] scores 9-10) * Laz IRELAND et al: A Jarad mporary Prostate Cancer Grading System: A Validated Alternative to the Tai Score. Eur Uro 2015 69(3):428-435 Diagnosis Deeper sections of (B): righ t base medial) and (I: left mid lateral) were examined. 06/01/2021 [facility] MEDICAL Comment No prostatic tissue was identified in (B). 16:09 [facility] The atypical glands of inter est in (I) are not represented in the deeper sections. LABORATORY SERVICES Attestation There was 06/01/2021 [facility] MEDICAL Elect ronically significant 16:09 [facility] signed lisseth Shaw, resident/fellow LABORATORY Alvino mejia MD on involvement in SERVICES 021 at 1609 the diagnostic evaluation of this case. By the signature below, the attending physician certifies that they have personally conducted a gross and/or microscopic examination of the described specimens and rendered or confirmed the above diagnosis. Clinical Elevated PSA 35.9; clinical diagnosis code: R97.20 06/01/2021 [facility] MEDICAL History 16:09 [facility] LABORATORY SERVICES Gross A. 06/01/2021 [facility] MEDICAL Description Received in formalin miladys d with proper patient identification (initials F, T) and RT base lateral is a single miner-white tissue core (1.4 cm in length x 0.1 cm in diameter). Submitted intact in A1. 16:09 [facility] LABORATORY B. SERVICES Received in formalin miladys d with proper patient identification (initials F, T) and RT base medial is a minute fragment of terrell-black tissue (0.1 x 0.1 by less than 0.1 cm). The specimen is submitted intact in B1. Please note: The tissue may not survive proce ssing. C. Received in formalin miladys d with proper patient identification (initials F, T) and RT mid lateral is a single miner-white tissue core (1.4 cm in length x 0.1 cm in diameter). Submitted intact in C1. D. Received in formalin miladys d with proper patient identification (initials F, T) and RT mid medial is a single miner-white tissue core (1.7 cm in length x 0.1 cm in diameter). Submitted intact in D1. E. Received in formalin miladys d with proper patient identification (initials F, T) and R apex medial is a single miner-white tissue core (1.4 cm in length x 0.1 cm in diameter). Submitted intact in E1. F. Received in formalin miladys d with proper patient identification (initials F, T) and right apex lateral is a single miner-white tissue core (1.0 cm in length x 0.1 cm in diameter). Submitted intact in F1. G. Received in formalin miladys d with proper patient identification (initials F, T) and LT base lateral are two miner-white tissue cores (0.6 cm and 1.1 cm in length, and each 0.1 cm in diameter). Entirely submitted in G1. H. Received in formalin miladys d with proper patient identification (initials F, T) and LT base medial is a single miner-white tissue core (1.9 cm in length x 0.1 cm in diameter). Submitted intact in H1. I. Received in formalin miladys d with proper patient identification (initials F, T) and left mid lateral is a single miner-white tissue core (0.5 cm in length x 0.1 cm in diameter). Submitted intact in I1. J. Received in formalin miladys d with proper patient identification (initials F, T) and left mid medial is a single miner-white tissue core (1.8 cm in length x 0.1 cm in diameter). Submitted intact in J1. K. Received in formalin miladys d with proper patient identification (initials F, T) and L apex lateral is a single miner-white tissue core (1.8 cm in length x 0.1 cm in diameter). Submitted intact in K1. L. Received in formalin miladys d with proper patient identification (initials F, T) and left apex medial is a single miner-white tissue core (1.9 cm in length x 0.1 cm in diameter). Submitted intact in L1. VELMA BROOKS(ASCP) 05/27/2021 10:33 Resident/Jose Rea, 06/01/2021 [facility] MEDICAL w: MD Carla 16:09 EDT CENTER LABORATORY SERVICES Performing Lab [facility] 06/01/2021 [facility] MEDIC AL LAB 16:09 [facility] LABORATORY SERVICES Scanned Images 06/01/2021 [facility] MEDICAL 16:09 EDT [facility] LABORATORY SERVICES Specimen Anatomical Collection Method Collection Time Receive d Time (Source) Location / / Volume Laterality Tissue ENTIRE APEX OF 05/26/2021 14:10 PROSTATE / Unknown EDT 10:12 EDT Tissue specimen ENTIRE BASE OF 05/26/2021 14:10 2020 (specimen) PROSTATE / Unknown EDT 10:12 EDT Tissue specimen RIGHT LATERAL 05/26/2021 14:10 021 (specimen) MIDDLE PERIPHERAL EDT 10:12 EDT ZONE OF PROSTATE / Unknown Tissue specimen ENTIRE MIDDLE 05/26/2021 14:10 021 (specimen) REGION OF PROSTATE EDT 10:12 EDT / Unknown Tissue specimen ENTIRE APEX OF 05/26/2021 14:10 2020 (specimen) PROSTATE / Unknown EDT 10:12 EDT Tissue specimen ENTIRE APEX OF 05/26/2021 14:10 2020 (specimen) PROSTATE / Unknown EDT 10:12 EDT Tissue specimen ENTIRE BASE OF 05/26/2021 14:10 2020 (specimen) PROSTATE / Unknown EDT 10:12 EDT Tissue specimen ENTIRE BASE OF 05/26/2021 14:10 2020 (specimen) PROSTATE / Unknown EDT 10:12 EDT Tissue specimen ENTIRE LATERAL 05/26/2021 14:10 2020 (specimen) MIDDLE REGIONAL EDT 10:12 EDT PART OF PERIPHERAL ZONE OF LEFT HALF PROSTATE / Unknown Tissue specimen ENTIRE MIDDLE 05/26/2021 14:10 021 (specimen) REGION OF PROSTATE EDT 10:12 EDT / Unknown Tissue specimen ENTIRE APEX OF 05/26/2021 14:10 2020 (specimen) PROSTATE / Unknown EDT 10:12 EDT Tissue specimen ENTIRE APEX OF 05/26/2021 14:10 2020 (specimen) PROSTATE / Unknown EDT 10:12 EDT Allen Roe MD PATHOLOGY ORDERABLES Performing Organization Address City/State/ZIP Code Phon e Number [facility] LABORATORY [address] [place] [phone] SERVICES documented in this encounter Visit Diagnoses Diagnosis Elevated prostate specific antigen (PSA) documented in this encounter Care Teams Window/Distribution Clerk Relationship Specialty Start Date End Date Scott Gutierrez MD PCP - General 08/31/[address] [place] [phone] documented as of this encounter
--- OUTSIDE RECORDS SUMMARY | 2022-08-11 01:28 | XMS_ITS | Encounter Summary ---
:1940 Author Organization [facility] Address [address] [place] [address] Care Team Providers Name Role Phone Scott Gutierrez MD Primary Care Provider Encounter Details Date Type Department Care Team Description 08/01/2021 Lab Requisition [facility] Misa Chaves for other Pathology & MD Juancarlos general examination Laboratory Medicine [address] [place], [place] 111 [facility] [id number] [place] [phone] Social History Tobacco Use Types Packs/Day Years Used Date Smoking Tobacco: Never Assessed Sex Assigned at Date Recorded Not on file documented as of this encounter Plan of Treatment Not on filedocumented as of this encounter Procedures Procedure Name Priority Date/Time Associated Diagnosis Comme nts SURGICAL PATHOLOGY Today 08/01/2021 9:45 EST Encounter for o ther Results for this general examination procedur e are in the results section. documented in this encounter Results SURGICAL PATHOLOGY (08/01/2021 9:45 EST) Component Value Ref Test Analysis Performed At [facility] gist Range Method Time Signature Note to The following 08/02/2021 [facility] MEDICAL Patient pathology results 18:06 [facility] have been LABORATORY interpreted by SERVICES your pathologist and may be available to you before your health provider has had the opportunity to review them. Please allow time for your provider to receive these results and explore management options, if applicable. Final A. STOMACH, ANTRUM, BIOPSY: 08/02/2021 [facility] MEDICAL Diagnosis - Oxyntic-type mucosa with no significant diagnostic a bnormality. 18:06 EST CENTER LABORATORY B. STOMACH, POLYP, BIOPSY: SER VICES - Polypoid foveolar hyperplasia. C. ESOPHAGUS, DISTAL, BIOPSY: - Intestinal metaplasia involving squamocolumnar mucosa. - Negative for dysplasia. Attestation By the signature 08/02/2021 [facility] WILLARD Lagunas Electronically below, the 18:06 [facility] signed by attending LABORATORY Scott Madrid, physician SERVICES on 08/02 certifies that at 18 06 they have 1) personally conducted a gross and/or microscopic examination of the described specimen(s), and/or personally interpreted the results of laboratory testing of the described specimen(s), and 2) personally rendered or confirmed the above diagnosis. Clinical Dysphagia 08/02/2021 [facility] MEDICAL History 18:06 [facility] LABORATORY SERVICES Gross A. 08/02/2021 [facility] MEDICAL Description Received in formalin miladys d with proper patient identification (initials F, T) and antrum bx are 3 miner tissues (0.3 x 0.1 x 0.1 cm up to 0.5 x 0.3 x 0.2 cm). Submitted entirely in A1. 18:06 [facility] LABORATORY B. SERVICES Received in formalin miladys d with proper patient identification (initials F, T) and stomach polyp are 2 miner-pink tissues (0.3 x 0.1 x 0.1 cm and 0.3 x 0.3 x 0.1 cm). Submitted entirely in B1. C. Received in formalin miladys d with proper patient identification (initials F, T) and distal esophagus bx are 2 miner-pink tissues (0.3 x 0.1 x 0.1 cm and 0.3 x 0.2 x 0.1 cm). Submitted entirely in C1. VELMA HANLEY(ASCP) 08/01/2021 15:46 Performing Lab [facility] 08/02/2021 [facility] MED[facility] AL LAB 18:06 [facility] LABORATORY SERVICES Scanned Images 08/02/2021 [facility] MEDICAL 18:06 [facility] LABORATORY SERVICES Specimen Anatomical Collection Method Collection Time Receive d Time (Source) Location / / Volume Laterality Tissue ENTIRE ESOPHAGUS / 08/01/2021 9:45 2020 Unknown EST 15:28 EST Tissue specimen ENTIRE STOMACH / 08/01/2021 9:45 08/01 (specimen) Unknown EST 15:28 EST Tissue specimen ENTIRE ESOPHAGUS / 08/01/2021 9:45 04/2021 (specimen) Unknown EST 15:28 EST Juancarlos Chaves MD PATHOLOGY ORDERABLES Performing Organization Address City/State/ZIP Code Phon e Number [facility]ATORY [address] [place] [address] SERVICES documented in this encounter Visit Diagnoses Diagnosis Encounter for other general examination documented in this encounter Care Teams Clerical Stock Inspector Relationship Specialty Start Date End Date Scott Gutierrez MD PCP - General 08/31/[address] [place] [phone] documented as of this encounter
--- OUTSIDE RECORDS SUMMARY | 2022-08-11 01:28 | XMS_ITS | Encounter Summary ---
:1940 Author Organization [facility] Address [address] [place] [address] Care Team Providers Name Role Phone Unknown, Provider Primary Care Provider Encounter Details Date Type Department Care Team Description 08/29/2010 Results Only [facility] Dionne Engel MD [phone] [address] [facility] [address] [place] [phone] (Wo rk) Social History Tobacco Use Types Packs/Day Years Used Date Smoking Tobacco: Never Assessed Sex Assigned at Date Recorded Not on file documented as of this encounter Plan of Treatment Not on filedocumented as of this encounter Procedures Procedure Name Priority Date/Time Associated Diagnosis Comme nts CYTOPATHOLOGY Routine 08/29/2010 0:00 EST Results for this procedure are i n the results section . documented in this encounter Results CYTOPATHOLOGY (08/29/2010 0:00 EST) Component Value Ref Test Analysis Performed At [facility] Method Time Signature Pathology CYTOPATHOLOGY REPORT ? [facility] Report: ? [facility] Reports generated via electr onic interface contain original data; ? however they are lacking the format of the original report. ? Caution should be taken when reading/interpreting unformatted reports. ? Name: ? NICOLASA, T MADDI R ? Accession #: ? [id number] ? : ? 1940 (Age: 69) ??M ?Collect Date: ? 08/29/2010 ? Location: ? [facility] ? Receive Date: ? 08/30/2010 ? Provider: ? DIONNE NISBE T MD ? Copy to: ?NOLAN AJAM IE MD ? CYTOLOGIC DIAGNOSIS: ? Urine, collection met hod not specified, cytologic evaluation: ? - Negative for malignant dipak ls. ? Document reviewed and electr onically signed by: ? BALA B RENETTA GARCIA ? Report Date: ??08/30/2010 16 :06 ? By the signature above, the attending physician certifies that he/she has ? personally conducted a gross and/or microscopic examination of the described ? specimens and rendered or co nfirmed the above diagnosis. ? Specimen Type: ? Urine, NOS ? Clinical History: ? Clinical diagnosis co de: ??790.93 ? Gross Description: ? One vial of Cytolyt w as received and processed by selective cellular ? enhancement technique. ? End of Report ? Specimen (Source) Anatomical Collection Method Collection Time Re ceived Time Location / / Volume Laterality 08/29/2010 08/30/2010 8:35 EST Dionne Engel MD PATHOLOGY ORDERABLES Performing Organization Address City/State/ZIP Code Phon e Number [facility]ORY [address] [place] [address] SERVICES [facility] [address] [place] [address] documented in this encounter Visit Diagnoses Not on filedocumented in this encounter Care Teams Counselor Marriage And Family Relationship Specialty Start Date End Date Unknown, Provider, PCP - General 08/30/10 08/30/10 documented as of this encounter
[2022-08-15 10:15] LABS: PSA, Ultrasensitive <0.01 ng/mL (<= 6.5)
[2022-08-16 18:27] LABS: Testosterone, Total <7.0 ng/dL (240-950)
== END 2022-08-11 01:25 | disposition home or self-care (01) ==
LOC: LBO 01:24
PROVIDERS: PCP Family Medicine; Visit Provider Nurse Practitioner Gerontology
DX: C61 Malignant neoplasm of prostate (principal)
CPT/HCPCS: 36415; 84153; 84403

== ENCOUNTER → 2022-08-24 15:21 | Outpatient (BNVA) | payer OTHER, SELFPAY | PROVIDERS: PCP Family Medicine; Visit Provider Nurse Practitioner Gerontology | DX: C61 Malignant neoplasm of prostate (principal); R97.20 Elevated prostate specific antigen [PSA] | CPT/HCPCS: 96402; J9217 ==

== ENCOUNTER 2022-12-05 02:26 | Outpatient (CLI) | payer MEDICARE, SELFPAY ==
[2022-12-06 17:15] LABS: PSA, Ultrasensitive <0.01 ng/mL (<= 7.2)
[2022-12-11 15:16] LABS: Testosterone, Total <7.0 ng/dL (240-950)
== END 2022-12-05 02:27 | disposition home or self-care (01) ==
PROVIDERS: PCP Family Medicine; Visit Provider Urology
DX: C61 Malignant neoplasm of prostate (principal)
CPT/HCPCS: 36415; 84153; 84403

== ENCOUNTER → 2022-12-07 08:19 | Outpatient (BNVA) | payer MEDICARE, SELFPAY | PROVIDERS: PCP Family Medicine; Referring Provider Family Medicine; Visit Provider Nurse Practitioner Gerontology | DX: C61 Malignant neoplasm of prostate (principal) | CPT/HCPCS: 96402; J9217 ==

== ENCOUNTER 2023-01-11 03:39 | Outpatient (CLI) | payer MEDICARE, SELFPAY ==
[2023-01-11 12:42] LABS: HCT 36.5 % (40.0-50.0); HGB 12.4 g/dL (13.5-17.5); MCH 33.2 pg (27.0-33.0); MCV 98 fL (80-95); MPV 11.1 fL (8.0-11.0); Platelet Count 131 10^3/uL (130-400); RBC 3.74 10^6/uL (4.36-5.78); RDW-SD 46.7 fL; WBC 5.01 10^3/uL (4.4-10.8)
[2023-01-11 13:33] LABS: Calculated LDL 82 mg/dL (<100); Cholesterol 152 mg/dL (<200); HDL Cholesterol 52 mg/dL (40-60); Triglyceride 90 mg/dL (<150)
[2023-01-11 13:43] LABS: Uric Acid 3.2 mg/dL (3.5-7.2)
[2023-01-16 14:21] LABS: Lab Add On Test DONE
[2023-01-16 15:22] LABS: TSH 4.22 uIU/mL (0.36-3.74)
== END 2023-01-11 03:40 | disposition home or self-care (01) ==
LOC: LOS 03:39
PROVIDERS: PCP Family Medicine; Visit Provider Family Medicine
DX: E78.5 Hyperlipidemia, unspecified (principal); M10.9 Gout, unspecified; R53.83 Other fatigue
CPT/HCPCS: 36415; 80061; 85027; 84443; 84550

== ENCOUNTER 2023-03-06 01:56 | Outpatient (CLI) | payer MEDICARE, SELFPAY ==
[2023-03-08 09:32] LABS: PSA, Ultrasensitive <0.01 ng/mL (<= 7.2)
[2023-03-12 11:55] LABS: Testosterone, Total <7.0 ng/dL (240-950)
== END 2023-03-06 01:57 | disposition home or self-care (01) ==
LOC: LBO 01:56
PROVIDERS: PCP Family Medicine; Visit Provider Nurse Practitioner Gerontology
DX: C61 Malignant neoplasm of prostate (principal); E03.9 Hypothyroidism, unspecified
CPT/HCPCS: 36415; 84153; 84403; 84443

== ENCOUNTER → 2023-03-13 10:01 | Outpatient (BNVA) | payer MEDICARE, SELFPAY | PROVIDERS: PCP Family Medicine; Visit Provider Nurse Practitioner Gerontology | DX: C61 Malignant neoplasm of prostate (principal) | CPT/HCPCS: 96402; J9217 ==

== ENCOUNTER 2023-06-07 02:15 | Outpatient (CLI) | payer MEDICARE, SELFPAY ==
[2023-06-09 11:05] LABS: PSA, Ultrasensitive <0.01 ng/mL (<= 7.2)
[2023-06-13 09:13] LABS: Testosterone, Total <7.0 ng/dL (240-950)
== END 2023-06-07 02:16 | disposition home or self-care (01) ==
LOC: LBO 02:16
PROVIDERS: PCP Family Medicine; Visit Provider Nurse Practitioner Gerontology
DX: C61 Malignant neoplasm of prostate (principal)
CPT/HCPCS: 36415; 84153; 84403

== ENCOUNTER 2023-06-11 10:43 | Outpatient (CLI) | payer MEDICARE, SELFPAY ==
[2023-06-11 12:13] LABS: Abs Immature Grans 0.01 10^3/uL (0.0-0.06); Absolute Basophil Count 0.05 10^3/uL (0.0-0.2); Absolute Eosinophil Count 0.21 10^3/uL (0.0-0.7); Absolute Lymphocyte Count 1.35 10^3/uL (1.2-3.4); Absolute Monocyte Count 0.58 10^3/uL (0.1-0.8); Absolute Neutrophil Count 1.48 10^3/uL (1.2-6.7); Basophils % 1.4; Eosinophils % 5.7; HCT 34.4 % (40.0-50.0); HGB 11.8 g/dL (13.5-17.5); Immature Grans % 0.3; Lymphocytes % 36.7; MCH 33.1 pg (27.0-33.0); MCHC 34.3 % (32.0-36.0); MCV 97 fL (80-95); Monocytes % 15.8; Neutrophils % 40.1; Platelet Count 156 10^3/uL (130-400); RBC 3.56 10^6/uL (4.36-5.78); WBC 3.68 10^3/uL (4.4-10.8)
[2023-06-11 12:58] LABS: ALT 51 U/L (16-63); AST 44 U/L (15-37); Albumin 3.6 g/dL (3.4-5.0); Alkaline Phosphatase 92 U/L (46-116); Anion Gap 8.4 mmol/L (3-11); BUN 15 mg/dL (7-18); Bilirubin, Total 0.8 mg/dL (0.2-1.0); CO2 27.6 mmol/L (21.0-32.0); CREATININE 1.1 mg/dL (0.70-1.30); Calcium 9.6 mg/dL (8.5-10.1); Chloride 100 mmol/L (98-107); Estimated GFR 67.86 (mL/min/1.73m2); Glucose 100 mg/dL (74-106); Magnesium 1.9 mg/dL (1.8-2.4); Sodium 136 mmol/L (136-145); Total Protein 6.9 g/dL (6.4-8.2)
== END 2023-06-11 10:44 | disposition home or self-care (01) ==
LOC: LOS 10:43
PROVIDERS: PCP Family Medicine; Visit Provider Nurse Practitioner Family
DX: R19.8 Other specified symptoms and signs involving the digestive system and abdomen (principal); R19.7 Diarrhea, unspecified; R10.9 Unspecified abdominal pain
CPT/HCPCS: 36415; 80053; 83735; 85025

== ENCOUNTER 2023-06-12 11:02 | Outpatient (REF) | payer MEDICARE, SELFPAY ==
[2023-06-12 23:03] LABS: Campylobacter PCR Negative (Negative); Salmonella PCR Negative (Negative); Shiga Toxin PCR Negative (Negative); Shigella/Enteroinvasive Ecoli Negative (Negative)
== END 2023-06-12 11:03 | disposition home or self-care (01) ==
LOC: LBN 11:02
PROVIDERS: Nurse Practitioner Family; PCP Family Medicine; Visit Provider Family Medicine
DX: R19.7 Diarrhea, unspecified (principal)
CPT/HCPCS: 87505; 87177

== ENCOUNTER → 2023-06-14 02:20 | Outpatient (CLI) | payer MEDICARE, SELFPAY ==
--- NOTE | 2023-06-14 07:45 | DI.CT_ITS ---
Exam(s) CT ABDOMEN PELVIS W EXAM: CT ABDOMEN PELVIS W CLINICAL HISTORY: abd pain, r10.9,? pathology TECHNIQUE: Imaging Protocol: Axial computed tomography images with coronal and sagittal reformatted images were created and reviewed CONTRAST MATERIAL: Intravenous: Omnipaque 350 Contrast volume:100 mL Oral: Yes COMPARISON: CT CT ABDOMEN PELVIS W from 06/24/2021 FINDINGS: ABDOMEN: Lung Bases: Normal where visualized. Coronary artery calcification and/or stents. Liver: There is a lobulated contour of the liver suggesting hepatic cirrhosis. No measurable mass. Portal, Superior Mesenteric, and Splenic Veins: Unremarkable. Gallbladder and Biliary Tract: No radiodense calculus or dilation. Pancreas: Normal density, no abnormal calcifications or inflammatory process. Spleen: Normal. Adrenals: No masses seen. Kidneys: Normal size, contour and axis. No radiodense stones or obstructive uropathy. No masses seen. Retroaortic left renal vein. Abdominal Aorta: Abdominal portion non-dilated. Atherosclerosis. Bowel: There is diverticulosis of the colon without evidence of acute diverticulitis. There is no ev idence of bowel obstruction. There is mild bowel wall thickening and surrounding stranding of the rec larry suspicious for proctitis. Appendix is unremarkable. Peritoneal Cavity: No ascites, collection or mesenteric inflammatory response. No free air. Lymph Nodes: Within normal limits. Bones: Degenerative changes are present throughout the spine. Soft Tissues: Unremarkable. PELVIS: Bladder: Symmetric distention, no gross wall thickening. Reproductive Organs: Prostatic therapy devices are present. Lymph Nodes: Within normal limits. Bones: Within normal limits for the patient's age. IMPRESSION: 1. Thickening of the wall of the rectum with mild in inflammatory changes suspicious for proctitis. 2. Lobulated appearance of the liver suggesting hepatic cirrhosis. Please correlate clinically. RADIATION DOSE DELIVERED: 774.35mGy.cm Total DLP DATA REPOSITORY: All CT scans at this facility are submitted to the National Radiology Data Registry (NRDR) Dose Index Registry (DIR) with the [employer] (ACR). RADIATION OPTIMIZATION: All CT scans at this facility use at least one of these dose optimization te chniques: automated exposure control; mA and/or kV adjustment per patient size (includes targeted exa ms where dose is matched to clinical indication); or iterative reconstruction.
[2023-06-14] MEDS: Barium Sulfate 2% W/V-Berry Smoothie 450 ML BTL 900 ML PO (10:22)
[2023-06-14] MEDS: Normal Saline - Diluent 50 ML VIAL IJ (12:11)
[2023-06-14] MEDS: Omnipaque 350 MG/ML 500 ML BTL-Imaging package IJ (12:12)
== END ==
PROVIDERS: PCP Family Medicine; Visit Provider Nurse Practitioner Family
DX: R10.9 Unspecified abdominal pain (principal)
CPT/HCPCS: 74177

== ENCOUNTER → 2023-07-02 15:02 | Outpatient (BNVA) | payer MEDICARE, SELFPAY | PROVIDERS: PCP Family Medicine; Referring Provider Family Medicine; Visit Provider Surgery | DX: R19.7 Diarrhea, unspecified (principal); R63.4 Abnormal weight loss; R10.9 Unspecified abdominal pain; K22.70 Barrett's esophagus without dysplasia | CPT/HCPCS: 99214; 99243 ==

== ENCOUNTER 2023-07-03 11:11 | Day surgery (SDC) | payer MEDICARE, SELFPAY ==
[2023-07-03 11:35] VITALS: BP 115/55; PULSE 60; RESP 16; TEMP 36.1; O2SAT 97
[2023-07-03] MEDS: Lactated Ringers 1,000 ML 80 ML IV (12:33)
--- NOTE | 2023-07-03 12:36 | ANES.PREOP_ITS ---
General Info Date of Service Date Performed: 07/03/23 Height: 5 ft 5 in Weight: 71.2 kg Body Mass Index (BMI): 26.1 Surgical Procedure: Operation Date: 07/03/23 11:40 Proposed Procedure Side Surgeon p Flexible Sigmoidoscopy Margaret Rios, DO Meds Allergies and Home Medications Allergies Allergy/AdvReac Type Severity Reaction Status Date / Time No Known Allergies Allergy Verified 07/03/23 11:41 Home Medication Medication Instructions Recorded creamy vaseline See Rx Instructions topical 10/17/19 .COMPLEX vitamin B complex (B 1 tab PO DAILY 10/22/20 Complex-Vitamin B12 tablet) calcium carbonate 600 mg calcium 600 mg PO DAILY 07/14/21 (1,500 mg) tablet (Calcium) cholecalciferol (vitamin D3) 10 10 mcg PO DAILY 07/14/21 mcg (400 unit) capsule leuprolide (3 month) 11.25 mg (3 mg IM 08/01/21 month) intramuscular syringe kit (Lupron Depot) naproxen sodium 220 mg tablet 220 mg PO BID 01/30/22 (Aleve) pantoprazole 40 mg tablet,delayed 40 mg PO DAILY #90 tab-caps 11/20/22 release allopurinol 300 mg tablet 300 mg PO DAILY #90 tab-caps 12/25/22 simvastatin 40 mg tablet 40 mg PO DAILY #90 tab-caps 12/25/22 Current Visit Medications: Current Medications Generic Name Dose Route Start Last Admin Trade Name Freq PRN Reason Stop Dose Admin Ringer's Solution 1,000 mls @ 80 mls/hr 07/03/23 06:00 07/03/23 12:33 IV 08/01/23 23:59 80 mls/hr INFUSION ZONIA Administration IV Miscellaneous Supplies 1 each 07/03/23 06:00 Iv Access IV 08/01/23 23:59 DIRECTED ZONIA Sodium Biphosphate/Sodium Phosphate 0 ml 07/03/23 08:00 07/03/23 12:09 Na Phosphate Enema 133 Ml Btl AK 08/02/23 07:59 1 btl DIRECTED ZONIA Administration Sodium Chloride 0 ml 07/03/23 06:00 Normal Saline Flush 10 Ml Syr IV 08/01/23 23:59 PRN PRN Sodium Chloride 0 ml 07/03/23 06:00 Normal Saline 10 Ml Vial IJ 08/01/23 23:59 DIRECTED PRN Sterile Water 0 ml 07/03/23 06:00 Water,Injection,Sterile 10 Ml Vial IJ 08/01/23 23:59 DIRECTED PRN PFSH Active Problems Active Problems: Problem Status Onset Code Former smoker Z87.891 Diverticula of colon K57.30 Atherosclerosis of abdominal aorta I70.0 Alcoholic cirrhosis of liver without ascites K70.30 Coronary artery calcification seen on CAT scan I25.10 Chronic blood loss anemia D50.0 Chronic radiation proctitis K62.7 Elevated TSH R79.89 Aspiration into airway T17.908A Barretts esophagus K22.70 Medical History Medical History Adhesions of prepuce and glans penis (03/19/18) Constipation Dysphagia Elevated LFTs Former smoker QUIT 1991 Gout Hematoma HH (hiatus hernia) (09/30/13) Hip arthritis Hyperlipemia Prostate cancer Psoriasis Tubular adenoma 10/03/13 X 5 Surgical History Surgical History Arthroplasty of knee 10/03/11; LEFT History of arthroscopy of knee History of esophagogastroduodenoscopy (EGD) (~07/2021) History of surgical procedure History of tonsillectomy LACERATION REPAIR (09/23/1949) NASOPHARYNGOSCOPY (08/17/97) Tonsillectomy (~1947) Tobacco Smoking/Tobacco Use Status: Former Tobacco Use Passive smoking exposure: Yes Second hand exposure: Yes Alcohol Alcohol Intake: current Alcohol intake frequency: a few times a week Alcohol type: hard liquor Substance Use Substance use: Never Substance use type: does not use Details: alcohol: t-1 , 1/4 ounce alcohol 07/02/23: 1 beer Vital Signs and Lab Results Vital Signs Most Recent Vital Signs in EMR: Most Recent Vital Signs Temp Pulse Resp BP Pulse Ox 36.1 C L 60 16 115/55 L 97 07/03/23 11:35 07/03/23 11:35 07/03/23 11:35 07/03/23 11:35 07/03/23 11:35 Lab Results Blood Type / Crossmatch: No Data to Display Complete Blood Count: White Blood Count 3.68 10^3/uL (4.4-10.8) L 06/11/23 10:46 Red Blood Count 3.56 10^6/uL (4.36-5.78) L 06/11/23 10:46 Hemoglobin 11.8 g/dL (13.5-17.5) L 06/11/23 10:46 Hematocrit 34.4 % (40.0-50.0) L 06/11/23 10:46 Platelet Count 156 10^3/uL (130-400) 06/11/23 10:46 Complete Metabolic Panel: Sodium 136 mmol/L (136-145) 06/11/23 10:46 Potassium 4.0 mmol/L (3.5-5.1) 06/11/23 10:46 Chloride 100 mmol/L (98-107) 06/11/23 10:46 Carbon Dioxide 27.6 mmol/L (21.0-32.0) 06/11/23 10:46 BUN 15 mg/dL (7-18) 06/11/23 10:46 Creatinine 1.1 mg/dL (0.70-1.30) 06/11/23 10:46 Est GFR (CKD-EPI 2020) 67.86 (mL/min/1.73m2) 06/11/23 10:46 Magnesium 1.9 mg/dL (1.8-2.4) 06/11/23 10:46 Calcium 9.6 mg/dL (8.5-10.1) 06/11/23 10:46 Albumin 3.6 g/dL (3.4-5.0) 06/11/23 10:46 Glucose 100 mg/dL (74-106) 06/11/23 10:46 Liver Function Panel: Alanine Aminotransferase (ALT/SGPT) 51 U/L (16-63) 06/11/23 10: 46 Aspartate Amino Transf (AST/SGOT) 44 U/L (15-37) H 06/11/23 10: 46 Coagulation Panel: No Data to Display Cardiac Panel: No Data to Display Arterial Blood Gas: No Data to Display Venous Blood Gas: No Data to Display Pancreas Panel: No Data to Display Thyroid Panel: No Data to Display Infectious Disease: No Data to Display Blood Cultures: No Data to Display Toxicology Panel: No Data to Display Imaging and Studies Imaging and Studies Study information below may be from another EMR and interpreted by another provider. Please see original notes in EMR for more complete details. Stress Test Summary: Summary: 1. Myocardial perfusion imaging: No myocardial perfusion defects noted. 2. Stress ECG conclusions: Barrios treadmill score: -21. This score predicts a high risk of cardiac events. 3. Impressions: Typical symptoms developed with exercise. Significant EKG changes in multiple leads with prolonged time to improvement in recovery. Abnormal hemodynamics with exercise. Normal perfusion, however significant loop of bowel on rest images. No TID. Patient will likely require LHC, patient should follow up with cardiology. 09/06/15 Anesthesia Assessment and Plan Anesthesia History Personal History: No History of Anesthesia Complications Family History: No Family History of Anesthesia Complications Exercise Tolerance Exercise Tolerance: Metabolic Equivalents>4 Pertinent Negatives Pertinent Negatives: No Symptoms of GERD Cardiac & Pulmonary Exam Cardiac Exam: Normal S1/S2 Heart Sounds Pulmonary Exam: Clear Bilateral Breath Sounds Implantable Cardiac Device Does patient have a Pacemaker or an ICD?: No Airway Exam Known Difficult Airway: No Mallampati Class: 2 Mouth Opening: Normal (> 3cm) Thyromental Distance: Greater than 3 cm Neck Range of Motion: Full ROM Neck Circumference: Normal Teeth Condition: Normal Dentition ASA Classification ASA Score: ASA 3 Emergency Case?: No NPO Status NPO Status: NPO Clears >2 hours, Solids >8 hours Anesthesia Plan Resuscitation Status: Full Code Anesthesia Technique: General Anesthesia Airway Planned: Natural Airway Monitors Used: Standard Monitors
[2023-07-03 12:37] VITALS: BMI 26.1
--- NOTE | 2023-07-03 12:46 | BOWEL_PTH ---
PATIENT: Ministerio Trevino LOC: [facility] U#:[id number] AGE/SX: 82/M ROOM: RE07/03/[address]: Margaret Rios : 1940 BED: DIS: 07/03/2023 SPEC #: [id number] RECD: 07/03/23 14:46 STATUS: ANG REQ #: [id number] DENAE: 07/03/23 12:[address]: Margaret Rios DEPT: Surgical Specimen RECD BY: Sandy Watt ENTERED: 07/03/23 14:47 SP TYPE: Bowel OTHR DR: Demarco Lopez MD Tissues: 1 - BIOPSY BOWEL 2 - BIOPSY BOWEL 3 - BIOPSY BOWEL Procedures: GROSS AND MICRO LEVEL 4 Comments: [id number]
[2023-07-03 12:59] VITALS: BP 99/53; PULSE 55; RESP 20; TEMP 36.4; O2SAT 95
--- NOTE | 2023-07-03 13:04 | W.COLOREPORT ---
Date of service: 07/03/23 Time of Service: 13:04 Colonoscopy Report Date of procedure: 07/03/23 Pre-op diagnosis general: Left lower quadrant pain/abnormal CT/history of radiation for prostate canc Post-op diagnosis procedure note: other (Diverticula/colitis) Procedure: Flexible sigmoid Surgeon: Margaret Rios Anesthesia Type: General:No Airway Estimated blood loss (mL): 2 Pathology: other Complications: None Disposition: same day Prep: Other (Fleets enemas in preop) Procedure Description: After informed consent was obtained the patient was taken to the procedure room and placed in a left decubitous position. Monitors were applied and a time out was done. The patients name, date of , procedure, allergies to medications and metal in their body was reviewed. The patient was then sedated. Once sedated and comfortable a rectal exam was done. External exam was normal. Internal exam revealed a normal sphincter tone and no palpable masses. The prostate not palpable. Patient has a history of rectal radiation for prostate cancer The scope was then introduced and retrofelexed. No internal hemorrhoids were identified. The scope passed was passed up to 25 cm. At that point the mucosa is very erythematous and edematous. It is difficult to find the lumen. At this point the procedure was abandoned. It looks like he has multiple small mouth diverticula. The findings in the colon appear more, patible with acute diverticulitis then with radiation proctitis. There is mild erythema in the posterior rectal wall, but this could easily be from the enemas he had preop. there is a small flat 5 mm polyp in the rectum. This was removed with a cold biting forcep. Biopsies are taken at 12, 3, 6 and 9:00 in the rectum. All specimen was retrieved and no bleeding is noted. A biopsy was taken at 20 cm as well. The scope was removed and the patient was woken up and taken back to Same day surgery in stable condition. The patient tolerated the procedure well and there were no immediate complications.
[2023-07-03] MEDS: metroNIDAZOLE 500 MG/100 ML BAG 100 MG IVPB (13:09)
[2023-07-03] MEDS: Normal Saline Flush 10 ML SYR IV ×2 (13:09→14:15)
--- NOTE | 2023-07-03 13:10 | PDOC.DSDIS_ITS ---
Date of service: 07/03/23 Time of Service: 13:10 Discharge Plan Disposition Patient Disposition: Home Discharge Details Attending Provider: Margaret Rios Primary Care Provider: Demarco Lopez Home Meds and New Rx's Prescriptions: New metronidazole 500 mg tablet 500 mg PO TID 7 Days Qty: 21 0RF ciprofloxacin HCl [Cipro] 500 mg tablet 500 mg PO BID 7 Days Qty: 14 0RF Continued creamy vaseline See Rx Instructions topical .COMPLEX Rx Instructions: 1 applic prn topical ; vitamin B complex [B Complex-Vitamin B12] Tablet 1 tab PO DAILY naproxen sodium [Aleve] 220 mg tablet 220 mg PO BID cholecalciferol (vitamin D3) 10 mcg (400 unit) capsule 10 mcg PO DAILY calcium carbonate [Calcium 600] 600 mg calcium (1,500 mg) tablet 600 mg PO DAILY pantoprazole 40 mg tablet,delayed release (DR/EC) 40 mg PO DAILY Qty: 90 4RF allopurinol 300 mg tablet 300 mg PO DAILY Qty: 90 4RF simvastatin 40 mg tablet 40 mg PO DAILY Qty: 90 4RF Lupron Depot (3 month) 11.25 mg Syringe Kit IM Patient Comments: pt. reports this was the first 3 month one Discharge Instructions Instructions: Diverticulitis (GEN), Diverticulosis (GEN), Diverticulitis Diet (GEN) Additional Instructions: [facility] Colonoscopy Post- Op Instructions Instructions for Everyone who is given Anesthesia: For your safety, please do the following for the next twenty-four (24) hours: *Do Not operate a motor vehicle (car, truck, motorcycle, etc.) *Do Not drink alcoholic beverages or use any recreational drugs for the first 24 hours or while taking pain medications. The medications in your body may have a reaction that can be dangerous. *Do Not make any important decisions or sign any important papers. Findings: diveritcula diverticulitis - Finish antibiotics -yogurt daily while on antibiotics -soft diet for the next 5 days -if increase in abdominal pain/vomiting/fever >100.5, go to ER Follow up: 2 wks 1. No lifting over 20 pounds or strenuous activity for the first 24 hours after your procedure. After 24 hours there are no restrictions on your activity but you may feel fatigued for a few days. 2. After you arrive home you may have a light meal and return to your normal diet as you can tolerate it without feeling sick to your stomach. 3. You may have a bloated, gaseous feeling in your belly (abdomen) after a colonoscopy. Passing gas and belching will help. Walking or lying down on your left side with your knees flexed may relieve the discomfort. Call the office at [phone] (Office) or [phone] (Hospital) right away if you notice any of the following: a.Vomiting of blood or ?coffee ground stools?. b.Rectal bleeding 1Tbsp, blood clots or continuous bleeding. c.Severe belly (abdominal) pain. d.A hard distended belly (abdomen) and an inability to pass gas. 4. Please don?t expect to have a normal BM (bowel movement) for 2-3 days after your procedure. 5. If there are questions regarding the findings of your procedure, please contact your doctor 6. If you are unable to contact your doctor with a problem, contact the hospital at [phone]. 7. Continue all your regular medications unless directed otherwise. I understand the above instructions and have no questions. Signature of Patient or Adult Escort Name of Responsible Adult Escort Signature of Nurse Date/Time Gastrointestinal Soft Diet Overview Overview What is a gastrointestinal soft diet? This diet is soft in texture, low in fiber, and easy to digest. The goal is to decrease) ?in the bowel that may cause and discomfort. This diet is often used after abdominal surgery or as a transitional diet after flares. Meats & Meat Substitutes ?? Foods Allowed: Chicken, turkey, fish, tender cuts of beef and pork, ground meats, eggs, creamy nut butters, tofu, skinless hot dogs, sausage patties without whole spices ?? Foods to Avoid : Tough, fibrous meats with gristle, meat with casings (hot dogs, sausage, kielbasa), lunch meats with whole spices, shellfish, beans, chunky peanut butter, nuts Fruits and Juices ?? Foods Allowed: Fruit juices without pulp, banana, avocado, applesauce, canned peaches and pears, cooked fruit without the skin/seeds.? Ground or over- cooked fruits.? Fruits ground finely in a ?smoothie?. ?? Foods to Avoid: Juices with pulp, fresh fruit (except banana and avocado), dried fruits, canned fruit cocktail and pineapple, coconut, frozen/thawed berries Vegetables ?? Foods Allowed: Well-cooked or canned vegetables, potatoes without skin, tomato sauces, vegetable juice ?? Foods to Avoid: Raw vegetables, all corn, all mushrooms, stewed tomatoes, potato skins, stir-parra vegetables, sauerkraut, pickles, olives, all dried beans, peas, and legumes Cereals and Grains ?? Foods Allowed: Low- fiber dry or cooked cereals (less than 2 grams fiber per serving), white rice, pasta, macaroni, or noodles ?? Foods to Avoid: Cereals with nuts, berries, dried fruits, whole grain cereals, bran cereals, granola, brown or wild rice, whole grain pasta Breads and Crackers ?? Foods Allowed: White/refined breads and rolls, plain bagel, toast, plain crackers, brenda crackers ?? Foods to Avoid: Whole grain breads- including white whole grain; bread/ rolls with raisins, nuts or seeds, multi-grain crackers Dairy ?? Foods Allowed: Milk, cheese, yogurt, milkshakes, pudding, ice cream, cottage cheese, sherbet ;?lactose free or low lactose versions if lactose intolerant ?? Foods to Avoid: Dairy product mixed with fresh fruit (except banana), berries, nuts or seeds Desserts ?? Foods Allowed: Plain cake, pudding, custard, ice cream, sherbet, gelatin, fruit whips ?? Foods to Avoid: Any dessert that contains nuts, dried fruits, coconut, or fruits with seeds Herbs and Spices ?? Foods Allowed: All ground spices or herbs, salt ?? Foods to Avoid: Whole spices such as peppercorns, whole cloves, anise seeds, celery seeds, shayla, [place] seeds, and fresh herbs Snacks/Other Foods ?? Foods Allowed: Sugar, honey, jelly, mayonnaise, mustard, soy sauce, oil, butter, margarine, marshmallows, cookies without dried fruits or nuts, snack chips and pretzels using refined flours ?? Foods to Avoid: Carbonated beverages, jams or jellies with seeds, popcorn After several weeks, slowly start to reintroduce the ?Foods to Avoid? back into your diet unless your doctor has told you otherwise. Try a small portion of one of these foods each day. If it does not bother you within 24 hours, it can be added to your diet. Continue to add new foods in this way. Some people may continue to have food sensitivities and may need to continue to avoid certain foods. If you cannot tolerate a food, avoid that food for a few weeks before you try it again. Guidelines when eating 1.??? Avoid any food that you cannot tolerate or that causes gas, bloating, or stomach pain. 2.??? Make time for your meals. Do not eat while you are in a hurry. Cut your food into small pieces. Chew each bite to a mashed potato consistency. Do not eat when you cannot concentrate on chewing well. 3.??? Drink at least 6-8 cups of fluid per day? Fluids include: water, coffee, tea, juice, milk, popsicles, soups, gelatin, pudding, ice cream, sherbet, and yogurt. In addition, choose caffeine-free beverages more often, especially if you are having?diarrhea. 4.??? A daily multivitamin may be recommended if diet is limited in amounts or variety of foods. Do not take any herbal supplements without first checking with your doctor. Stand Alone Forms: Anesthesia Discharge Inst., Lillie Kumar ([facility]) Referrals: Margaret Rios DO [OSTEOPATHIC DOCTOR] - Activity:: see above Diet:: soft diet for 5 days DS: Diagnosis Discharge Diagnosis (1) Diverticula of colon: Status: Acute (2) Former smoker: Status: Acute (3) Atherosclerosis of abdominal aorta: Status: Acute (4) Coronary artery calcification seen on CAT scan: Status: Acute (5) Alcoholic cirrhosis of liver without ascites: Status: Acute (6) Chronic blood loss anemia: Status: Acute (7) Barretts esophagus: Status: Acute (8) Dysphagia: (9) Constipation: (10) Gout: (11) HH (hiatus hernia): (12) Hyperlipemia: (13) Tubular adenoma: (14) Diverticulosis: Status: Acute
[2023-07-03 13:18] VITALS: BP 101/56; PULSE 51; RESP 18; TEMP 36.4; O2SAT 99
[2023-07-03 13:30] VITALS: BP 102/50; PULSE 55; RESP 18; TEMP 36.5; O2SAT 96
[2023-07-03 13:30] LABS: Abs Immature Grans 0.01 10^3/uL (0.0-0.06); Absolute Basophil Count 0.04 10^3/uL (0.0-0.2); Absolute Eosinophil Count 0.15 10^3/uL (0.0-0.7); Absolute Lymphocyte Count 0.95 10^3/uL (1.2-3.4); Absolute Monocyte Count 0.54 10^3/uL (0.1-0.8); Basophils % 1.1; Eosinophils % 4.3; HCT 30.7 % (40.0-50.0); HGB 10.5 g/dL (13.5-17.5); Immature Grans % 0.3; Lymphocytes % 27.2; MCHC 34.2 % (32.0-36.0); MCV 97 fL (80-95); MPV 9.4 fL (8.0-11.0); Monocytes % 15.5; Neutrophils % 51.6; Platelet Count 136 10^3/uL (130-400); RBC 3.18 10^6/uL (4.36-5.78); RDW 13.6 % (11.8-14.1); RDW-SD 48.7 fL; WBC 3.49 10^3/uL (4.4-10.8)
--- NOTE | 2023-07-03 13:30 | W.ANESPOSTOP ---
Postoperative Evaluation Date, Time and Location Date Performed: 07/03/23 Time Performed: 13:30 Patient Location: Day Surgery Unit Vital Signs Most Recent Imported Vital Signs: Most Recent Vital Signs Temp Pulse Resp BP Pulse Ox 36.4 C L 51 L 18 101/56 L 99 07/03/23 13:18 07/03/23 13:18 07/03/23 13:18 07/03/23 13:18 07/03/23 13:18 Pain Score Most Recent Pain Score: Most Recent Pain Score Pain Level 0 07/03/23 13:18 Assessment Mental Status: Awake (Alert & Oriented to Patient Baseline) Airway and Respiratory Function: Patent airway with normal (patient baseline) respiratory exam Cardiovascular Function: Hemodynamically Stable Hydration Status: Adequately Hydrated Nausea & Vomiting: No Nausea or Vomiting Pain: Pt. Denies Any Pain Peripheral Nerve Block: Patient did not receive a nerve block
[2023-07-03 13:55] LABS: C-Reactive Protein 0.47 mg/dL (0.0-0.3)
[2023-07-03] MEDS: CIPROFLOXACIN 400 MG/200 ML BAG 200 MG IVPB (14:15)
[2023-07-03] MEDS: Normal Saline 10 ML VIAL IJ (15:21)
[2023-07-03 15:30] VITALS: BP 98/43; PULSE 63; RESP 18; TEMP 36.6; O2SAT 99
[2023-07-03 15:35] VITALS: BP 122/68; PULSE 65; RESP 18; TEMP 36.6; O2SAT 98
== END 2023-07-03 15:30 | disposition home or self-care (01) ==
LOC: SUR 11:12
PROVIDERS: PCP Family Medicine; Visit Provider Surgery
PROC: 0DJD8ZZ Inspection of Lower Intestinal Tract, Via Natural or Artificial Opening Endoscopic (ICD-10-PCS; CPT 45330; principal; 2023-07-03 11:30)
DX: R10.32 Left lower quadrant pain (principal); K63.89 Other specified diseases of intestine; K62.1 Rectal polyp; K57.30 Diverticulosis of large intestine without perforation or abscess without bleeding; Z92.3 Personal history of irradiation; Z86.010 Personal history of colon polyps
CPT/HCPCS: 45380; 36415; 88305; 96365; 96366; 85025; 86140; J0744

== ENCOUNTER → 2023-07-16 09:51 | Outpatient (BNVA) | payer MEDICARE, SELFPAY | PROVIDERS: PCP Family Medicine; Referring Provider Family Medicine; Visit Provider Surgery | DX: Z48.815 Encounter for surgical aftercare following surgery on the digestive system (principal); K57.92 Diverticulitis of intestine, part unspecified, without perforation or abscess without bleeding; K62.7 Radiation proctitis; K57.30 Diverticulosis of large intestine without perforation or abscess without bleeding; K44.9 Diaphragmatic hernia without obstruction or gangrene | CPT/HCPCS: 99213 ==